=== PATIENT | female | born 1990 | race Caucasian/White ===

== ENCOUNTER 2016-05-12 16:23 | Outpatient (CLI) | payer BC, MEDICAID ==
[~2016-05-12] VITALS: Ht 175.3 cm; Wt 111.6 kg
[~2016-05-12 16:23] MED LIST: ACHD5005 PO; ALDACTONE25 MG; AMLO2.5T; AMLO5TAB4 PO; BCP; CIPR500T4 PO; HYDR1TAB PO; IBP600T1 PO; IBP800T PO; LANS30CA PO; METH4TAB PO; MTF500T; NAPR-243 PO; PNV91TAB3 PO; PRD20T PO; PREN-102 PO; PROG100C3; SULF1TAB35 PO; SULF1TAB38 PO; [UNRECOGNIZED DRUG - OTHER]; [UNRECOGNIZED DRUG - REMARK]
[2016-05-12] MEDS ORDERED: METR500T PO (16:31)
[2016-05-12] MEDS ORDERED: NS IV 1000 ML 1,000 ML IV SCH (16:45)
--- NOTE | 2016-05-13 11:22 | Physician Query-Final Dx ---
LISSETTE DEE 05/13/16 1122: Final Diagnosis Give Final Diagnosis Please give Final Diagnosis IVANA PEREZ DO 05/21/16 0722: Final Diagnosis Give Final Diagnosis 27 week IUP UTI Uterine cramping Vaginal discharge LISSETTE DEE May 13, 2016 11:22 IVANA PEREZ DO May 21, 2016 07:22
== END 2016-05-12 18:18 ==
LOC: WSo 16:23 → LDRP 16:24 → WSo 18:18
PROVIDERS: ATTEND Obstetrics & Gynecology
DX: O23.92 Unspecified genitourinary tract infection in pregnancy, second trimester (principal); O26.892 Other specified pregnancy related conditions, second trimester; N89.8 Other specified noninflammatory disorders of vagina; Z3A.27 27 weeks gestation of pregnancy
CPT/HCPCS: 96360; 99214

== ENCOUNTER 2016-07-01 19:28 | Outpatient (CLI) | payer BC, MEDICAID ==
[~2016-07-01] VITALS: Ht 170.2 cm; Wt 111.1 kg
[~2016-07-01 19:28] MED LIST changes: +METR500T PO
[2016-07-01 19:45] VITALS: BP 123/72
[2016-07-01 20:13] LABS: BILIRUBIN,URINE NEGATIVE (NEGATIVE); KETONES,URINE NEGATIVE (NEGATIVE); LEUKOCYTE ESTERASE ,URINE 2+ (NEGATIVE); NITRITE,URINE NEGATIVE (NEGATIVE); PH,URINE 6.5 (5-9); PROTEIN,URINE 1+ (NEGATIVE); UROBILINOGEN,URINE NORMAL (NORMAL)
[2016-07-01 20:21] LABS: CALCIUM OXALATE CRYSTALS,UR RARE /LPF; SQUAMOUS EPITHELIAL CELL,UR >50 /HPF
[2016-07-01 21:05] VITALS: BP 118/64
[2016-07-01] MEDS ORDERED: D5 LR IV SOLUTION 1,000 ML IV SCH (22:00)
[2016-07-01] MEDS ORDERED: ONDANSETRON 4 MG/2 ML (SDV) Z0FRAN IVP ONE (22:00)
[2016-07-02] MEDS ORDERED: D5 LR IV SOLUTION 1,000 ML IV SCH (02:00)
--- NOTE | 2016-07-02 11:00 | Physician Query-Final Dx ---
NICK METCALF 07/02/16 1100: Clinic Account Progress/Dx Physician Query: Please give diagnosis Date of Service Jul 01, 2016 at 19:28 IVANA PEREZ DO 07/07/16 0828: Clinic Account Progress/Dx DIAGNOSIS: Diagnosis 33 week iup Cough Vaginal discharge Tobacco use in Morbid obesity NICK METCALF Jul 02, 2016 11:00 IVANA PEREZ DO Jul 07, 2016 08:28
== END 2016-07-01 21:15 | disposition home or self-care (01) ==
LOC: LDRP 19:28 → WSo 19:28
PROVIDERS: ATTEND Obstetrics & Gynecology
DX: O99.89 Other specified diseases and conditions complicating pregnancy, childbirth and the puerperium (principal); R05 Cough; N89.8 Other specified noninflammatory disorders of vagina; O99.333 Smoking (tobacco) complicating pregnancy, third trimester; F17.210 Nicotine dependence, cigarettes, uncomplicated; O99.213 Obesity complicating pregnancy, third trimester; E66.01 Morbid (severe) obesity due to excess calories; Z68.38 Body mass index [BMI] 38.0-38.9, adult; Z3A.33 33 weeks gestation of pregnancy
CPT/HCPCS: 81000; 87088; 99212

== ENCOUNTER 2016-08-01 18:24 | Outpatient (CLI) | payer BC, MEDICAID ==
[~2016-08-01] VITALS: Ht 175.3 cm; Wt 110.7 kg
[2016-08-01 18:45] VITALS: BP 120/67
[2016-08-01 18:56] LABS: BILIRUBIN,URINE NEGATIVE (NEGATIVE); KETONES,URINE NEGATIVE (NEGATIVE); LEUKOCYTE ESTERASE ,URINE 1+ (NEGATIVE); NITRITE,URINE NEGATIVE (NEGATIVE); PH,URINE 7 (5-9); PROTEIN,URINE NEGATIVE (NEGATIVE); UROBILINOGEN,URINE NORMAL (NORMAL)
--- NOTE | 2016-08-01 19:22 | Progress Note-Standard ---
Standard Progress Note Progress Notes/Assess & Plan Progress/Assessment & Plan This 26-year-old female presents this evening with lower abdominal cramping that been going on for the past 2-3 days. She denies any regular contractions. She denies any loss of fluid. She reports that she has an ongoing discharge that but she has had this most of the . she reports regular movement. She is scheduled for repeat at 39 weeks Laboratory Tests Test 08/01/16 18:47 Range/Units Urine Color YELLOW Urine Clarity CLEAR Urine pH 7 5-9 Urine Specific [place] 1.010 L 1.016-1.022 Urine Protein NEGATIVE NEGATIVE Urine Glucose (UA) NEGATIVE NEGATIVE Urine Ketones NEGATIVE NEGATIVE Urine Nitrite NEGATIVE NEGATIVE Urine Bilirubin NEGATIVE NEGATIVE Urine Urobilinogen NORMAL NORMAL MG/DL Urine Leukocyte Esterase 1+ H NEGATIVE Urine RBC (Auto) NEGATIVE NEGATIVE Urine RBC NONE /HPF Urine WBC 2-5 /HPF Urine Squamous Epithelial Cells 2-5 /HPF Urine Crystals PRESENT H /LPF Urine Amorphous Sediment FEW BERKLEY URATES H /LPF Urine Bacteria NONE /HPF Urine Casts NONE /LPF Urine Mucus NEGATIVE /LPF Urine Culture Indicated NO NST: Reactive baseline 140 moderate variability accelerations present no decelerations Tocometry: Areas of irritability but no identifiable contractions noted SVE: Cervix is 1/50/-3 Diagnosis: 37 week IUP Previous section Lower abdominal discomfort Plan: Labor precautions reviewed Patient told to return to care if any further concern, or keep follow-up appointment next week IVANA PEREZ DO Aug 01, 2016 7:22 pm
[2016-08-01 19:23] VITALS: BP 117/71
== END 2016-08-01 19:35 | disposition home or self-care (01) ==
LOC: LDRP 18:24 → WSo 18:24
PROVIDERS: ATTEND Obstetrics & Gynecology
DX: O99.89 Other specified diseases and conditions complicating pregnancy, childbirth and the puerperium (principal); R10.30 Lower abdominal pain, unspecified; O34.219 Maternal care for unspecified type scar from previous cesarean delivery
CPT/HCPCS: 81000; 99213

== ENCOUNTER 2016-08-04 12:31 | Outpatient (CLI) | payer BC, MEDICAID ==
[~2016-08-04] VITALS: Ht 175.3 cm; Wt 109.9 kg
[2016-08-04 12:40] VITALS: BP 124/77
== END 2016-08-04 13:05 | disposition home or self-care (01) ==
LOC: PREOP 12:31
PROVIDERS: ATTEND Obstetrics & Gynecology
DX: Z01.812 Encounter for preprocedural laboratory examination (principal); Z11.2 Encounter for screening for other bacterial diseases; O34.211 Maternal care for low transverse scar from previous cesarean delivery
CPT/HCPCS: 86850; 86900; 86901; 87081

== ENCOUNTER 2016-08-09 14:50 | Inpatient (IN) | payer BC, MEDICAID ==
[~2016-08-09] VITALS: Ht 175.3 cm; Wt 109.9 kg
[2016-08-09 15:10] VITALS: BP 126/76
[2016-08-09] MEDS ORDERED: LACTATED RINGERS 1,000 ML IV PRN ×2 (15:39)
[2016-08-09] MEDS ORDERED: FAMOTIDINE 20MG/2ML IV (PEPCID) IV ONE (15:45)
[2016-08-09] MEDS ORDERED: ceFAZolin 2 GM/50 ML NS 50 ML IV ONE ×2 (15:45→18:33)
[2016-08-09] MEDS ORDERED: CITRIC ACID/SOB CIT (BICITRA) 30 ML UDC PO ONE (15:45)
[2016-08-09] MEDS ORDERED: CATHETER FLUSH 10 ML SYR IV PRN (15:45)
[2016-08-09] MEDS ORDERED: METOCLOPRAMIDE INJ 10 MG/2 ML (REGLAN) IV ONE (15:45)
[2016-08-09 16:10] LABS: BASOPHILS % (AUTO) 0 % (0-10); EOSINOPHILS # (AUTO) 0.1 10^3/uL (0.0-0.3); EOSINOPHILS % (AUTO) 1 % (0-10); LYMPHOCYTES # (AUTO) 2.6 X 10^3 (1.0-4.0); LYMPHOCYTES % (AUTO) 23 % (12-44); MEAN CORPUSCULAR HEMOGLOBIN 30 PG (25-34); MEAN CORPUSCULAR HGB CONC 34 G/DL (32-36); MEAN CORPUSCULAR VOLUME 88 FL (80-99); MEAN PLATELET VOLUME 12.9 FL (7.4-10.4); MONOCYTES # (AUTO) 0.7 X 10^3 (0.0-1.0); MONOCYTES % (AUTO) 6 % (0-12); NEUTROPHILS % (AUTO) 70 % (42-75); PLATELET COUNT 176 10^3/uL (130-400); RED BLOOD COUNT 3.92 10^6/uL (4.35-5.85); RED CELL DISTRIBUTION WIDTH 12.8 % (10.0-14.5); WHITE BLOOD COUNT 11.5 10^3/uL (4.3-11.0)
--- NOTE | 2016-08-09 16:54 | History & Physical-OB ---
OB - Chief Complaint & HPI Date Date of Admission: Date of Admission: Aug 09, 2016 at 2:50 pm Chief Complaint/History OB-Reason for Admission/Chief: Section Hx : 2 Hx Para: 1 Expected Date of Delivery: Aug 18, 2016 Gestational Age in Weeks: 38 Gestational Age in Days: 5 Indication for : desires repeat Other reason for admission: Patient sent up from office due to low abdominal incisional pain, and uterine irritability. Noncompliance with blood sugar long's, gestational diabetic Admission Nurse Assessment Rev: Yes History of Labs O pos Antibody anti E pos, titers <1, never higher RI RPR NR HBsAg NR HIV NR GC neg GBS neg Allergies and Home Medications Allergies Coded Allergies: NKANo Known Allergies (Verified Allergy, Mild, 07/01/16) Home Medications Pnv95/Ferrous Fumarate/FA 1 Each Tablet, 1 EACH PO DAILY, (Reported) OB - History Hx of Present Care: Yes Ultrasounds: Normal mid trimester US Obstetrical Complications: Gestational Diabetes (noncompliant with logs, diet controlled) Delivery History Hx Blood Disorders: No Adverse Rxn to Tranfusion: No Patient Past Medical History Obesity BMI 35 Immunizations Tetanus Booster (TDap): Unknown Date of Influenza Vaccine: Jan 24, 2016 OB - Admission Exam Physical Exam HEENT: NCAT Heart: Rhythm Normal Lungs: Clear Abdomen: Gravid Heart Rate: 130's Accelerations: Accelerations Present Decelerations: No Decelerations Short Term Variability: Present Senior Living Variability: Average (6-25) Contractions on Admission: 6-10 Minutes Apart Intensity: Mild Labs Laboratory Tests Test 08/09/16 15:57 Range/Units White Blood Count 11.5 H 4.3-11.0 10^3/uL Red Blood Count 3.92 L 4.35-5.85 10^6/uL Hemoglobin 11.6 11.5-16.0 G/DL Hematocrit 34 L 35-52 % Mean Corpuscular Volume 88 80-99 FL Mean Corpuscular Hemoglobin 30 25-34 PG Mean Corpuscular Hemoglobin Concent 34 32-36 G/DL Red Cell Distribution Width 12.8 10.0-14.5 % Platelet Count 176 130-400 10^3/uL Mean Platelet Volume 12.9 H 7.4-10.4 FL Neutrophils (%) (Auto) 70 42-75 % Lymphocytes (%) (Auto) 23 12-44 % Monocytes (%) (Auto) 6 0-12 % Eosinophils (%) (Auto) 1 0-10 % Basophils (%) (Auto) 0 0-10 % Neutrophils # (Auto) 8.0 H 1.8-7.8 X 10^3 Lymphocytes # (Auto) 2.6 1.0-4.0 X 10^3 Monocytes # (Auto) 0.7 0.0-1.0 X 10^3 Eosinophils # (Auto) 0.1 0.0-0.3 10^3/uL Basophils # (Auto) 0.0 0.0-0.1 10^3/uL OB - Assessment/Plan/Diagnosis Assessment Assessment: section Plan Plan: Section Discharge Diagnosis Diagnosis: 26-year-old at 38.5 weeks gestation Incisional pain with prior section GDM A1 diet controlled, however noncompliance with blood sugar logs GBS negative BMI 35 IVANA PEREZ DO Aug 09, 2016 4:53 pm
[2016-08-09] MEDS ORDERED: METOCLOPRAMIDE INJ 10 MG/2 ML (REGLAN) ONE (18:32)
[2016-08-09] MEDS ORDERED: CITRIC ACID/SOB CIT (BICITRA) 30 ML UDC ONE (18:32)
[2016-08-09] MEDS ORDERED: FAMOTIDINE 20MG/2ML IV (PEPCID) ONE (18:33)
[2016-08-09] MEDS ORDERED: OXYTOCIN/NORMAL SALINE 1,000 ML IV ONE (18:46)
[2016-08-09] MEDS ORDERED: fentaNYL INJECTION 100 MCG/2 ML AMP ONE (18:46)
[2016-08-09] MEDS ORDERED: ONDANSETRON 4 MG/2 ML (SDV) Z0FRAN ONE (18:46)
[2016-08-09] MEDS ORDERED: DEXAMETHASONE PF 10 MG/ML (DECADRON) VIAL ONE (18:46)
[2016-08-09] MEDS ORDERED: KETOROLAC 30 MG/ML VIAL ONE (19:36)
[2016-08-09] MEDS ORDERED: LACTATED RINGERS 1,000 ML IV ONE (19:36)
[2016-08-09] MEDS ORDERED: OXYTOCIN/NORMAL SALINE 500 ML IV SCH (19:54)
[2016-08-09] MEDS ORDERED: HYDROmorphone (DILAUDID) 2 MG/ML VIAL IVP PRN (20:00)
[2016-08-09] MEDS ORDERED: TETANUS,DIPTH,PERTUSS P/F (BOOSTRIX) 0.5 ML VIAL IM SCH (20:00)
[2016-08-09] MEDS ORDERED: MEASLES,MUMPS,RUBELLA 1 EA INJ SC SCH (20:00)
[2016-08-09] MEDS ORDERED: ONDANSETRON 4 MG/2 ML (SDV) Z0FRAN IVP PRN (20:00)
[2016-08-09] MEDS ORDERED: DOCU100C37 PO (20:01)
[2016-08-09] MEDS ORDERED: IBUP-1773 PO (20:01)
[2016-08-09] MEDS ORDERED: HYDR-3812 PO (20:01)
--- NOTE | 2016-08-09 20:02 | Discharge Inst-Women's Service ---
Discharge Inst-Women's Serv Depart Medication/Instructions New, Converted or Re-Newed RX: RX on Chart Consults/Follow Up Additional Follow Up: Yes Activity Activity: Activity as Tolerated Driving Instructions: No Driving for 1 Week NO SMOKING: NO SMOKING Nothing Inside Vagina: No Douching, No Sanderson, No Tampons Diet Discharge Diet: No Restrictions Symptoms to Report to : Bleeding Excessive, Pain Increased, Fever Over 101 Degrees F, Vaginal Bleeding Increase, Questions/Concerns For Any Problems or Questions: Contact Your Physician Skin/Wound Care Infection Signs and Symptoms: Increased Redness, Foul Odor of Wound, Increased Drainage, Skin Itchy or Has a Rash, Increased Swelling, Temperature Above 101 F Operative Area Clean and Dry: Keep Incision Clean/Dry Stitches/[place]/Dermabond: Dermabond, Care of Stitches Bathing Instructions: IVANA Owen DO Aug 09, 2016 20:02
[2016-08-09] MEDS ORDERED: ONDANSETRON 4 MG/2 ML (SDV) Z0FRAN IV PRN (20:15)
[2016-08-09] MEDS ORDERED: NALOXONE 0.4 MG/ML 1 ML (NARCAN) VIAL IV PRN ×2 (20:15)
[2016-08-09] MEDS ORDERED: METOCLOPRAMIDE INJ 10 MG/2 ML (REGLAN) IV PRN (20:15)
[2016-08-09] MEDS ORDERED: diphenhydrAMINE 50 MG/ML INJ (BENADRYL) IV PRN (20:15)
[2016-08-09 20:57] VITALS: BP 122/80
[2016-08-09] MEDS ORDERED: CATHETER FLUSH 10 ML SYR IV SCH (22:00)
[2016-08-09] MEDS: HYDROcodone/APAP 5 MG/325 MG (LORTAB) TAB PO PRN (23:32)
[2016-08-10 00:15] VITALS: BP 103/64
[2016-08-10] MEDS: KETOROLAC 30 MG/ML VIAL IVP SCH ×2 (02:08→09:13)
[2016-08-10 05:15] VITALS: BP 104/61
[2016-08-10 06:54] LABS: BASOPHILS % (AUTO) 0 % (0-10); EOSINOPHILS % (AUTO) 0 % (0-10); LYMPHOCYTES # (AUTO) 1.7 X 10^3 (1.0-4.0); LYMPHOCYTES % (AUTO) 11 % (12-44); MEAN CORPUSCULAR HEMOGLOBIN 30 PG (25-34); MEAN CORPUSCULAR HGB CONC 34 G/DL (32-36); MEAN CORPUSCULAR VOLUME 88 FL (80-99); MEAN PLATELET VOLUME 13.7 FL (7.4-10.4); MONOCYTES # (AUTO) 0.6 X 10^3 (0.0-1.0); MONOCYTES % (AUTO) 4 % (0-12); NEUTROPHILS # (AUTO) 14.1 X 10^3 (1.8-7.8); NEUTROPHILS % (AUTO) 86 % (42-75); PLATELET COUNT 168 10^3/uL (130-400); RED BLOOD COUNT 3.75 10^6/uL (4.35-5.85); RED CELL DISTRIBUTION WIDTH 12.7 % (10.0-14.5); WHITE BLOOD COUNT 16.4 10^3/uL (4.3-11.0)
[2016-08-10] MEDS: DOCUSATE SODIUM 100 MG (COLACE) CAP PO SCH ×2 (09:09→21:32)
[2016-08-10] MEDS: HYDROcodone/APAP 5 MG/325 MG (LORTAB) TAB PO PRN ×2 (09:10→16:43)
[2016-08-10 09:14] VITALS: BP 101/57
--- NOTE | 2016-08-10 11:56 | Postpartum Progress Note ---
Post Op Post-operative Day #1 s/p RLTCS, gestational diabetes Subjective: Patient is without complaints. Ambulating, voiding after ozuna removed. Tolerating a regular diet without nausea or vomiting. Normal lochia. Pain is well controlled with oral pain medications. Passing flatus. Objective: Laboratory Tests Test 08/09/16 15:57 08/10/16 05:57 Range/Units White Blood Count 11.5 H 16.4 H 4.3-11.0 10^3/uL Red Blood Count 3.92 L 3.75 L 4.35-5.85 10^6/uL Hemoglobin 11.6 11.1 L 11.5-16.0 G/DL Hematocrit 34 L 33 L 35-52 % Mean Corpuscular Volume 88 88 80-99 FL Mean Corpuscular Hemoglobin 30 30 25-34 PG Mean Corpuscular Hemoglobin Concent 34 34 32-36 G/DL Red Cell Distribution Width 12.8 12.7 10.0-14.5 % Platelet Count 176 168 130-400 10^3/uL Mean Platelet Volume 12.9 H 13.7 H 7.4-10.4 FL Neutrophils (%) (Auto) 70 86 H 42-75 % Lymphocytes (%) (Auto) 23 11 L 12-44 % Monocytes (%) (Auto) 6 4 0-12 % Eosinophils (%) (Auto) 1 0 0-10 % Basophils (%) (Auto) 0 0 0-10 % Neutrophils # (Auto) 8.0 H 14.1 H 1.8-7.8 X 10^3 Lymphocytes # (Auto) 2.6 1.7 1.0-4.0 X 10^3 Monocytes # (Auto) 0.7 0.6 0.0-1.0 X 10^3 Eosinophils # (Auto) 0.1 0.0 0.0-0.3 10^3/uL Basophils # (Auto) 0.0 0.0 0.0-0.1 10^3/uL Vital Sign - Last 12Hours 08/10/16 08/10/16 08/10/16 00:15 05:15 09:14 Temp 98.2 96.7 97.5 Pulse 54 48 47 Resp 18 18 18 B/P (MAP) 103/64 104/61 101/57 Pulse Ox 97 97 96 O2 Delivery Room Air Room Air Room Air Intake and Output 08/10/16 00:00 Intake Total 1050 ml Output Total 800 ml Balance 250 ml Physical Exam: General - Alert and oriented, no apparent distress Abdomen - Soft, appropriately tender to palpation, non-distended, fundus firm at umbilicus Incision - clean, dry and intact; no erythema or induration, no drainage Extremities - no edema, negative Sheila's bilaterally Assessment: 1. post-operative day # 1, status post RLTCS. Recovering well, hemodynamically stable gestational diabetes Plan: Routine post-operative care. Encourage breast feeding. Encourage ambulation. VTE prophylaxis: SCDs. Ferrous sulfate supplementation. Plan for discharge tomorrow or Vitals - Labs Vital Signs - I&O Vital Signs Date Time Temp Pulse Resp B/P (MAP) Pulse Ox O2 Delivery O2 Flow Rate FiO2 08/10/16 09:14 97.5 47 18 101/57 96 Room Air 08/10/16 05:15 96.7 48 18 104/61 97 Room Air 08/10/16 00:15 98.2 54 18 103/64 97 Room Air 08/09/16 20:57 97.9 54 20 122/80 98 Room Air 08/09/16 15:10 98.3 71 18 126/76 Room Air I & O 08/10/16 07:00 Intake Total 3050 ml Output Total 2500 ml Balance 550 ml Labs Laboratory Tests 08/09/16 15:57: White Blood Count 11.5H, Red Blood Count 3.92L, Hemoglobin 11.6, Hematocrit 34L , Mean Corpuscular Volume 88, Mean Corpuscular Hemoglobin 30, Mean Corpuscular Hemoglobin Concent 34, Red Cell Distribution Width 12.8, Platelet Count 176, Mean Platelet Volume 12.9H, Neutrophils (%) (Auto) 70, Lymphocytes (%) (Auto) 23 , Monocytes (%) (Auto) 6, Eosinophils (%) (Auto) 1, Basophils (%) (Auto) 0, Neutrophils # (Auto) 8.0H, Lymphocytes # (Auto) 2.6, Monocytes # (Auto) 0.7, Eosinophils # (Auto) 0.1, Basophils # (Auto) 0.0 08/10/16 05:57: White Blood Count 16.4H, Red Blood Count 3.75L, Hemoglobin 11.1L, Hematocrit 33L , Mean Corpuscular Volume 88, Mean Corpuscular Hemoglobin 30, Mean Corpuscular Hemoglobin Concent 34, Red Cell Distribution Width 12.7, Platelet Count 168, Mean Platelet Volume 13.7H, Neutrophils (%) (Auto) 86H, Lymphocytes (%) (Auto) 11L, Monocytes (%) (Auto) 4, Eosinophils (%) (Auto) 0, Basophils (%) (Auto) 0, Neutrophils # (Auto) 14.1H, Lymphocytes # (Auto) 1.7, Monocytes # (Auto) 0.6, Eosinophils # (Auto) 0.0, Basophils # (Auto) 0.0 BERKLEY RODRÍGUEZ DO Aug 10, 2016 11:56
[2016-08-10 13:22] VITALS: BP 94/58
[2016-08-10] MEDS ORDERED: IBUPROFEN 600 MG (MOTRIN) TAB PO ONE (15:13)
[2016-08-10] MEDS: IBUPROFEN 600 MG (MOTRIN) TAB PO SCH ×2 (15:17→21:32)
--- NOTE | 2016-08-10 15:19 | Anesthesia-Regional Post-Op ---
Regional Patient Condition Mental Status: Alert, Oriented x3 Circulation: Same as Pre-Op Headache: Absent Sensation: Full Recovery Motor Block: Absent Post Op Complications Complications None Follow Up Care/Instructions Patient Instructions None needed. Anesthesia/Patient Condition Patient is doing well, no complaints, stable vital signs, no apparent adverse anesthesia problems. No complications reported per nursing. D/C home per [facility] Criteria: No MARIA D GUNTER CRNA Aug 10, 2016 15:19
[2016-08-10 22:00] VITALS: BP 103/63
[2016-08-11] MEDS ORDERED: CALCIUM CARBONATE 500 MG (TUMS) TAB.CHEW PO ONE (00:15)
[2016-08-11 04:37] VITALS: BP 113/70
[2016-08-11] MEDS: IBUPROFEN 600 MG (MOTRIN) TAB PO SCH ×2 (04:37→10:05)
[2016-08-11 08:10] VITALS: BP 117/68
--- NOTE | 2016-08-11 08:17 | Postpartum Progress Note ---
Post Op Post-operative Day #2 Subjective: Patient is without complaints. Ambulating, voiding. Tolerating a regular diet without nausea or vomiting. Normal lochia. Pain is well controlled with oral pain medications. Passing flatus. Breast/bottle feeding. Objective: Vital Sign - Last 12Hours 08/10/16 08/10/16 08/11/16 22:00 22:05 04:37 Temp 97.9 96.7 Pulse 64 65 Resp 18 18 B/P (MAP) 103/63 113/70 Pulse Ox 95 95 97 O2 Delivery Room Air Room Air Room Air Intake and Output 08/11/16 00:00 Intake Total 800 ml Output Total 2150 ml Balance -1350 ml Physical Exam: General - Alert and oriented, no apparent distress Abdomen - Soft, appropriately tender to palpation, non-distended, fundus firm at umbilicus Incision - clean, dry and intact; no erythema or induration, no drainage Extremities - trace bilat pitting edema, negative Sheila's bilaterally Assessment: 26 y/o post-operative day # 2, status post RLTCS. GDMA1 Class II obesity Rh+ Hgb 11.1 Plan: Routine post-operative care. Encourage breast feeding. Encourage ambulation. VTE prophylaxis: SCDs. Will need f/u screening for DM outside of Plan for discharge today, f/u with Dr. Gray next week Vitals - Labs Vital Signs - I&O Vital Signs Date Time Temp Pulse Resp B/P (MAP) Pulse Ox O2 Delivery O2 Flow Rate FiO2 08/11/16 04:37 96.7 65 18 113/70 97 Room Air 08/10/16 22:05 95 Room Air 08/10/16 22:00 97.9 64 18 103/63 95 Room Air 08/10/16 13:22 98.0 54 18 94/58 96 Room Air 08/10/16 09:14 97.5 47 18 101/57 96 Room Air I & O 08/11/16 07:00 Intake Total 800 ml Output Total 2150 ml Balance -1350 ml TRACI POLO MD Aug 11, 2016 08:17
[2016-08-11] MEDS: DOCUSATE SODIUM 100 MG (COLACE) CAP PO SCH (08:26)
--- NOTE | 2016-08-11 09:29 | OPERATIVE REPORT ---
PROCEDURE PHYSICIAN: MAURICIO PEREZ DATE OF PROCEDURE: 08/09/2016 PREOPERATIVE DIAGNOSIS: 1. 26-year-old G2, P1 at 38 weeks and 5 days gestation. 2. Previous section. 3. Lower abdominal pain over the incision. POSTOPERATIVE DIAGNOSIS: 1. 26-year-old G2, P1 at 38 weeks and 5 days gestation. 2. Previous section. 3. Lower abdominal pain over the incision. PROCEDURE: Repeat section. SURGEON: Dr. Mauricio Perez. KOSHER SEALER: Toshia Parker MS 4. ANESTHESIA: Spinal. ESTIMATED BLOOD LOSS: 400 mL. URINE OUTPUT: 400 mL, clear at the end of the procedure. FLUIDS: 1000 mL lactated ringer solution. FINDINGS: Live male infant weighing 6 pounds, 5 ounces, Apgars of 2 and 8. Grossly normal appearing uterus, bilateral fallopian tubes, and ovaries. SPECIMEN SENT: Placenta. INDICATIONS FOR THE PROCEDURE: This is a 26-year-old female presented to my office earlier today with chief complaint of lower abdominal and pelvic pressure and pain over the incision. Upon palpation in the office she did demonstrate pain when palpated over uterine incision and was noted to have an occasional contraction on NST monitoring. She was sent up to labor and delivery to be delivered due to her proximity to 39 weeks being on Tuesday. The risk of the procedure were discussed with the patient in detail including risk of bleeding, infection, damaging any of the surrounding structures, including not limited to the bowel, bladder, ureter, kidneys, risk for possible need for blood transfusion, risk from anesthesia. After all questions were answered, consent was obtained and the patient taken to the operating room. OPERATIVE REPORT IN DETAIL: Once in the operative room, spinal analgesia was found to be adequate. She was placed in the supine position with leftward tilt, prepped and draped in a normal sterile fashion. A Pfannenstiel skin incision was made through the previously existing scar using a knife and carried down to the underlying fascia using Bovie cautery. The fascial incision was extended laterally using Bovie cautery. The superior aspect of the fascial incision is then grasped with Daija clamps, tented upward and dissected off the underlying rectus muscles. The inferior aspect of the fascial incision was then grasped with Daija clamps, tented upward and dissected off the underlying rectus muscles. The rectus muscles are dissected down the midline using Schwab scissors exposing peritoneum which is entered bluntly. The peritoneal incision was extended bluntly and then the Dante ring retractor placed in the peritoneal incision which offers excellent lateral sidewall retraction. I then identify the lower uterine segment which was found to be thinned out. I make a low transverse incision through the vesicouterine peritoneum and bluntly dissect this off the lower uterine segment creating a bladder flap. I then proceed with my myotomy until membranes are visualized at which point I extend the uterine incision laterally and superiorly using banded scissors. I then perform amniotomy using my digits. Clear fluid is noted. The is found in vertex presentation. I elevate the infant's head up to the incision, with gentle fundal pressure. The 's head is delivered through the incision where nares and oropharynx are bulb suctioned. A nuchal cord reduced x1. Anterior posterior shoulders are delivered and the infant is then brought onto the operative field where the cord is dually cut and the infant is handed off to the awaiting pediatric nurses in attendance. The cord blood was collected for analysis. Three vessel cord with intact placenta was delivered spontaneously thereafter. IV Pitocin is initiated to facilitate traction and the fundus becomes firm with bimanual massage. The uterus is exteriorized and cleared of all endometrial, clots and debris. I then close the uterine incision using 0 Vicryl suture in a running lock fashion. A second layer of imbricating 0 Monocryl is placed. Excellent hemostasis noted after doing so. I then place the uterus, bilateral fallopian tubes, and ovaries back within the pelvis and copiously irrigate the pelvis using normal saline. There is no active bleeding noted from my dissection planes. I then place intercede antiadhesive in my low transverse incision and proceed with closing the peritoneum using 2-0 Vicryl suture in a running fashion. The rectus muscles were reapproximated using 2-0 Vicryl suture, the fascia was reapproximated using 0 Vicryl suture in a running fashion. Subcutaneous tissues was reapproximated using 3-0 plain interrupted subcutaneous stitch and skin reapproximated using 4-0 Monocryl in a running subcuticular. Dermabond is applied to the incision, a sterile dressing and adhesive white tape. The patient tolerated the procedure well and was taken to the recovery area in stable condition. Lap sponge counts were correct at the end of the procedures, instrument counts correct as well. 2 grams Ancef for infection prophylaxis. Job ID: [id number] Dictated Date: 08/09/2016 19:50:40 Forest Fire Prevention Manager Date: 08/11/2016 09:10:36 / sita
[2016-08-11] MEDS: HYDROcodone/APAP 5 MG/325 MG (LORTAB) TAB PO PRN (10:11)
[2016-08-11 13:10] VITALS: BP 138/74
== END 2016-08-11 13:15 | disposition home or self-care (01) | DRG 766 ==
LOC: LDRP 14:50
PROVIDERS: ADMIT Obstetrics & Gynecology; ATTEND Obstetrics & Gynecology
PROC: 3E0P05Z Introduction of Adhesion Barrier into Female 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, Open Approach (ICD-10-PCS; 2016-08-09)
PROC: 10D00Z1 Extraction of Products of Conception, Low, Open Approach (ICD-10-PCS; principal; 2016-08-09 18:54)
DX: O34.211 Maternal care for low transverse scar from previous cesarean delivery (principal); O24.410 Gestational diabetes mellitus in pregnancy, diet controlled; O69.81X0 Labor and delivery complicated by cord around neck, without compression, not applicable or unspecified; O99.213 Obesity complicating pregnancy, third trimester; E66.9 Obesity, unspecified; Z68.35 Body mass index [BMI] 35.0-35.9, adult; Z3A.38 38 weeks gestation of pregnancy; Z37.0 Single live birth; Z23 Encounter for immunization
CPT/HCPCS: 36415; 85025; 86850; 86900; 86901; 90715; 94664

== ENCOUNTER 2017-05-03 21:54 | Emergency (ER) | payer BC, MEDICAID ==
[~2017-05-03] VITALS: Ht 170.2 cm; Wt 108.9 kg
[~2017-05-03 21:54] MED LIST changes: +DOCU100C37 PO; +IBUP-1773 PO
--- NOTE | 2017-05-03 23:51 | ED General ---
General Chief Complaint: -Female Stated Complaint: MIRENA ISSUES Nursing Triage Note: PT TO ED 5 W/ C/O "FLUTTERING" IN LOWER ABD. PT REPORTS SHE HAS A MIRENA BUT THINKS SHE MAY BE . PT DOES REPORT A FEW MONTHS AGO SHE HAD "SORE NIPPLES" SO SHE TOOK A TEST THAT WAS NEGATIVE BUT SHE STILL FEELS LIKE SHE IS Nursing Sepsis Screen: No Definite Risk Allergies and Home Medications Allergies Coded Allergies: NKANo Known Allergies (Verified Allergy, Mild, 07/01/16) Home Medications Docusate Sodium 100 Mg Capsule, 100 MG PO BID PRN for CONSTIPATION-1ST LINE, #40 Prescribed by: IVANA PEREZ on 08/09/162000 Hydrocodone Bit/Acetaminophen 1 Each Tablet, 1-2 TAB PO Q4H PRN for PAIN- MODERATE, #50 Prescribed by: IVANA PEREZ on 08/09/162000 Ibuprofen 600 Mg Tablet, 600 MG PO Q6H, #60 Prescribed by: IVANA PEREZ on 08/09/162000 Pnv95/Ferrous Fumarate/FA 1 Each Tablet, 1 EACH PO DAILY, (Reported) Past Lxsbtjv-Qmuwce-Otlxoj Hx Patient Social History Alcohol Use: Occasionally Uses Recreational Drug Use: No Smoking Status: Current Everyday Smoker Type Used: Cigarettes Former Smoker, Quit: Jul 01, 2016 Recent Foreign Travel: No Contact w/Someone Who Travel: No Recent Infectious Disease Expo: No Recent Hopitalizations: No Physical Abuse: No Sexual Abuse: No Mistreated: No Fear: No Immunizations Up To Date Tetanus Booster (TDap): Unknown Date of Influenza Vaccine: Jan 24, 2016 Seasonal Allergies Seasonal Allergies: No Surgeries History of Surgeries: Yes (plantar fasciotomy, removal of ovarian cyst and cyst on sternum) Surgeries: Section, Orthopedic Respiratory History of Respiratory Disorde: No Cardiovascular History of Cardiac Disorders: No Neurological History of Neurological Disord: No 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 System Hx 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 Disorders: Yes Female 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 Disorders: Ovarian Cyst Genitourinary History of Genitourinary Disor: No Gastrointestinal History of Gastrointestinal Di: No Musculoskeletal History of Musculoskeletal Dis: No Endocrine History of Endocrine Disorders: Yes (gestational diabetes) HEENT History of HEENT Disorders: No Cancer History of Cancer: No Psychosocial History of Psychiatric Problem: No Suicide Risk Score: 0 Integumentary History of Skin or Integumenta: No Blood Transfusions 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) Adverse Reaction to a Blood Tr: No Family Medical History Significant Family History: No Pertinent Family Hx Family Medial History: Abdominal aortic aneurysm 19 FATHER Arthritis Cataracts 19 MOTHER Completed stroke 19 FATHER (aunt) Diabetes mellitus 19 FATHER (uncle) Hypercholesterolemia 19 FATHER Hypertension 19 FATHER Myocardial infarction Neoplasm 19 FATHER (aunt) Seizure disorder 19 MOTHER Severe allergy 19 FATHER (dad had surgery, reports being allergic to anesthesia, "they told him he shouldn't have woken up") No Family History of: AIDS Oktibbeha's disease Alcoholism Alzheimer's disease Aphasia Asthma Cancer of mouth Cardiovascular disease Colon cancer Congenital disease Congenital heart disease Coronary thrombosis Cystic fibrosis Deafness or hearing loss Dementia Drug abuse Dysphasia Fibrocystic disease of breast Gastroenteritis Glaucoma Headache disorder Infertility Kidney disease Not obtainable due to adoption Osteoporosis Parkinson's disease Prostate cancer Psychosocial problem Respiratory disorder Thyroid disease Tuberculosis Visual disorder Physical Exam Vital Signs Vital Sign - Last 12Hours 05/03/17 22:29 Temp 98.7 Pulse 66 Resp 20 B/P (MAP) 124/91 (102) Pulse Ox 99 O2 Delivery Room Air Capillary Refill : Less Than 3 Seconds Laceration Repair : Suture Size: 4-0 Progress/Results/Core Measures Suspected Sepsis Recent Fever Within 48 Hours: No Infection Criteria Present: None New/Unexplained Altered Menta: No Sepsis Screen: No Definite Risk Sepsis Diagnosis: SIRS Temperature:98.7 Pulse: 66 Respiratory Rate: 20 Blood Pressure 124 /91 Mean: 102 Results/Orders Lab Results Laboratory Tests Test 05/03/17 22:56 Range/Units Urine Test NEGATIVE NEGATIVE My Orders Orders - DEEPTHI GARCIA MD Urine Bedside (05/03/17 23:00) Hcg,Qualitative Urine (05/03/17 23:07) Vital Signs/I&O Vital Sign - Last 12Hours 05/03/17 22:29 Temp 98.7 Pulse 66 Resp 20 B/P (MAP) 124/91 (102) Pulse Ox 99 O2 Delivery Room Air Capillary Refill : Less Than 3 Seconds Blood Pressure Mean: 102 Departure Impression Impression: Primary Impression: Breast tenderness in female Disposition: 01 HOME, SELF-CARE Condition: Stable Departure-Patient Inst. Decision time for Depature: 23:49 Referrals: ALICIA MARTIN MD (PCP) Primary Care Physician Patient Instructions: Mastalgia Add. Discharge Instructions: Your test was negative. Please follow-up with your gynecologic provider for a breast exam and further evaluation of your breast tendernessas as soon as possible . Return to care if symptoms worsen. All discharge instructions reviewed with patient and/or family. Voiced understanding. DEEPTHI GARCIA MD May 03, 2017 23:51
[2017-05-03 23:53] VITALS: BP 0/0
--- OUTSIDE RECORDS SUMMARY | 2017-05-04 13:38 | XMS REPORT ---
Author Author SHIRA IGNACIO Organization [facility] Address [address] [place] [address] Care Team Providers Care Hunter Name Role Phone SHIRA IGNACIO Unavailable PROBLEMS Type Condition ICD9-CM Code [id number] Code Onset Dates Condition Status SNOMED Code Problem Tendonitis M77.9 Active 23947643 Problem Plantar fasciitis, bilateral M72.2 Active 898583222 ALLERGIES No Known Allergies SOCIAL HISTORY Never Assessed PLAN OF CARE Activity Details Follow Up prn Reason: VITAL SIGNS Height 67 in 2016-06-10 Weight 244.8 lbs 2016-06-10 Temperature 98.2 degrees Fahrenheit 2016-06-10 Heart Rate 78 bpm 2016-06-10 Respiratory Rate 22 2016-06-10 BMI 38.34 kg/m2 2016-06-10 Blood pressure systolic 120 mmHg 2016-06-10 Blood pressure diastolic 74 mmHg 2016-06-10 MEDICATIONS Medication Instructions Dosage Frequency Start Date End Date Duration Status 28-0.8 MG Active Azithromycin 250 MG Orally Once a day 2 tablets on the first day, then 1 tablet daily for 4 days 24h May, May, 5 day(s) Active Clotrimazole 1 % Vaginal Once a day 1 application at bedtime 24h May, May, 7 day(s) Active RESULTS No Results PROCEDURES No Known procedures IMMUNIZATIONS No Known Immunizations MEDICAL (GENERAL) HISTORY Type Description Date Medical History plantar fasc Medical History gestational diabetes Surgical History Cyst Removal Surgical History Foot Surgery 2014 Surgical History c-sectionsx 2 Hospitalization History Surgery/childbirth
--- OUTSIDE RECORDS SUMMARY | 2017-05-04 13:40 | XMS REPORT ---
Author Author SARITA BARBOZA [facility] Address [address] [place] [address] Care Team Providers Care Information Systems Specialist Name Role Phone SARITA BARBOZA Unavailable PROBLEMS Type Condition ICD9-CM Code [id number] Code Onset Dates Condition Status SNOMED Code Problem Tendonitis M77.9 Active 04130145 Problem Plantar fasciitis, bilateral M72.2 Active [id number] ALLERGIES No Information SOCIAL HISTORY Never Assessed PLAN OF CARE VITAL SIGNS MEDICATIONS Medication Instructions Dosage Frequency Start Date End Date Duration Status Hydrocodone-Acetaminophen 5-325 MG Orally every 6 hrs 1 tablet as needed 6h August, Active RESULTS No Results PROCEDURES No Known procedures IMMUNIZATIONS No Known Immunizations MEDICAL (GENERAL) HISTORY Type Description Date Medical History plantar fasc Medical History gestational diabetes Surgical History Cyst Removal Surgical History Foot Surgery 2014 Surgical History c-sectionsx 2 Hospitalization History Surgery/childbirth
--- OUTSIDE RECORDS SUMMARY | 2017-05-04 13:40 | XMS REPORT | Continuity of Care Document ---
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 Automated erythrocyte mean corpuscular volume 88 [foz_us] 80-99 Automated erythrocyte mean corpuscular hemoglobin (mass per erythrocyte) 30 pg 25-34 Automated erythrocyte mean corpuscular hemoglobin concentration measurement ( mass/volume) 34 g/dL 32-36 Automated erythrocyte distribution width ratio 12.7 % 10.0-14.5 Automated blood platelet count (count/volume) 168 10*3/uL 130-400 Automated blood platelet mean volume measurement 13.7 [foz_us] 7.4-10.4 Automated blood neutrophils/100 leukocytes 86 % 42-75 Automated blood lymphocytes/100 leukocytes 11 % 12-44 Blood monocytes/100 leukocytes 4 % 0-12 Automated blood eosinophils/100 leukocytes 0 % 0-10 Automated blood basophils/100 leukocytes 0 % 0-10 Blood neutrophils automated count (number/volume) 14.1 10*3 1.8-7.8 Blood lymphocytes automated count (number/volume) 1.7 10*3 1.0-4.0 Blood monocytes automated count (number/volume) 0.6 10*3 0.0-1.0 Automated eosinophil count 0.0 10*3/uL 0.0-0.3 Automated blood basophil count (count/volume) 0.0 10*3/uL 0.0-0.1 Urine beta human chorionic gonadotropin (hCG) measurement - 05/03/17 22:56 Urine beta human chorionic gonadotropin (hCG) measurement NEGATIVE NEGATIVE Encounters ACCT No. Visit Date/Time Discharge Status Pt. Type Provider Facility Loc./Unit Complaint [id number] 05/30/2013 16:15:00 05/30/2013 23:59:59 CLS Outpatient JOSHUA PENA DDS [id number] 05/01/2013 10:45:00 05/01/2013 23:59:59 CLS Outpatient TERA NORWOOD APRN [id number] 04/03/2013 16:24:00 04/03/2013 23:59:59 CLS Outpatient JESSICA VILLAGRAN MD [id number] 09/12/2012 14:36:00 Document Registration [id number] 08/29/2012 17:54:00 Document Registration [id number] 08/24/2012 13:26:00 Document Registration [id number] 08/09/2016 14:50:00 08/11/2016 13:15:00 DIS Inpatient IVANA PEREZ DO [facility] LDRP PREVIOUS SECTION [id number] 08/04/2016 12:31:00 08/04/2016 13:05:00 DIS Outpatient IVANA PEREZ DO [facility] PREOP PREVIOUS SECTION [id number] 08/01/2016 18:24:00 08/01/2016 19:35:00 DIS Outpatient IVANA PEREZ DO [facility] WSo STOMACH/GROIN PAIN [id number] 07/01/2016 19:28:00 07/01/2016 21:15:00 DIS Outpatient IVANA PEREZ DO [facility] WSo ABD PAIN [id number] 05/12/2016 16:23:00 05/12/2016 18:18:00 DIS Outpatient IVANA PEREZ DO [facility] WSo CRAMPING [id number] 04/08/2016 14:35:00 04/08/2016 23:59:59 CLS Outpatient ALICIA MARTIN MD [facility] RAD LT FOOT PAIN [id number] 04/06/2016 21:15:00 04/06/2016 22:20:00 DIS Outpatient BERKLEY RODRÍGUEZ DO [facility] UTI SYMPTOMS, 21 WEEKS PREG [id number] 01/01/2016 13:21:00 01/01/2016 23:59:59 CLS Outpatient GADIEL KELLY MD [facility] RAD DATING [id number] 01/14/2015 16:16:00 01/14/2015 17:20:00 DIS Emergency CALI FABIAN DO [facility] ER SUTURE REMOVAL [id number] 01/04/2015 16:15:00 01/04/2015 19:42:00 DIS Emergency SANDER RUSSELL [facility] ER LFT HAND LACERATION [id number] 12/29/2014 19:34:00 12/29/2014 20:13:00 DIS Emergency SARAH MANJARREZ APRN [facility] ER POSS INCISION INFECTION [id number] 11/24/2014 06:56:00 11/26/2014 14:20:00 DIS Inpatient ASHLEY CALL MD [facility] LDRP LABOR AUGMENTATION [id number] 11/20/2014 19:44:00 11/21/2014 14:49:00 DIS Inpatient ASHLEY CALL MD [facility] LDRP INDUCTION [id number] 11/16/2014 20:25:00 11/17/2014 09:32:00 DIS Inpatient ASHLEY CALL MD [facility] LDRP BACK PAIN [id number] 11/12/2014 10:07:00 11/12/2014 23:59:59 CLS Outpatient ASHLEY CALL MD [facility] RAD POSITION AMNIOTIC FLUID [id number] 10/31/2014 13:58:00 10/31/2014 15:30:00 DIS Outpatient ASHLEY CALL MD [facility] WSo LEAKING FLUID [id number] 09/29/2014 19:57:00 09/29/2014 22:12:00 DIS Outpatient ASHLEY CALL MD [facility] WSo PELVIC PAIN [id number] 09/02/2014 12:35:00 09/02/2014 23:59:59 CLS Outpatient ASHLEY CALL MD [facility] RAD DATING [id number] 06/10/2014 09:57:00 06/10/2014 10:53:00 DIS Emergency DEEPTHI GARCIA MD [facility] ER ABD CRAMPING 16 WKS PREG [id number] 04/04/2014 13:43:00 04/04/2014 23:59:59 CLS Outpatient ASHLEY CALL MD [facility] RAD SIZE,DATE, SURVEY [id number] 08/10/2013 07:57:00 09/26/2013 15:49:[address] DPM [facility] REHAB RT PLANTAR FACCIITIS [id number] 04/06/2013 10:53:00 04/06/2013 23:59:59 CLS Outpatient ASHLEY CALL MD [facility] RAD FOOT PAIN [id number] 11/08/2012 17:54:00 11/08/2012 18:52:00 DIS Emergency CAROL BRISENO MD [facility] ER ABCESS L BREAST [id number] 10/23/2012 20:04:00 10/23/2012 20:46:00 DIS Emergency CAROL BRISENO MD [facility] ER BILAT FOOT PAIN [id number] 05/03/2017 23:28:00 Document Registration [id number] 06/26/2014 09:54:00 Document Registration [id number] 03/23/2011 08:31:00 Document Registration [id number] 03/17/2011 14:34:00 Document Registration [id number] 10/14/2010 19:47:00 Document Registration
== END 2017-05-03 23:53 | disposition home or self-care (01) ==
LOC: EDUNIT# 21:54 → ER 21:57
DX: N64.4 Mastodynia (principal); F17.210 Nicotine dependence, cigarettes, uncomplicated; Z87.59 Personal history of other complications of pregnancy, childbirth and the puerperium; Z87.448 Personal history of other diseases of urinary system; Z82.49 Family history of ischemic heart disease and other diseases of the circulatory system
CPT/HCPCS: 84703; 99282

== ENCOUNTER 2017-12-20 16:17 | Outpatient (RCR) | payer OTHER, MEDICAID ==
[~2017-12-20 16:17] MED LIST changes: -AMLO2.5T; +AMLO2.5T3
== END 2018-01-11 11:40 | disposition home or self-care (01) ==
PROVIDERS: ATTEND Orthopaedic Surgery
DX: S63.641D Sprain of metacarpophalangeal joint of right thumb, subsequent encounter (principal); Y04.0XXD Assault by unarmed brawl or fight, subsequent encounter

== ENCOUNTER 2018-06-19 20:10 | Emergency (ER) | payer OTHER, MEDICAID ==
[~2018-06-19] VITALS: Ht 167.6 cm; Wt 86.2 kg
[~2018-06-19 20:10] MED LIST changes: -AMLO2.5T3; +AMLO2.5T4
--- OUTSIDE RECORDS SUMMARY | 2018-06-19 20:17 | XMS REPORT ---
Author Author ANAID PANIAGUA [facility] WALK IN [facility] Address [address] [place] [address] Care Team Providers Care Wind Farm Support Specialist Name Role Phone ANAID PANIAGUA Unavailable PROBLEMS Type Condition ICD9-CM Code [id number] Code Onset Dates Condition Status SNOMED Code Problem Mood disorder F39 Active 76051227 Problem Tarsal tunnel syndrome of right side G57.51 Active 10619597 Problem Tendonitis M77.9 Active 50493483 Problem Plantar fasciitis, bilateral M72.2 Active 471408713 ALLERGIES No Known Allergies ENCOUNTERS Encounter Location Date Diagnosis [facility] WALK IN [facility] [address] [address] Oct, Dysuria R30.0 and Acute cystitis without hematuria N30.00 [facility] [address] [address] August, Plantar fasciitis, bilateral M72.2 [facility] [address] [address] August, Plantar fasciitis, bilateral M72.2 [facility] IN [facility] [address] [place] [id number] [place] [address] August, Acute cystitis without hematuria N30.00 and Dysuria R30.0 [facility] [id number] [place] [address] August, [facility] [address] [address] Jul, Right hand pain M79.641 and Encounter for immunization Z23 [facility] WALK IN [facility] [address] [address] Jul, Right hand pain M79.641 and Encounter for immunization Z23 [facility] [address] [address] Jul, Mood disorder F39 ; Tarsal tunnel syndrome of right side G57.51 and Plantar fasciitis of left foot M72.2 [facility] [address] [address] Jul, Abscess of right breast N61.1 [facility] [address] [address] Jun, [facility] [address] [address] Jun, Plantar fasciitis, bilateral M72.2 [facility] [address] [address] Apr, Plantar fasciitis, bilateral M72.2 and Tendonitis M77.9 [facility] [address] [address] Apr, Plantar fasciitis, bilateral M72.2 [facility] [address] [address] Apr, [facility] [address] [address] Mar, Plantar fasciitis, bilateral M72.2 [facility] [address] [address] Mar, Plantar fasciitis, bilateral M72.2 [facility] [id number] [place] [address] Mar, Pain of right breast N64.4 [facility] [id number] [place] [address] Feb, Plantar fasciitis, bilateral M72.2 [facility] [address] [address] Feb, Posterior tibial tendonitis of right leg M76.821 [facility] [address] [id number] [place] [address] Jan, Plantar fasciitis, bilateral M72.2 [facility] [address] [facility] [id number] [address] Dec, Plantar fasciitis, bilateral M72.2 [facility] [address] [facility] [id number] [place] [address] Nov, Plantar fasciitis, bilateral M72.2 and Tendonitis M77.9 [facility] [id number] [place] [address] Nov, [facility] [id number] [place] [address] Nov, [facility] [id number] [place] [address] Nov, [facility] [id number] [place] [address]- [address] Nov, [facility] [id number] [place] [address] Nov, [facility] [id number] [place] [address] Oct, [facility] [id number] [place] [address] Oct, [facility] [address] [id number] [address] Sep, Plantar fasciitis, bilateral M72.2 and Tendonitis M77.9 [facility] [address] [facility] [id number] [place] [address] August, Plantar fasciitis, bilateral M72.2 [facility] [address] [id number] [address] August, Plantar fasciitis, bilateral M72.2 and Screening cholesterol level Z13.220 [facility] WALK IN [place] [id number] [place] [address] Jun, Other viral agents as the cause of diseases classified elsewhere B97.89 and Acute upper respiratory infection, unspecified J06.9 [facility] WALK IN [place] [id number] [place] [address] 16 May, 2016 Bronchitis J40 and Vaginal yeast infection B37.3 [facility] WALK IN [address] [address] Feb, Arm pain, right M79.601 [facility] WALK IN [address] [address] Jan, Tinea corporis B35.[address] [address] Nov, Plantar fasciitis, bilateral M72.2 [facility] WALK IN [place] [id number] [place] [address] August, Bacterial conjunctivitis of left eye H10.9 [facility] WALK IN [place] [id number] [place] [address] August, Viral conjunctivitis of left eye B30.9 [place] [id number] [place] [address] 03 May, 2015 Dental examination Z01.20 [place] [id number] [place] [address] 14 Jul, 2014 [place] [address] [address] Jul, [place] [id number] [place] [address] 14 May, 2013 [place] [id number] [place] [address] May, [place] [address] [id number] [place] [address] 07 Apr, 2013 [facility] [address] [id number] [place] [address] Apr, [facility] [place] [facility] [address] [id number] [place] [address] Mar, [facility] [address] [id number] [place] [address] Mar, [facility] [place] [facility] [address] [id number] [place] [address] Oct, [facility] [address] [id number] [place] [address] August, [facility] [address] [id number] [place] [address] August, [facility] [address] [id number] [place] [address] August, [facility] [address] [id number] [place] [address] August, [facility] [address] [id number] [place] [address] August, [facility] [address] [id number] [place] [address] Sep, [facility] [address] [id number] [place] [address] August, [facility] [address] [id number] [place] [address]- [address] Jun, [facility] [place] [facility] [address] [id number] [place] [address] Feb, [facility] [place] [facility] [address] [id number] [place] [address] Jan, [facility] [place] [facility] [address] [id number] [place] [address] May, [facility] [address] [facility] [id number], [place] [address] Mar, [facility] [address] [facility] [id number] [address] Mar, [facility] [address] [facility] [id number], [place] [address] Mar, [facility] [address] [facility] [id number], [place] [address] Mar, [facility] [address] [facility] [id number] [address] Mar, IMMUNIZATIONS No Known Immunizations SOCIAL HISTORY Never Assessed REASON FOR VISIT uti Pt states she has pain with urination for several days [employer] PLAN OF CARE Activity Details Follow Up prn Reason: VITAL SIGNS Height 67 in 2017-08-30 Weight 233.6 lbs 2017-08-30 Temperature 97.6 degrees Fahrenheit 2017-08-30 Heart Rate 80 bpm 2017-08-30 Respiratory Rate 18 2017-08-30 BMI 36.58 kg/m2 2017-08-30 Blood pressure systolic 112 mmHg 2017-08-30 Blood pressure diastolic 62 mmHg 2017-08-30 MEDICATIONS Medication Instructions Dosage Frequency Start Date End Date Duration Status Chlorzoxazone 500 mg Orally 2 times a day 1 tablet 12h 12 Jul, 2017Sep 30 day(s) Active Macrodantin 100 MG Orally BID 1 capsule with food or milk 12h 5 days Active Cymbalta 30 MG Orally Once a day 1 capsule 24h Jul, 07 days Active Cymbalta 60 mg Orally Once a day 1 capsule 24h Jul, 30 day(s) Active RESULTS No Results PROCEDURES Procedure Date Ordered Result Body Site URINE CULTURE/COLONY COUNT August 30, 2017 URINALYSIS, AUTO, W/O SCOPE August 30, 2017 INSTRUCTIONS MEDICATIONS ADMINISTERED No Known Medications MEDICAL (GENERAL) HISTORY Type Description Date Medical History plantar fasc Medical History gestational diabetes Surgical History Cyst Removal Surgical History Foot Surgery 2014 Surgical History c-sectionsx 2 2016 Hospitalization History Surgery/childbirth
--- OUTSIDE RECORDS SUMMARY | 2018-06-19 20:17 | XMS REPORT ---
Author Author CALI STEVENS Organization [facility] Address [address] [place] [address] Care Team Providers Care Voucher Clerk Name Role Phone CALI STEVENS Unavailable PROBLEMS Type Condition ICD9-CM Code [id number] Code Onset Dates Condition Status SNOMED Code Problem Mood disorder F39 Active 35234208 Problem Tarsal tunnel syndrome of right side G57.51 Active 21101874 Problem Tendonitis M77.9 Active 90671949 Problem Plantar fasciitis, bilateral M72.2 Active 874865219 ALLERGIES No Known Allergies ENCOUNTERS Encounter Location Date Diagnosis [facility] [id number] [place] [address]277 -7169 Oct, Dysuria R30.0 and Acute cystitis without hematuria N30.00 [facility] [id number] [place] [address] 24716- 0322 August, Plantar fasciitis, bilateral M72.2 [facility] [id number] [place] [address] 49031- 2622 August, Plantar fasciitis, bilateral M72.2 [facility] [id number] [place] [address] 70544 -2252 August, Acute cystitis without hematuria N30.00 and Dysuria R30.0 [facility] [id number] [place] [address] 84646- 9384 August, [facility] [address] 13048- [address]32 Jul, Right hand pain M79.641 and Encounter for immunization Z23 [facility] [id number] [place] [address] 54333 -8303 Jul, Right hand pain M79.641 and Encounter for immunization Z23 [facility] [id number] [place] [address] 34135- 8160 Jul, Mood disorder F39 ; Tarsal tunnel syndrome of right side G57.51 and Plantar fasciitis of left foot M72.2 [facility] [id number] [place] [address] 66750 -5741 Jul, Abscess of right breast N61.1 [facility] [address] 01107- 1614 Jun, [facility] [address] 24637- 6413 Jun, Plantar fasciitis, bilateral M72.2 [facility] [id number] [place] [address] 19801- 2022 Apr, Plantar fasciitis, bilateral M72.2 and Tendonitis M77.9 [place] [address] 79270- 4903 Apr, Plantar fasciitis, bilateral M72.2 [facility] [address] 56682- 8265 Apr, [facility] [id number] [place] [address] 00900- 1649 Mar, Plantar fasciitis, bilateral M72.2 [facility] [id number] [place] [address] 21231- 4993 Mar, Plantar fasciitis, bilateral M72.2 [facility] [id number] [place] [address] 67788 -4767 Mar, Pain of right breast N64.4 [facility] [address] 66274- 7258 Feb, Plantar fasciitis, bilateral M72.2 [facility] [id number] [place] [address] 93836- 4909 Feb, Posterior tibial tendonitis of right leg M76.821 [facility] [address] [id number] [address] 6[address] Jan, Plantar fasciitis, bilateral M72.2 [facility] [id number] [place] [address] 16637- 1679 Dec, Plantar fasciitis, bilateral M72.2 [facility] [id number] [place] [address] 48355- 7330 Nov, Plantar fasciitis, bilateral M72.2 and Tendonitis M77.9 [facility] [address] [address] 0270 Nov, [facility] [id number] [place] [address] 09364- 2892 Nov, [facility] [id number] [place] [address] 41533- 4409 Nov, [facility] [id number] [place] [address] 07224- 3015 Nov, [facility] [id number] [place] [address] 17575- 6505 Nov, [facility] [id number] [place] [address] 14192- 9086 Oct, [facility] [address] [address] 5701 Oct, [facility] [id number] [place] [address] 66413- 2392 Sep, Plantar fasciitis, bilateral M72.2 and Tendonitis M77.9 [facility] [id number] [place] [address] 05442- 0658 August, Plantar fasciitis, bilateral M72.2 [facility] [address] [address] 7331 August, Plantar fasciitis, bilateral M72.2 and Screening cholesterol level Z13.220 [facility] [id number] [place] [address] 00871 -3490 Jun, Other viral agents as the cause of diseases classified elsewhere B97.89 and Acute upper respiratory infection, unspecified J06.9 [facility] [place] [id number] [place] [address] 11322 -5314 16 May, 2016 Bronchitis J40 and Vaginal yeast infection B37.3 [facility] [address] 95272 -1270 Feb, Arm pain, right M79.601 [facility] [address] 41098 -2952 Jan, Tinea corporis B35.[address] 38321- 5437 Nov, Plantar fasciitis, bilateral M72.2 [facility] [address] 06492 -5966 August, Bacterial conjunctivitis of left eye H10.9 [facility] [address] 79681 -4414 August, Viral conjunctivitis of left eye B30.9 [place] [id number] [place] [address] 92290- 6445 03 May, 2015 Dental examination Z01.20 [place] [address] 14193- 3572 14 Jul, 2014 [place] [address] 31800- 5719 Jul, [place] [address] 53975- 4038 14 May, 2013 [place] [id number] [place] [address] 15978- 5092 May, [place] [address] 71969- 2683 Apr, [facility] [address] [id number] [place] [address]- 2943 Apr, [facility] [address] [id number] [place] [address]- 7069 Mar, [facility] [address] [id number] [place] [address]- 0206 Mar, [facility] [address] [id number] [place] [address]- 5172 Oct, [facility] [address] [id number] [place] [address]- 0561 August, [facility] [address] [id number] [place] [address]- 8811 August, [facility] [address] [id number] [place] [address]- 5799 August, [facility] [address] [id number] [place] [address]- 1623 August, [facility] [address] [id number] [place] [address]- 9632 August, [facility] [address] [id number] [place] [address]- 5855 Sep, [facility] [address] [id number] [place] [address]- 0217 August, [facility] [place] [facility] [address] [id number] [place] [address]- 9961 Jun, [facility] [place] [facility] [address] [id number] [place] [address]- 3451 Feb, [facility] [place] [facility] [address] [id number] [place] [address]- 1399 Jan, [facility] [place] [facility] [address] [id number] [place] [address]- 5880 May, [facility] [place] [facility] [address] [facility] [id number] [place] [address]- 1682 Mar, [facility] [address] [facility] [id number] 1292 Mar, [facility] [address] [facility] [id number] [address]- 7634 Mar, [facility] [address] [facility] [id number] [place] 6207 Mar, [facility] [address] [facility] [id number] [place] [address]139 Mar, IMMUNIZATIONS No Known Immunizations SOCIAL HISTORY Never Assessed REASON FOR VISIT Pain management (chronic), pt states pain has increased due to new employment, on feet all day - Reginald Strong MA PLAN OF CARE VITAL SIGNS Height 67 in 2017-09-01 Weight 228.6 lbs 2017-09-01 Temperature 98.8 degrees Fahrenheit 2017-09-01 Heart Rate 78 bpm 2017-09-01 Respiratory Rate 18 2017-09-01 BMI 35.8 kg/m2 2017-09-01 Blood pressure systolic 136 mmHg 2017-09-01 Blood pressure diastolic 90 mmHg 2017-09-01 MEDICATIONS Medication Instructions Dosage Frequency Start Date End Date Duration Status Feldene 20 mg Orally Once a day 1 capsule with food 24h August,Dec 30 day(s) Active Macrodantin 100 MG Orally BID 1 capsule with food or milk 12h 5 days Active Cymbalta 60 mg Orally Once a day 1 capsule 24h Jul, 30 day(s) Active Chlorzoxazone 500 mg Orally 2 times a day 1 tablet 12h 12 Jul, 2017Sep 30 day(s) Active RESULTS No Results PROCEDURES No Known procedures INSTRUCTIONS MEDICATIONS ADMINISTERED No Known Medications MEDICAL (GENERAL) HISTORY Type Description Date Medical History plantar fasc Medical History gestational diabetes Surgical History Cyst Removal Surgical History Foot Surgery 2014 Surgical History c-sectionsx 2 2016 Hospitalization History Surgery/childbirth
--- OUTSIDE RECORDS SUMMARY | 2018-06-19 20:17 | XMS REPORT ---
Author Author CALI STEVENS Organization [facility] Address [address] [place] [address] Care Team Providers Care Service Station Helper Name Role Phone CALI STEVENS Unavailable PROBLEMS Type Condition ICD9-CM Code FPU85-HS Code Onset Dates Condition Status SNOMED Code Problem Mood disorder F39 Active 21576558 Problem Tarsal tunnel syndrome of right side G57.51 Active 12523001 Problem Tendonitis M77.9 Active 03140836 Problem Plantar fasciitis, bilateral M72.2 Active [id number] ALLERGIES No Information ENCOUNTERS Encounter Location Date Diagnosis [facility] [id number] [place] [address] 39579 -9144 Oct, Dysuria R30.0 and Acute cystitis without hematuria N30.00 [facility] [id number] [place] [address] 00202- 7055 August, Plantar fasciitis, bilateral M72.2 [facility] [id number] [place] [address] 87386- 2967 August, Plantar fasciitis, bilateral M72.2 [facility] [id number] [place] [address] 56703 -7804 August, Acute cystitis without hematuria N30.[address] [facility] [id number] [place] [address] 36187- 3573 August, [facility] [address] [address]- 2430 Jul, Right hand pain M79.641 and Encounter for immunization Z23 [facility] [id number] [place] [address] 03997 -9661 Jul, Right hand pain M79.641 and Encounter for immunization Z23 [facility] [id number] [place] [address] 48631- 5272 Jul, Mood disorder F39 ; Tarsal tunnel syndrome of right side G57.51 and Plantar fasciitis of left foot M72.2 [facility] [id number] [place] [address] 59015 -0201 Jul, Abscess of right breast N61.1 [facility] [address] 84124- 6402 Jun, [facility] [address] 75404- 5616 Jun, Plantar fasciitis, bilateral M72.2 [facility] [id number] [place] [address] 69296- 6698 Apr, Plantar fasciitis, bilateral M72.[address] [facility] [address] 12729- 7930 Apr, Plantar fasciitis, bilateral M72.2 [facility] [id number] [place] [address] 15783- 6769 Apr, [facility] [id number] [place] [address] 72582- 8224 Mar, Plantar fasciitis, bilateral M72.2 [facility] [id number] [place] [address] 59604- 5273 Mar, Plantar fasciitis, bilateral M72.2 [facility] [id number] [place] [address] 35537 -7713 Mar, Pain of right breast N64.4 [facility] [address] 59220- 8357 Feb, Plantar fasciitis, bilateral M72.2 [facility] [id number] [place] [address] 81013- 1687 Feb, Posterior tibial tendonitis of right leg M76.821 [facility] [address] [id number] [address]- 0315 Jan, Plantar fasciitis, bilateral M72.2 [facility] [id number] [place] [address] 25705- 9641 Dec, Plantar fasciitis, bilateral M72.2 [facility] [id number] [place] [address] 43219- 7902 Nov, Plantar fasciitis, bilateral M72.[address] [facility] [address] [id number] [address]- 2649 Nov, [facility] [id number] [place] [address] 05764- 4801 Nov, [facility] [id number] [place] [address] 33307- 3085 Nov, [facility] [id number] [place] [address] 30224- 0303 Nov, [facility] [id number] [place] [address] 31289- 6694 Nov, [facility] [id number] [place] [address] 54507- 2920 Oct, [facility] [address] [place] [address] 03544- 7075 Oct, [facility] [id number] [place] [address] 97971- 5043 Sep, Plantar fasciitis, bilateral M72.[address] [facility] [id number] [place] [address] 34517- 9387 August, Plantar fasciitis, bilateral M72.2 [facility] [id number] [place] [address] 46714- 9423 August, Plantar fasciitis, bilateral M72.2 and Screening cholesterol level Z13.220 [facility] [id number] [place] [address] 51670 -3995 Jun, Other viral agents as the cause of diseases classified elsewhere B97.89 and Acute upper respiratory infection, unspecified J06.9 [facility] [place] [id number] [place] [address] 32908 -5271 16 May, 2016 Bronchitis J40 and Vaginal yeast infection B37.3 [facility] [address] 44404 -4807 Feb, Arm pain, right M79.601 [facility] [address] 53312 -4270 Jan, Tinea corporis B35.[address] 57784- 7195 Nov, Plantar fasciitis, bilateral M72.2 [facility] [address] 97630 -1661 August, Bacterial conjunctivitis of left eye H10.9 [facility] [address] 78864 -3546 August, Viral conjunctivitis of left eye B30.9 [place] [address] 84175- 8932 03 May, 2015 Dental examination Z01.20 [place] [address] 39016- 8403 Jul, [place] [address] 80258- 4779 Jul, [place] [address] 44650- 2515 14 May, 2013 [place] [address] 66518- 5655 May, [place] [address] 28632- 4321 Apr, [facility] [address] [id number] [place] [address]- 7820 Apr, [facility] [address] [id number] [place] [address]- 2319 Mar, [facility] [address] [id number] [place] [address]- 0541 Mar, [facility] [place] [facility] [address] [id number] [place] [address]- 0877 Oct, [facility] [address] [id number] [place] [address]- 0599 August, [facility] [address] [id number] [place] [address]- 8521 August, [facility] [address] [id number] [place] [address]- 4072 August, [facility] [address] [id number] [place] [address]- 2962 August, [facility] [address] [id number] [place] [address]- 4483 August, [facility] [address] [id number] [place] [address]- 6444 Sep, [facility] [address] [id number] [place] [address]- 3191 August, [facility] [place] [facility] [address] [id number] [place] [address]- 3013 Jun, [facility] [place] [facility] [address] [id number] [place] [address]- 2695 Feb, [facility] [place] [facility] [address] [id number] [place] [address]- 5067 Jan, [facility] [place] [facility] [address] [id number] [place] [address]- 0781 May, [facility] [place] [facility] [address] [facility] [id number] [place] [address]- 5446 Mar, [facility] [address] [id number] [address]- 0894 Mar, [facility] [address] [id number] [address]- 9339 Mar, [facility] [address] [id number] [address]- 4697 Mar, [facility] [address] [facility] [id number] [address]- 1990 Mar, IMMUNIZATIONS No Known Immunizations SOCIAL HISTORY Never Assessed REASON FOR VISIT Prior Authorization Request PLAN OF CARE VITAL SIGNS MEDICATIONS Medication Instructions Dosage Frequency Start Date End Date Duration Status Mobic 7.5 MG Orally twice a day 1 tablet 12h August, 30 day(s) Active RESULTS No Results PROCEDURES No Known procedures INSTRUCTIONS MEDICATIONS ADMINISTERED No Known Medications MEDICAL (GENERAL) HISTORY Type Description Date Medical History plantar fasc Medical History gestational diabetes Surgical History Cyst Removal Surgical History Foot Surgery 2014 Surgical History c-sectionsx 2 2014, 2016 Hospitalization History Surgery/childbirth
--- OUTSIDE RECORDS SUMMARY | 2018-06-19 20:17 | XMS REPORT ---
Author Author ANAID PANIAGUA [facility] WALK IN [facility] Address [address] [place] [address] Care Team Providers Care Alodize Machine Helper Name Role Phone ANAID PANIAGUA Unavailable PROBLEMS Type Condition ICD9-CM Code OEE44-IQ Code Onset Dates Condition Status SNOMED Code Problem Mood disorder F39 Active 87380031 Problem Tarsal tunnel syndrome of right side G57.51 Active 12904618 Problem Tendonitis M77.9 Active 30653464 Problem Plantar fasciitis, bilateral M72.2 Active 168820021 ALLERGIES No Known Allergies ENCOUNTERS Encounter Location Date Diagnosis [facility] WALK IN [facility] [address] [address] Oct, Dysuria R30.0 and Acute cystitis without hematuria N30.00 [facility] [address] [address] August, Plantar fasciitis, bilateral M72.2 [facility] [address] [address] August, Plantar fasciitis, bilateral M72.2 [facility] SAULT IN [facility] [id number] [place] [address] August, Acute cystitis without hematuria N30.00 and Dysuria R30.0 [facility] [id number] [place] [address] 16076- 9643 August, [facility] [address] [address] Jul, Right hand pain M79.641 and Encounter for immunization Z23 [facility] WALK IN [facility] [address] [address] Jul, Right hand pain M79.641 and Encounter for immunization Z23 [facility] [address] 6[address] 268[address] Jul, Mood disorder F39 ; Tarsal tunnel syndrome of right side G57.51 and Plantar fasciitis of left foot M72.2 [facility] [address] [address] Jul, Abscess of right breast N61.1 [facility] [address] 365[address]- [address] Jun, [facility] [address] [address]- [address] Jun, Plantar fasciitis, bilateral M72.2 [facility] [address] 85454- 5118 Apr, Plantar fasciitis, bilateral M72.2 and Tendonitis M77.9 [facility] [address] 12157- 3437 Apr, Plantar fasciitis, bilateral M72.2 [facility] [address] 8[address]- 30[address] Apr, [facility] [address] [address]- [address]67 Mar, Plantar fasciitis, bilateral M72.2 [facility] [address] 42396- 6[address] Mar, Plantar fasciitis, bilateral M72.2 [facility] [id number] [place] [address]1384 Mar, Pain of right breast N64.4 [facility] [id number] [place] [address] 30489- 9626 Feb, Plantar fasciitis, bilateral M72.2 [facility] [address] [address]00- 2424 Feb, Posterior tibial tendonitis of right leg M76.821 [facility] [id number] [place] [address] 9[address]30- 4517 Jan, Plantar fasciitis, bilateral M72.2 [facility] [address] [facility] [id number] [address] Dec, Plantar fasciitis, bilateral M72.2 [facility] [address] [facility] [id number] [place] [address] 55468- 7089 Nov, Plantar fasciitis, bilateral M72.2 and Tendonitis M77.9 [facility] [id number] [place] [address] 10706- 9230 Nov, [facility] [id number] [place] [address] 27709- 6678 Nov, [facility] [id number] [place] [address] 82915- 5347 Nov, [facility] [id number] [place] [address] 38356- 2606 Nov, [facility] [id number] [place] [address] 87912- 3077 Nov, [facility] [id number] [place] [address] 41888- 2229 Oct, [facility] [id number] [place] [address] 46849- 3687 Oct, [facility] [address] [id number] [address] 08[address] Sep, Plantar fasciitis, bilateral M72.2 and Tendonitis M77.9 [facility] [address] [facility] [id number] [place] [address] 03365- 9270 August, Plantar fasciitis, bilateral M72.2 [facility] [address] [id number] [address] 1812 August, Plantar fasciitis, bilateral M72.2 and Screening cholesterol level Z13.220 [facility] WALK IN [place] [id number] [place] [address]314 -1274 Jun, Other viral agents as the cause of diseases classified elsewhere B97.89 and Acute upper respiratory infection, unspecified J06.9 [facility] WALK IN [place] [id number] [place] [address] 92054 -2345 16 May, 2016 Bronchitis J40 and Vaginal yeast infection B37.3 [facility] WALK IN [address] [address] Feb, Arm pain, right M79.601 [facility] WALK IN [address] [address] Jan, Tinea corporis B35.[address] [address]- 65[address] Nov, Plantar fasciitis, bilateral M72.2 [facility] WALK IN [place] [id number] [place] [address] 89223 -5142 August, Bacterial conjunctivitis of left eye H10.9 [facility] WALK IN [place] [id number] [place] [address] 24299 -8357 August, Viral conjunctivitis of left eye B30.9 [place] [id number] [place] [address] 56221- 2300 03 May, 2015 Dental examination Z01.20 [place] [id number] [place] [address] 25480- 2482 14 Jul, 2014 [place] [address] 13763- 3452 Jul, [place] [id number] [place] [address] 46190- 3540 14 May, 2013 [place] [id number] [place] [address] 54909- 7500 May, [place] [address] [id number] [place] [address]- 1205 07 Apr, 2013 [facility] [address] [id number] [place] [address]- 6151 Apr, [facility] [place] [facility] [address] [id number] [place] [address]- 8871 Mar, [facility] [address] [id number] [place] [address]- 1391 Mar, [facility] [place] [facility] [address] [id number] [place] [address]- 6923 Oct, [facility] [address] [id number] [place] [address]- 2622 August, [facility] [address] [id number] [place] [address]- 1215 August, [facility] [address] [id number] [place] [address]- 8331 August, [facility] [address] [id number] [place] [address]- 1786 August, [facility] [address] [id number] [place] [address]- 9550 August, [facility] [address] [id number] [place] [address]- 2007 Sep, [facility] [address] [id number] [place] [address]- 9885 August, [facility] [address] [id number] [place] [address]- 7257 Jun, [facility] [place] [facility] [address] [id number] [place] [address]- 3543 Feb, [facility] [place] [facility] [address] [id number] [place] [address]- 3346 Jan, [facility] [place] [facility] [address] [id number] [place] [address]- 0781 May, [facility] [address] [facility] [id number], [place] [address]- 2546 Mar, [facility] [address] [facility] [id number], [place] [address]- 2546 Mar, [facility] [address] [facility] [id number], [place] [address]- 2546 Mar, [facility] [address] [id number], [place] [address]- 2546 Mar, [facility] [address] [facility] [id number], [place] [address]- 2546 Mar, IMMUNIZATIONS No Known Immunizations SOCIAL HISTORY Never Assessed REASON FOR VISIT dysurai after voiding. been like this for 3-4 days. kbullardrn, last menstural period...unknown because [facility] has the [facility] PLAN OF CARE Activity Details Follow Up if not improving or regular follow up with pcp Reason: VITAL SIGNS Height 67 in 2017-11-03 Weight 228.8 lbs 2017-11-03 Temperature 98.0 degrees Fahrenheit 2017-11-03 Heart Rate 76 bpm 2017-11-03 Respiratory Rate 20 2017-11-03 BMI 35.83 kg/m2 2017-11-03 Blood pressure systolic 128 mmHg 2017-11-03 Blood pressure diastolic 78 mmHg 2017-11-03 MEDICATIONS Medication Instructions Dosage Frequency Start Date End Date Duration Status Mirena Active Macrodantin 100 MG Orally BID 1 capsule with food or milk 12h 5 days Active RESULTS No Results PROCEDURES Procedure Date Ordered Result Body Site URINALYSIS, AUTO, W/O SCOPE November 03, 2017 LAB NOT BILLED BY [facility] November 03, 2017 INSTRUCTIONS MEDICATIONS ADMINISTERED No Known Medications MEDICAL (GENERAL) HISTORY Type Description Date Medical History plantar fasc Medical History gestational diabetes Surgical History Cyst Removal Surgical History Foot Surgery 2014 Surgical History c-sectionsx 2 2016 Hospitalization History Surgery/childbirth
--- OUTSIDE RECORDS SUMMARY | 2018-06-19 20:17 | XMS REPORT ---
Author Author ANAID PANIAGUA [facility] WALK IN [facility] Address [address] [place] [address] Care Team Providers Care Aircraft Maintenance Manager Name Role Phone ANAID PANIAGUA Unavailable PROBLEMS Type Condition ICD9-CM Code UIP06-VZ Code Onset Dates Condition Status SNOMED Code Problem Mood disorder F39 Active 38798054 Problem Tarsal tunnel syndrome of right side G57.51 Active 61737695 Problem Tendonitis M77.9 Active 32573230 Problem Plantar fasciitis, bilateral M72.2 Active 838737866 ALLERGIES No Information ENCOUNTERS Encounter Location Date Diagnosis [facility] WALK IN CARE [address] [address] Oct, Dysuria R30.0 and Acute cystitis without hematuria N30.00 [facility] [address] [address]170 August, Plantar fasciitis, bilateral M72.2 [facility] [address] 39908- [address]997 August, Plantar fasciitis, bilateral M72.2 [facility] WALK IN [facility] [address] [address] August, Acute cystitis without hematuria N30.00 and Dysuria R30.0 [facility] [address] 38902- 3642 August, [facility] [address] 24[address]- 0052 Jul, Right hand pain M79.641 and Encounter for immunization Z23 [facility] WALK IN CARE [address] 55[address]94 Jul, Right hand pain M79.641 and Encounter for immunization Z23 [facility] [address] 39804- 3561 Jul, Mood disorder F39 ; Tarsal tunnel syndrome of right side G57.51 and Plantar fasciitis of left foot M72.2 [facility] [address] 65[address] -7635 Jul, Abscess of right breast N61.1 [facility] [address] 83791- 5883 Jun, [place] [address] [address]807- 9238 Jun, Plantar fasciitis, bilateral M72.2 [facility] [address] 26887- 8134 Apr, Plantar fasciitis, bilateral M72.2 and Tendonitis M77.9 [facility] [address] 84295- 5346 Apr, Plantar fasciitis, bilateral M72.2 [facility] [address] 47[address]- 3870 Apr, [facility] [address] 18741- 4317 Mar, Plantar fasciitis, bilateral M72.2 [facility] [id number] [place] [address]45- 1937 Mar, Plantar fasciitis, bilateral M72.2 [facility] [id number] [place] [address] 72857 -8612 Mar, Pain of right breast N64.4 [facility] [id number] [place] [address] 78779- 8884 Feb, Plantar fasciitis, bilateral M72.2 [facility] [address] [address]32- 1623 Feb, Posterior tibial tendonitis of right leg M76.821 [facility] [address] [facility] [id number] [address]- 2064 Jan, Plantar fasciitis, bilateral M72.2 [facility] [address] [id number] [address]- 9716 Dec, Plantar fasciitis, bilateral M72.2 [facility] [address] [id number] [place] [address] 99475- 6230 Nov, Plantar fasciitis, bilateral M72.2 and Tendonitis M77.9 [facility] [address] [id number] [place] [address] 97831- 5950 Nov, [facility] [address] [facility] [id number] [place] [address] 65919- 8070 Nov, [facility] [address] [place] [id number] [place] [address] 14970- 9759 Nov, [facility] [address] [facility] [id number] [place] [address] 76900- 7801 Nov, [facility] [id number] [place] [address] 36548- 9386 Nov, [facility] [address] [facility] [id number], [place] [address]- 5786 Oct, [facility] [address] [id number] [address]- 0193 Oct, [facility] [address] [facility] [id number], [place] [address]- 3644 Sep, Plantar fasciitis, bilateral M72.2 and Tendonitis M77.9 [facility] [address] [facility] [id number] [address]- 1907 August, Plantar fasciitis, bilateral M72.2 [facility] [address] [facility] [id number], [place] [address]- 9196 August, Plantar fasciitis, bilateral M72.2 and Screening cholesterol level Z13.220 [facility] WALK IN [place] [id number] [place] [address] 05307 -7726 Jun, Other viral agents as the cause of diseases classified elsewhere B97.89 and Acute upper respiratory infection, unspecified J06.9 [facility] WALK IN [place] [id number] [place] [address] 31353 -4531 16 May, 2016 Bronchitis J40 and Vaginal yeast infection B37.3 [facility] WALK IN [address] [address] Feb, Arm pain, right M79.601 [facility] WALK IN [address] [address]34 Jan, Tinea corporis B35.[address] [address]- 0531 Nov, Plantar fasciitis, bilateral M72.2 [facility] WALK IN [place] [id number] [place] [address] 06009 -6794 August, Bacterial conjunctivitis of left eye H10.9 [facility] WALK IN [place] [id number] [place] [address] 37491 -9671 August, Viral conjunctivitis of left eye B30.9 [place] [id number] [place] [address] 74608- 1753 03 May, 2015 Dental examination Z01.20 [place] [address] [place] [id number] [place] [address] 54090- 6407 14 Jul, 2014 [place] [address] 62599- 8376 Jul, [place] [address] 29585- 5457 14 May, 2013 [place] [address] [place] [id number] [place] [address] 57081- 2793 May, [place] [address] [facility] [id number] [place] [address]- 2448 Apr, [facility] [address] [id number] [place] [address]- 0697 Apr, [facility] [address] [id number] [place] [address]- 2320 Mar, [facility] [address] [id number] [place] [address]- 4575 Mar, [facility] [address] [id number] [place] [address]- 5030 Oct, [facility] [address] [id number] [place] [address]- 7268 August, [facility] [address] [id number] [place] [address]- 7932 August, [facility] [address] [id number] [place] [address]- 8922 August, [facility] [address] [id number] [place] [address]- 8634 August, [facility] [address] [id number] [place] [address]- 2597 August, [facility] [address] [id number] [place] [address]- 6013 Sep, [facility] [address] [id number] [place] [address]- 0416 August, [facility] [address] [id number] [place] [address]- 7996 Jun, [facility] [address] [id number] [place] [address]- 0296 Feb, [facility] [address] [id number] [place] [address]- 2546 Jan, [facility] [address] [id number] [place] [address]- 6787 May, [facility] [address] [facility] [id number] [address]- 1504 Mar, [facility] [address] [place] [id number] [address]- 8975 Mar, [facility] [address] [facility] [id number], [place] [address]- 6467 Mar, [facility] [address] [place] [id number], [place] [address]- 8509 Mar, [facility] [address] [facility] [id number], [place] [address]- 1079 Mar, IMMUNIZATIONS No Known Immunizations SOCIAL HISTORY Never Assessed REASON FOR VISIT Xray (walk-in) MHill RT(R) PLAN OF CARE VITAL SIGNS MEDICATIONS No Known Medications RESULTS Name Result Date Reference Range Xray : Hand, Right 3 views (IN HOUSE) 2017-08-22 PROCEDURES Procedure Date Ordered Result Body Site X-RAY EXAM OF HAND August 22, 2017 INSTRUCTIONS MEDICATIONS ADMINISTERED No Known Medications MEDICAL (GENERAL) HISTORY Type Description Date Medical History plantar fasc Medical History gestational diabetes Surgical History Cyst Removal Surgical History Foot Surgery 2014 Surgical History c-sectionsx 2 2014, 2016 Hospitalization History Surgery/childbirth
--- OUTSIDE RECORDS SUMMARY | 2018-06-19 20:17 | XMS REPORT ---
Author Author CALI STEVENS Organization [facility] Address [address] [place] [address] Care Team Providers Care Commercial Attorney Name Role Phone CALI STEVENS Unavailable PROBLEMS Type Condition ICD9-CM Code YDI17-[id number] Code Onset Dates Condition Status SNOMED Code Problem Mood disorder F39 Active 10964296 Problem Tarsal tunnel syndrome of right side G57.51 Active 29753537 Problem Tendonitis M77.9 Active 60655361 Problem Plantar fasciitis, bilateral M72.2 Active 829706428 ALLERGIES No Information ENCOUNTERS Encounter Location Date Diagnosis [facility]ALK IN [facility] [id number] [place] [address]28 -3800 Oct, Dysuria R30.0 and Acute cystitis without hematuria N30.00 [facility] [id number] [place] [address] 40361- 2837 August, Plantar fasciitis, bilateral M72.2 [facility] [id number] [place] [address] 28067- 8296 August, Plantar fasciitis, bilateral M72.2 [facility] IN [facility] [id number] [place] [address] 87759 -5252 August, Acute cystitis without hematuria N30.00 and Dysuria R30.0 [facility] [id number] [place] [address] 61842- 1236 August, [facility] [address] 02913- 2266 Jul, Right hand pain M79.641 and Encounter for immunization Z23 [facility] WALK IN [facility] [id number] [place] [address] 57407 -6327 Jul, Right hand pain M79.641 and Encounter for immunization Z23 [facility] [id number] [place] [address] 80150- 1074 Jul, Mood disorder F39 ; Tarsal tunnel syndrome of right side G57.51 and Plantar fasciitis of left foot M72.2 [facility] [id number] [place] [address] 45277 -1616 Jul, Abscess of right breast N61.1 [facility] [address] 85188- 9194 Jun, [facility] [address] 98968- 9282 Jun, Plantar fasciitis, bilateral M72.2 [facility] [id number] [place] [address] 27356- 1066 Apr, Plantar fasciitis, bilateral M72.2 and Tendonitis M77.9 [facility] [address] 95865- 3745 Apr, Plantar fasciitis, bilateral M72.2 [facility] [id number] [place] [address] 35252- 3588 Apr, [facility] [id number] [place] [address] 39486- 0448 Mar, Plantar fasciitis, bilateral M72.2 [facility] [id number] [place] [address] 88841- 2207 Mar, Plantar fasciitis, bilateral M72.[address] [facility] [id number] [place] [address] 26420 -5052 Mar, Pain of right breast N64.4 [facility] [address] 57789- 6580 Feb, Plantar fasciitis, bilateral M72.2 [facility] [id number] [place] [address] 51506- 8949 Feb, Posterior tibial tendonitis of right leg M76.821 [facility] [address] [id number] [address] 7686 Jan, Plantar fasciitis, bilateral M72.2 [facility] [id number] [place] [address] 49063- 5107 Dec, Plantar fasciitis, bilateral M72.2 [facility] [id number] [place] [address] 69599- 6467 Nov, Plantar fasciitis, bilateral M72.2 and Tendonitis M77.9 [facility] [id number] [address] 9530 Nov, [facility] [id number] [place] [address] 32999- 7751 Nov, [facility] [id number] [place] [address] 79388- 6225 Nov, [facility] [id number] [place] [address] 21792- 8783 Nov, [facility] [id number] [place] [address] 67503- 3681 Nov, [facility] [id number] [place] [address] 33671- 8882 Oct, [facility] [id number] [place] [address] 91765- 8660 Oct, [facility] [id number] [place] [address] 78423- 8090 Sep, Plantar fasciitis, bilateral M72.2 and Tendonitis M77.9 [facility] [id number] [place] [address] 75311- 8362 August, Plantar fasciitis, bilateral M72.2 [facility] [id number] [place] [address] 25577- 0531 August, Plantar fasciitis, bilateral M72.2 and Screening cholesterol level Z13.220 [facility] [id number] [place] [address] 02508 -8194 Jun, Other viral agents as the cause of diseases classified elsewhere B97.89 and Acute upper respiratory infection, unspecified J06.9 [facility] WALK [facility] [place] [address] [id number] [place] [address] 23483 -5626 16 May, 2016 Bronchitis J40 and Vaginal yeast infection B37.3 [facility] WALK IN [address] 74786 -4497 Feb, Arm pain, right M79.601 [facility] IN [address] 42083 -5441 Jan, Tinea corporis B35.[address] 06898- 0145 Nov, Plantar fasciitis, bilateral M72.2 [facility] W[facility] IN [address] 96952 -0988 August, Bacterial conjunctivitis of left eye H10.9 [facility] W[facility] IN [address] 69390 -0197 August, Viral conjunctivitis of left eye B30.9 [place] [address] 91418- 0098 03 May, 2015 Dental examination Z01.20 [place] [address] 16290- 1399 Jul, [place] [address] 71932- 8404 Jul, [place] [address] 19465- 2112 14 May, 2013 [place] [address] 54451- 0238 May, [place] [address] 98905- 2491 Apr, [facility] [address] [id number] [place] [address]- 1209 Apr, [facility] [address] [id number] [place] [address]- 4635 Mar, [facility] [address] [id number] [place] [address]- 9005 Mar, [facility] [place] [facility] [address] [id number] [place] [address]- 7511 Oct, [facility] [address] [id number] [place] [address]- 4329 August, [facility] [address] [id number] [place] [address]- 9924 August, [facility] [address] [id number] [place] [address]- 1666 August, [facility] [address] [id number] [place] [address]- 2285 August, [facility] [address] [id number] [place] [address]- 6620 August, [facility] [address] [id number] [place] [address]- 7754 Sep, [facility] [address] [id number] [place] [address]- 7226 August, [facility] [place] [facility] [address] [id number] [place] [address]- 6795 Jun, [facility] [place] [facility] [address] [id number] [place] [address]- 6410 Feb, [facility] [place] [facility] [address] [id number] [place] [address]- 5994 Jan, [facility] [place] [facility] [address] [id number] [place] [address]- 0564 May, [facility] [place] [facility] [address] [facility] [id number] [place] [address]10 Mar, [facility] [address] [id number] [address]- 1042 Mar, [facility] [address] [id number] [address]- 3520 Mar, [facility] [address] [id number] [address]- 3789 Mar, [facility] [address] [id number] [address]- 3425 Mar, IMMUNIZATIONS No Known Immunizations SOCIAL HISTORY Never Assessed REASON FOR VISIT referral PLAN OF CARE VITAL SIGNS MEDICATIONS No Known Medications RESULTS No Results PROCEDURES No Known procedures INSTRUCTIONS MEDICATIONS ADMINISTERED No Known Medications MEDICAL (GENERAL) HISTORY Type Description Date Medical History plantar fasc Medical History gestational diabetes Surgical History Cyst Removal Surgical History Foot Surgery 2014 Surgical History c-sectionsx 2 2016 Hospitalization History Surgery/childbirth
--- OUTSIDE RECORDS SUMMARY | 2018-06-19 20:18 | XMS REPORT ---
Author Author CALI STEVENS Organization [facility] Address [address] [place] [address] Care Team Providers Care Production Ski Repairer Name Role Phone CALI STEVENS Unavailable PROBLEMS Type Condition ICD9-CM Code OUB52-GG Code Onset Dates Condition Status SNOMED Code Problem Mood disorder F39 Active 19020340 Problem Tarsal tunnel syndrome of right side G57.51 Active 89718785 Problem Tendonitis M77.9 Active 16479209 Problem Plantar fasciitis, bilateral M72.2 Active 816752568 ALLERGIES No Information ENCOUNTERS Encounter Location Date Diagnosis [facility] WALK IN [facility] [id number] [place] [address] 49596 -2769 Oct, Dysuria R30.0 and Acute cystitis without hematuria N30.00 [facility] [id number] [place] [address] 37885- 2170 August, Plantar fasciitis, bilateral M72.2 [facility] [id number] [place] [address] 63586- 1913 August, Plantar fasciitis, bilateral M72.2 [facility] IN [facility] [id number] [place] [address] 29796 -5732 August, Acute cystitis without hematuria N30.00 and Dysuria R30.0 [facility] [id number] [place] [address] 13976- 8980 August, [facility] [address] 96614- 9989 Jul, Right hand pain M79.641 and Encounter for immunization Z23 [facility] WALK IN [facility] [id number] [place] [address] 64982 -7881 Jul, Right hand pain M79.641 and Encounter for immunization Z23 [facility] [id number] [place] [address] 60269- 3532 Jul, Mood disorder F39 ; Tarsal tunnel syndrome of right side G57.51 and Plantar fasciitis of left foot M72.2 [facility] [id number] [place] [address] 54401 -3094 Jul, Abscess of right breast N61.1 [facility] [address] 39819- 2088 Jun, [facility] [address] 94836- 8748 Jun, Plantar fasciitis, bilateral M72.2 [facility] [id number] [place] [address] 56427- 0041 Apr, Plantar fasciitis, bilateral M72.2 and Tendonitis M77.9 [facility] [address] 11678- 2259 Apr, Plantar fasciitis, bilateral M72.2 [facility] [id number] [place] [address] 39500- 6332 Apr, [facility] [id number] [place] [address] 44679- 7527 Mar, Plantar fasciitis, bilateral M72.2 [facility] [id number] [place] [address] 83090- 8890 Mar, Plantar fasciitis, bilateral M72.2 [facility] [id number] [place] [address] 43001 -5656 Mar, Pain of right breast N64.4 [facility] [address] 85084- 0405 Feb, Plantar fasciitis, bilateral M72.2 [facility] [id number] [place] [address] 56358- 4845 Feb, Posterior tibial tendonitis of right leg M76.821 [facility] [address] [id number] [address]- 1136 Jan, Plantar fasciitis, bilateral M72.2 [facility] [id number] [place] [address] 37688- 7029 Dec, Plantar fasciitis, bilateral M72.2 [facility] [id number] [place] [address] 36626- 1816 Nov, Plantar fasciitis, bilateral M72.2 and Tendonitis M77.9 [facility] [address] [id number] [address]- 0835 Nov, [facility] [id number] [place] [address] 62547- 9116 Nov, [facility] [id number] [place] [address] 16541- 1439 Nov, [facility] [id number] [place] [address] 75309- 1322 Nov, [facility] [id number] [place] [address] 35777- 0849 Nov, [facility] [id number] [place] [address] 21272- 4693 Oct, [facility] [id number] [place] [address] 31287- 1094 Oct, [facility] [id number] [place] [address] 51923- 1069 Sep, Plantar fasciitis, bilateral M72.2 and Tendonitis M77.9 [facility] [id number] [place] [address] 73817- 6521 August, Plantar fasciitis, bilateral M72.2 [facility] [id number] [place] [address] 41425- 0204 August, Plantar fasciitis, bilateral M72.2 and Screening cholesterol level Z13.220 [facility] [id number] [place] [address] 67851 -1859 Jun, Other viral agents as the cause of diseases classified elsewhere B97.89 and Acute upper respiratory infection, unspecified J06.9 [facility] WALK IN [place] [id number] [place] [address] 07440 -8345 16 May, 2016 Bronchitis J40 and Vaginal yeast infection B37.3 [facility] WALK IN [address] 71931 -4501 Feb, Arm pain, right M79.601 [facility] WALK IN [address] 73740 -8138 Jan, Tinea corporis B35.[address] 02177- 0798 Nov, Plantar fasciitis, bilateral M72.2 [facility] WALK IN [address] 21689 -1994 August, Bacterial conjunctivitis of left eye H10.9 [facility] WALK IN [address] 99417 -4363 August, Viral conjunctivitis of left eye B30.9 [place] [address] 53846- 2172 03 May, 2015 Dental examination Z01.20 [place] [address] 82519- 9783 Jul, [place] [address] 00977- 1434 Jul, [place] [address] 58238- 7983 14 May, 2013 [place] [address] 56614- 5917 May, [place] [address] 10228- 1687 Apr, [facility] [address] [id number] [place] [address]- 2136 Apr, [facility] [address] [id number] [place] [address]- 5027 Mar, [facility] [address] [id number] [place] [address]- 8960 Mar, [facility] [place] [facility] [address] [id number] [place] [address]- 4974 Oct, [facility] [address] [id number] [place] [address]- 2187 August, [facility] [address] [id number] [place] [address]- 3192 August, [facility] [address] [id number] [place] [address]- 6650 August, [facility] [address] [id number] [place] [address]- 5087 August, [facility] [address] [id number] [place] [address]- 0662 August, [facility] [address] [id number] [place] [address]- 8874 Sep, [facility] [address] [id number] [place] [address]- 9403 August, [facility] [place] [facility] [address] [id number] [place] [address]- 4410 Jun, [facility] [place] [facility] [address] [id number] [place] [address]- 5668 Feb, [facility] [place] [facility] [address] [id number] [place] [address]- 4313 Jan, [facility] [place] [facility] [address] [id number] [place] [address]- 2887 May, [facility] [place] [facility] [address] [facility] [id number] [place] [address]- 6236 Mar, [facility] [address] [id number] [address]- 2416 Mar, [facility] [address] [id number] [address]- 9083 Mar, [facility] [address] [id number] [address]- 6226 Mar, [facility] [address] [facility] [id number] [address]- 8989 Mar, IMMUNIZATIONS No Known Immunizations SOCIAL HISTORY Never Assessed REASON FOR VISIT Medication question PLAN OF CARE VITAL SIGNS MEDICATIONS Medication Instructions Dosage Frequency Start Date End Date Duration Status Tizanidine HCl 4 MG Orally Three times a day 1 tablet as needed 8h Jun, Active RESULTS No Results PROCEDURES No Known procedures INSTRUCTIONS MEDICATIONS ADMINISTERED No Known Medications MEDICAL (GENERAL) HISTORY Type Description Date Medical History plantar fasc Medical History gestational diabetes Surgical History Cyst Removal Surgical History Foot Surgery 2013 Surgical History c-sectionsx 2 2014, 2016 Hospitalization History Surgery/childbirth
--- OUTSIDE RECORDS SUMMARY | 2018-06-19 20:18 | XMS REPORT ---
Author Author ANAID PANIAGUA [facility] Address [address] [place] [address] Care Team Providers Care Research Chemist Name Role Phone ANAID PANIAGUA Unavailable PROBLEMS Type Condition ICD9-CM Code DMA69-SM Code Onset Dates Condition Status SNOMED Code Problem Mood disorder F39 Active 20910860 Problem Tarsal tunnel syndrome of right side G57.51 Active 29774211 Problem Tendonitis M77.9 Active 12291407 Problem Plantar fasciitis, bilateral M72.2 Active 055451020 ALLERGIES No Known Allergies ENCOUNTERS Encounter Location Date Diagnosis [facility] IN [facility] [address] [address] Oct, Dysuria R30.0 and Acute cystitis without hematuria N30.00 [facility] [address] [address] August, Plantar fasciitis, bilateral M72.2 [facility] [address] [address] August, Plantar fasciitis, bilateral M72.2 [facility] [id number] [place] [address] August, Acute cystitis without hematuria N30.00 and Dysuria R30.0 [facility] [id number] [place] [address]283- [address]453 August, [facility] [address] [address] Jul, Right hand pain M79.641 and Encounter for immunization Z23 [facility] IN [facility] [address] [address] Jul, Right hand pain M79.641 and Encounter for immunization Z23 [facility] [address] [address] Jul, Mood disorder F39 ; Tarsal tunnel syndrome of right side G57.51 and Plantar fasciitis of left foot M72.2 [facility] [address] [address] Jul, Abscess of right breast N61.1 [facility] [address] [address] Jun, [facility] [address] [address] Jun, Plantar fasciitis, bilateral M72.2 [facility] [address] [address]7 Apr, Plantar fasciitis, bilateral M72.2 and Tendonitis M77.9 [facility] [address] [address]67 Apr, Plantar fasciitis, bilateral M72.2 [facility] [address] [address] Apr, [facility] [address] [address] Mar, Plantar fasciitis, bilateral M72.2 [facility] [address] 8[address] Mar, Plantar fasciitis, bilateral M72.2 [facility] [id number] [place] [address] Mar, Pain of right breast N64.4 [facility] [id number] [place] [address] 26591- 9744 Feb, Plantar fasciitis, bilateral M72.2 [facility] [address] [address] Feb, Posterior tibial tendonitis of right leg M76.821 [facility] [id number] [place] [address] 03884- 4914 Jan, Plantar fasciitis, bilateral M72.2 [facility] [address] [facility] [id number] [address] Dec, Plantar fasciitis, bilateral M72.2 [facility] [address] [facility] [id number] [place] [address] 79590- 1165 Nov, Plantar fasciitis, bilateral M72.2 and Tendonitis M77.9 [facility] [id number] [place] [address] 10477- 3745 Nov, [facility] [id number] [place] [address] 31759- 6252 Nov, [facility] [id number] [place] [address] 52623- 0117 Nov, [facility] [id number] [place] [address] 19286- 3117 Nov, [facility] [id number] [place] [address] 31962- 4959 Nov, [facility] [id number] [place] [address] 21809- 9264 Oct, [facility] [id number] [place] [address] 20003- 0590 Oct, [facility] [address] [id number] [address] 2915 Sep, Plantar fasciitis, bilateral M72.2 and Tendonitis M77.9 [facility] [address] [facility] [id number] [place] [address] 57672- 2062 August, Plantar fasciitis, bilateral M72.2 [facility] [address] [id number] [address] August, Plantar fasciitis, bilateral M72.2 and Screening cholesterol level Z13.220 [facility] [place] [id number] [place] [address]15 [address]4973 Jun, Other viral agents as the cause of diseases classified elsewhere B97.89 and Acute upper respiratory infection, unspecified J06.9 [facility] IN [place] [id number] [place] [address]39 [address]602 16 May, 2016 Bronchitis J40 and Vaginal yeast infection B37.3 [facility] IN [address] [address] Feb, Arm pain, right M79.601 [facility] IN [address] [address] Jan, Tinea corporis B35.[address] [address]- [address] Nov, Plantar fasciitis, bilateral M72.2 [facility] IN [place] [id number] [place] [address]69 [address]77 August, Bacterial conjunctivitis of left eye H10.9 [facility] IN [place] [id number] [place] [address]13 [address] August, Viral conjunctivitis of left eye B30.9 [place] [id number] [place] [address] 18994- 2682 03 May, 2015 Dental examination Z01.20 [place] [id number] [place] [address] 08433- 2397 14 Jul, 2014 [place] [address] [address] 4731 Jul, [place] [id number] [place] [address] 06182- 4696 14 May, 2013 [place] [id number] [place] [address] 06946- 8418 May, [place] [address] [id number] [place] [address]- 4147 07 Apr, 2013 [facility] [address] [id number] [place] [address]- 2773 Apr, [facility] [place] [facility] [address] [id number] [place] [address]- 9383 Mar, [facility] [address] [id number] [place] [address]- 8425 Mar, [facility] [place] [facility] [address] [id number] [place] [address]- 4768 Oct, [facility] [address] [id number] [place] [address]- 7156 August, [facility] [address] [id number] [place] [address]- 6619 August, [facility] [address] [id number] [place] [address]- 1859 August, [facility] [address] [id number] [place] [address]- 3971 August, [facility] [address] [id number] [place] [address]- 7326 August, [facility] [address] [id number] [place] [address]- 6363 Sep, [facility] [address] [id number] [place] [address]- 3542 August, [facility] [address] [id number] [place] [address]- 9083 Jun, [facility] [place] [facility] [address] [id number] [place] [address]- 9913 Feb, [facility] [place] [facility] [address] [id number] [place] [address]- 7726 Jan, [facility] [place] [facility] [address] [id number] [place] [address]- 0154 May, [facility] [address] [facility] [id number], [place] [address]- 2546 Mar, [facility] [address] [facility] [id number], [place] [address]- 2546 Mar, [facility] [address] [facility] [id number], [place] [address]- 2546 Mar, [facility] [address] [facility] [id number], [place] [address]- 2546 Mar, [facility] [address] [facility] [id number][place] [address]- 2546 Mar, IMMUNIZATIONS Vaccine Route Administration Date Status TDAP (BOOSTRIX) IM Intramuscular August 20, 2017 Administered SOCIAL HISTORY Never Assessed REASON FOR VISIT right knuckle pain. punched a wall this am. small abrasion on right knuckle. [email or web address] PLAN OF CARE Activity Details Follow Up Return Tuesday for x-ray Reason: VITAL SIGNS Height 67 in 2017-08-20 Weight 231.0 lbs 2017-08-20 Temperature 98.0 degrees Fahrenheit 2017-08-20 Heart Rate 84 bpm 2017-08-20 Respiratory Rate 20 2017-08-20 BMI 36.18 kg/m2 2017-08-20 Blood pressure systolic 114 mmHg 2017-08-20 Blood pressure diastolic 80 mmHg 2017-08-20 MEDICATIONS Medication Instructions Dosage Frequency Start Date End Date Duration Status Chlorzoxazone 500 mg Orally 2 times a day 1 tablet 12h Jul,Sep 30 day(s) Active Cymbalta 30 MG Orally Once a day 1 capsule 24h Jul, 07 days Active Cymbalta 60 mg Orally Once a day 1 capsule 24h Jul, 30 day(s) Active RESULTS No Results PROCEDURES Procedure Date Ordered Result Body Site TDAP (BOOSTRIX) August 20, 2017 SINGLE IMMUNIZATION ADMIN August 20, 2017 INSTRUCTIONS MEDICATIONS ADMINISTERED No Known Medications MEDICAL (GENERAL) HISTORY Type Description Date Medical History plantar fasc Medical History gestational diabetes Surgical History Cyst Removal Surgical History Foot Surgery 2014 Surgical History c-sectionsx 2 2016 Hospitalization History Surgery/childbirth
--- OUTSIDE RECORDS SUMMARY | 2018-06-19 20:18 | XMS REPORT ---
Author Author SHIRA IGNACIO Organization [facility] Address [address] [place] [address] Care Team Providers Care Coating Machine Operator Name Role Phone SHIRA IGNACIO Unavailable PROBLEMS Type Condition ICD9-CM Code LAY90-WC Code Onset Dates Condition Status SNOMED Code Problem Mood disorder F39 Active 72167430 Problem Tarsal tunnel syndrome of right side G57.51 Active 96246542 Problem Tendonitis M77.9 Active 15248644 Problem Plantar fasciitis, bilateral M72.2 Active 605502822 ALLERGIES No Known Allergies ENCOUNTERS Encounter Location Date Diagnosis [facility] [id number] [place] [address]16 Oct, Dysuria R30.0 and Acute cystitis without hematuria N30.00 [facility] [id number] [place] [address] 25998- 4901 August, Plantar fasciitis, bilateral M72.2 [facility] [id number] [place] [address] 91595- 6906 August, Plantar fasciitis, bilateral M72.2 [facility] [id number] [place] [address]167 -2101 August, Acute cystitis without hematuria N30.[address] [facility] [id number] [place] [address] 76082- [address]104 August, [facility] [id number] [place] [address] 58742- 1300 Jul, Right hand pain M79.641 and Encounter for immunization Z23 [facility] [id number] [place] [address] 92637 -9025 28 Apr, 2018 Right hand pain M79.641 and Encounter for immunization Z23 [facility] [id number] [place] [address] 59350- 5436 Jul, Mood disorder F39 ; Tarsal tunnel syndrome of right side G57.51 and Plantar fasciitis of left foot M72.2 [facility] [address] [address]47 Jul, Abscess of right breast N61.1 [facility] [address] [address]12- [address] Jun, [facility] [address] 31589- 7404 Jun, Plantar fasciitis, bilateral M72.2 [facility] [address] 60191- 9174 Apr, Plantar fasciitis, bilateral M72.[address] [facility] [address] [address]158- 0099 Apr, Plantar fasciitis, bilateral M72.2 [facility] [address] [address]- [address]45 Apr, [facility] [id number] [place] [address] 82124- 5821 Mar, Plantar fasciitis, bilateral M72.2 [facility] [id number] [place] [address] 95673- 1361 Mar, Plantar fasciitis, bilateral M72.2 [facility] [id number] [place] [address] 17819 -5414 Mar, Pain of right breast N64.4 [facility] [id number] [place] [address] 85196- 5508 Feb, Plantar fasciitis, bilateral M72.2 [facility] [address] 07042- 8442 Feb, Posterior tibial tendonitis of right leg M76.821 [facility] [address] [address] Jan, Plantar fasciitis, bilateral M72.2 [facility] [address] [address] [id number] [address]- 1883 Dec, Plantar fasciitis, bilateral M72.2 [facility] [id number] [place] [address] 43149- 5083 Nov, Plantar fasciitis, bilateral M72.[address] [facility] [id number] [place] [address] 11886- 0561 Nov, [facility] [id number] [place] [address] 14418- 6910 Nov, [facility] [id number] [place] [address] 05117- 5117 Nov, [facility] [id number] [place] [address] 55118- 6094 Nov, [facility] [id number] [place] [address] 43019- 1634 Nov, [facility] [address] [address] 8483 Oct, [facility] [id number] [place] [address] 01335- 8869 Oct, [facility] [address], [place] [address]- 7942 Sep, Plantar fasciitis, bilateral M72.[address] [facility] [id number], [place] [address]- 9935 August, Plantar fasciitis, bilateral M72.2 [facility] [address] [id number] [address]- 5058 August, Plantar fasciitis, bilateral M72.2 and Screening cholesterol level Z13.220 [facility] [place] [id number] [place] [address] 29237 -3108 Jun, Other viral agents as the cause of diseases classified elsewhere B97.89 and Acute upper respiratory infection, unspecified J06.9 [facility] [place] [id number] [place] [address] 88462 -1329 16 May, 2016 Bronchitis J40 and Vaginal yeast infection B37.3 [facility] IN [address] [address]321 Feb, Arm pain, right M79.601 [facility] IN [address] 8[address]52 Jan, Tinea corporis B35.[address] 19[address]- 6596 Nov, Plantar fasciitis, bilateral M72.2 [facility] IN [address] 305[address] -[address]998 August, Bacterial conjunctivitis of left eye H10.9 [facility] IN [address] 84621 -[address]99 August, Viral conjunctivitis of left eye B30.9 [place] [id number] [place] [address] 83299- 9897 03 May, 2015 Dental examination Z01.20 [place] [id number] [place] [address] 75056- 0028 14 Jul, 2014 [place] [address] [address]68- 7417 Jul, [place] [address] 26156- 4035 14 May, 2013 [place] [address] [address]235- 2707 May, [place] [address] [place] [facility] [place] [place] [address] 07 Apr, 2013 [facility] [address] [id number] [place] [address]- 4349 Apr, [facility] [address] [id number] [place] [address]- 3017 Mar, [facility] [address] [id number] [place] [address]- 6513 Mar, [facility] [address] [id number] [place] [address]- 0368 Oct, [facility] [address] [id number] [place] [address]- 8159 August, [facility] [address] [id number] [place] [address]- 7972 August, [facility] [address] [id number] [place] [address]- 5965 August, [facility] [address] [id number] [place] [address]- 0650 August, [facility] [address] [id number] [place] [address]- 3300 August, [facility] [address] [id number] [place] [address]- 3851 Sep, [facility] [address] [id number] [place] [address]- 2297 August, [facility] [address] [id number] [place] [address]- 9607 Jun, [facility] [address] [id number] [place] [address]- 7346 Feb, [facility] [address] [id number] [place] [address]- 3326 Jan, [facility] [address] [id number] [place] [address]- 4250 May, [facility] [address] [facility] [id number] [address] Mar, [facility] [address] [facility] [id number] [address] 2146 Mar, [facility] [address] [facility] [id number] [address] 3090 Mar, [facility] [address] [facility] [address] [id number], [place] [address]106 Mar, [facility] [address] [facility] [address] [id number], [place] [address]- 4254 Mar, IMMUNIZATIONS No Known Immunizations SOCIAL HISTORY Never Assessed REASON FOR VISIT red sore on her right breast. been there for 4 days. reports it has been draining. [email or web address] PLAN OF CARE Activity Details Follow Up prn Reason: VITAL SIGNS Height 67 in 2017-07-25 Weight 238.6 lbs 2017-07-25 Temperature 97.8 degrees Fahrenheit 2017-07-25 Heart Rate 60 bpm 2017-07-25 Respiratory Rate 20 2017-07-25 BMI 37.37 kg/m2 2017-07-25 MEDICATIONS Medication Instructions Dosage Frequency Start Date End Date Duration Status Tizanidine HCl 4 MG Orally Three times a day 1 tablet as needed 8h Jun, Not-Taking Bactrim DS 800-160 MG Orally Twice a day 1 tablet 12h Jul,Jul 10 day(s) Active Nabumetone 500 mg Orally Twice a day 1 tablet 12h Jun, August, 30 day(s) Not-Taking Gabapentin 300 MG TAKE ONE CAPSULE BY MOUTH THREE TIMES DAILY (MUST TRANSITION CARE FOR REFILLS) 30 Not-Taking Bactroban 2 % Externally Three times a day 1 application to affected area 8h Jul, Jul, 7 days Active RESULTS No Results PROCEDURES Procedure Date Ordered Result Body Site CULTURE BACTERIA ANAEROBIC July 25, 2017 CULTURE, BACTERIA, OTHER July 25, 2017 INSTRUCTIONS MEDICATIONS ADMINISTERED No Known Medications MEDICAL (GENERAL) HISTORY Type Description Date Medical History plantar fasc Medical History gestational diabetes Surgical History Cyst Removal Surgical History Foot Surgery 2014 Surgical History c-sectionsx 2 2016 Hospitalization History Surgery/childbirth
--- OUTSIDE RECORDS SUMMARY | 2018-06-19 20:18 | XMS REPORT ---
Author Author CALI STEVENS Organization [facility] Address [address] [place] [address] Care Team Providers Care Sales Facilitator Name Role Phone CALI STEVENS Unavailable PROBLEMS Type Condition ICD9-CM Code [id number] Code Onset Dates Condition Status SNOMED Code Problem Mood disorder F39 Active 24299008 Problem Tarsal tunnel syndrome of right side G57.51 Active 24134079 Problem Tendonitis M77.9 Active 12070071 Problem Plantar fasciitis, bilateral M72.2 Active 696429290 ALLERGIES No Information ENCOUNTERS Encounter Location Date Diagnosis [facility] [id number] [place] [address]13 -0810 Oct, Dysuria R30.0 and Acute cystitis without hematuria N30.00 [facility] [id number] [place] [address] 03686- 2209 August, Plantar fasciitis, bilateral M72.2 [facility] [id number] [place] [address] 91430- 4279 August, Plantar fasciitis, bilateral M72.2 [facility] IN [facility] [id number] [place] [address] 34413 -8417 August, Acute cystitis without hematuria N30.00 and Dysuria R30.0 [facility] [id number] [place] [address] 48349- 7794 August, [facility] [address] [address]38- 5346 Jul, Right hand pain M79.641 and Encounter for immunization Z23 [facility] IN [facility] [id number] [place] [address] 69406 -4800 Jul, Right hand pain M79.641 and Encounter for immunization Z23 [facility] [id number] [place] [address] 68157- 2238 Jul, Mood disorder F39 ; Tarsal tunnel syndrome of right side G57.51 and Plantar fasciitis of left foot M72.2 [facility] [id number] [place] [address] 10358 -2542 Jul, Abscess of right breast N61.1 [facility] [address] 91979- 4310 Jun, [facility] [address] 74803- 7668 Jun, Plantar fasciitis, bilateral M72.2 [facility] [id number] [place] [address] 97442- 0810 Apr, Plantar fasciitis, bilateral M72.2 and Tendonitis M77.9 [facility] [address] 27062- 1912 Apr, Plantar fasciitis, bilateral M72.2 [facility] [id number] [place] [address] 18083- 8061 Apr, [facility] [id number] [place] [address] 32799- 1021 Mar, Plantar fasciitis, bilateral M72.2 [facility] [id number] [place] [address] 03713- 6754 Mar, Plantar fasciitis, bilateral M72.2 [facility] [id number] [place] [address] 31884 -2416 Mar, Pain of right breast N64.4 [facility] [address] 25338- 1552 Feb, Plantar fasciitis, bilateral M72.2 [facility] [id number] [place] [address] 92965- 4816 Feb, Posterior tibial tendonitis of right leg M76.821 [facility] [address] [id number] [address]331 Jan, Plantar fasciitis, bilateral M72.2 [facility] [id number] [place] [address] 12570- 1582 Dec, Plantar fasciitis, bilateral M72.2 [facility] [id number] [place] [address] 97884- 0491 Nov, Plantar fasciitis, bilateral M72.2 and Tendonitis M77.9 [facility] [id number] [address] 7721 Nov, [facility] [id number] [place] [address] 06201- 5429 Nov, [facility] [id number] [place] [address] 62588- 2655 Nov, [facility] [id number] [place] [address] 63282- 8046 Nov, [facility] [id number] [place] [address] 89930- 8114 Nov, [facility] [id number] [place] [address] 54203- 0044 Oct, [facility] [address] [place] [address] 06770- 3992 Oct, [facility] [id number] [place] [address] 18293- 8417 Sep, Plantar fasciitis, bilateral M72.2 and Tendonitis M77.9 [facility] [id number] [place] [address] 47394- 4672 August, Plantar fasciitis, bilateral M72.2 [facility] [id number] [place] [address] 11585- 9470 August, Plantar fasciitis, bilateral M72.2 and Screening cholesterol level Z13.220 [facility] [id number] [place] [address] 09983 -0473 Jun, Other viral agents as the cause of diseases classified elsewhere B97.89 and Acute upper respiratory infection, unspecified J06.9 [facility] [id number] [place] [address] 52187 -2134 16 May, 2016 Bronchitis J40 and Vaginal yeast infection B37.3 [facility] IN [address] 35164 -8760 Feb, Arm pain, right M79.601 [facility] IN [address] 66409 -3607 Jan, Tinea corporis B35.[address] 14153- 4882 Nov, Plantar fasciitis, bilateral M72.2 [facility] IN [address] 25344 -8451 August, Bacterial conjunctivitis of left eye H10.9 [facility] IN [address] 60688 -3142 August, Viral conjunctivitis of left eye B30.9 [place] [address] 25384- 5487 03 May, 2015 Dental examination Z01.20 [place] [address] 19675- 8588 Jul, [place] [address] 55642- 4841 Jul, [place] [address] 65787- 1786 14 May, 2013 [place] [address] 82668- 5852 May, [place] [address] 19974- 6943 Apr, [facility] [address] [id number] [place] [address]- 9569 Apr, [facility] [address] [id number] [place] [address]- 5626 Mar, [facility] [address] [id number] [place] [address]- 0772 Mar, [facility] [place] [facility] [address] [id number] [place] [address]- 8197 Oct, [facility] [address] [id number] [place] [address]- 9712 August, [facility] [address] [id number] [place] [address]- 4967 August, [facility] [address] [id number] [place] [address]- 7854 August, [facility] [address] [id number] [place] [address]- 8444 August, [facility] [address] [id number] [place] [address]- 8351 August, [facility] [address] [id number] [place] [address]- 8692 Sep, [facility] [address] [id number] [place] [address]- 8467 August, [facility] [place] [facility] [address] [id number] [place] [address]- 8330 Jun, [facility] [place] [facility] [address] [id number] [place] [address]- 3195 Feb, [facility] [place] [facility] [address] [id number] [place] [address]- 7175 Jan, [facility] [place] [facility] [address] [id number] [place] [address]- 2060 May, [facility] [place] [facility] [address] [facility] [id number] [place] [address]- 2546 Mar, [facility] [address] [id number] [address]- 9806 Mar, [facility] [address] [id number] [address]- 2546 Mar, [facility] [address] [id number] [address]- 7196 Mar, [facility] [address] [facility] [id number] [address]- 2381 Mar, IMMUNIZATIONS No Known Immunizations SOCIAL HISTORY Never Assessed REASON FOR VISIT Medication change PLAN OF CARE VITAL SIGNS MEDICATIONS Medication Instructions Dosage Frequency Start Date End Date Duration Status Nabumetone 500 mg Orally Twice a day 1 tablet 12h Jun, August, 30 day(s) Active RESULTS No Results PROCEDURES No Known procedures INSTRUCTIONS MEDICATIONS ADMINISTERED No Known Medications MEDICAL (GENERAL) HISTORY Type Description Date Medical History plantar fasc Medical History gestational diabetes Surgical History Cyst Removal Surgical History Foot Surgery 2014 Surgical History c-sectionsx 2 2014, 2016 Hospitalization History Surgery/childbirth
--- OUTSIDE RECORDS SUMMARY | 2018-06-19 20:18 | XMS REPORT ---
Author Author CALI STEVENS Organization [facility] Address [address] [place] [address] Care Team Providers Care Employment Supervisor Name Role Phone CALI STEVENS Unavailable PROBLEMS Type Condition ICD9-CM Code MSJ10-EN Code Onset Dates Condition Status SNOMED Code Problem Mood disorder F39 Active 31237472 Problem Tarsal tunnel syndrome of right side G57.51 Active 72798701 Problem Tendonitis M77.9 Active 20415228 Problem Plantar fasciitis, bilateral M72.2 Active 205605120 ALLERGIES No Known Allergies ENCOUNTERS Encounter Location Date Diagnosis [facility] IN [facility] [id number] [place] [address] 66036 -2310 Oct, Dysuria R30.0 and Acute cystitis without hematuria N30.00 [facility] [id number] [place] [address] 64411- 4950 August, Plantar fasciitis, bilateral M72.2 [facility] [id number] [place] [address] 83694- 0913 August, Plantar fasciitis, bilateral M72.2 [facility] [id number] [place] [address] 27960 -1012 August, Acute cystitis without hematuria N30.00 and Dysuria R30.0 [facility] [id number] [place] [address] 37897- 9400 August, [facility] [address] [address]49- 4565 Jul, Right hand pain M79.641 and Encounter for immunization Z23 [facility] IN [facility] [id number] [place] [address] 03597 -5246 Jul, Right hand pain M79.641 and Encounter for immunization Z23 [facility] [id number] [place] [address] 12738- 7678 Jul, Mood disorder F39 ; Tarsal tunnel syndrome of right side G57.51 and Plantar fasciitis of left foot M72.2 [facility] [id number] [place] [address] 83822 -2033 Jul, Abscess of right breast N61.1 [facility] [address] 40718- 3247 Jun, [facility] [address] 57141- 1323 Jun, Plantar fasciitis, bilateral M72.2 [facility] [id number] [place] [address] 76049- 8049 Apr, Plantar fasciitis, bilateral M72.2 and Tendonitis M77.9 [place] [address] 83868- 3960 Apr, Plantar fasciitis, bilateral M72.2 [facility] [address] 19603- 7573 Apr, [facility] [id number] [place] [address] 35500- 3537 Mar, Plantar fasciitis, bilateral M72.2 [facility] [id number] [place] [address] 03661- 5947 Mar, Plantar fasciitis, bilateral M72.2 [facility] [id number] [place] [address] 31839 -5472 Mar, Pain of right breast N64.4 [facility] [address] 34597- 8111 Feb, Plantar fasciitis, bilateral M72.2 [facility] [id number] [place] [address] 28784- 9463 Feb, Posterior tibial tendonitis of right leg M76.821 [facility] [address] [id number] [address]- 1665 Jan, Plantar fasciitis, bilateral M72.2 [facility] [address] [place] [address] 25462- 3975 Dec, Plantar fasciitis, bilateral M72.2 [facility] [id number] [place] [address] 09198- 2133 Nov, Plantar fasciitis, bilateral M72.2 and Tendonitis M77.9 [facility] [address] [address]- 0771 Nov, [facility] [id number] [place] [address] 70698- 2829 Nov, [facility] [id number] [place] [address] 51647- 5880 Nov, [facility] [id number] [place] [address] 21777- 7135 Nov, [facility] [address] [place] [address] 96422- 1197 Nov, [facility] [id number] [place] [address] 13603- 8218 Oct, [facility] [address], [place] [address]- 3390 Oct, [facility] [id number] [place] [address] 61023- 0374 Sep, Plantar fasciitis, bilateral M72.2 and Tendonitis M77.9 [facility] [id number] [place] [address] 33228- 1173 August, Plantar fasciitis, bilateral M72.2 [facility] [address], [place] [address]- 9750 August, Plantar fasciitis, bilateral M72.2 and Screening cholesterol level Z13.220 [facility] [id number] [place] [address] 32072 -1514 Jun, Other viral agents as the cause of diseases classified elsewhere B97.89 and Acute upper respiratory infection, unspecified J06.9 [facility] [place] [id number] [place] [address] 24491 -4160 16 May, 2016 Bronchitis J40 and Vaginal yeast infection B37.3 [facility] [address] 57516 -5800 Feb, Arm pain, right M79.601 [facility] [address] 38285 -4834 Jan, Tinea corporis B35.[address] 75884- 9202 Nov, Plantar fasciitis, bilateral M72.2 [facility] [address] 42056 -8519 August, Bacterial conjunctivitis of left eye H10.9 [facility] [address] 41670 -3778 August, Viral conjunctivitis of left eye B30.9 [place] [id number] [place] [address] 41019- 4786 03 May, 2015 Dental examination Z01.20 [place] [address] 76116- 8447 14 Jul, 2014 [place] [address] 55624- 8875 Jul, [place] [address] 58223- 6331 14 May, 2013 [place] [id number] [place] [address] 03148- 1091 May, [place] [address] 54769- 3722 Apr, [facility] [address] [id number] [place] [address]- 1891 Apr, [facility] [address] [id number] [place] [address]- 8660 Mar, [facility] [address] [id number] [place] [address]- 4180 Mar, [facility] [address] [id number] [place] [address]- 2027 Oct, [facility] [address] [id number] [place] [address]- 9597 August, [facility] [address] [id number] [place] [address]- 8125 August, [facility] [address] [id number] [place] [address]- 7427 August, [facility] [address] [id number] [place] [address]- 5987 August, [facility] [address] [id number] [place] [address]- 6879 August, [facility] [address] [id number] [place] [address]- 9054 Sep, [facility] [address] [id number] [place] [address]- 0488 August, [facility] [place] [facility] [address] [id number] [place] [address]- 7022 Jun, [facility] [place] [facility] [address] [id number] [place] [address]- 3131 Feb, [facility] [place] [facility] [address] [id number] [place] [address]- 8198 Jan, [facility] [place] [facility] [address] [id number] [place] [address]- 8450 May, [facility] [place] [facility] [address] [facility] [id number] [place] [address]- 9336 Mar, [facility] [address] [facility] [id number] [address]- 4451 Mar, [facility] [address] [facility] [id number], [place] [address]- 1990 Mar, [facility] [address] [facility] [id number], [place] [address]- 7407 Mar, [facility] [address] [facility] [id number] [address]- 1353 Mar, IMMUNIZATIONS No Known Immunizations SOCIAL HISTORY Never Assessed REASON FOR VISIT Pain management (chronic), reports okay sometimes. Muscle relaxers making her sleepy. , Wants to talk about depression or anxiety feelings CBrumbackRN PLAN OF CARE VITAL SIGNS Height 67 in 2017-08-04 Weight 240.7 lbs 2017-08-04 Temperature 98.5 degrees Fahrenheit 2017-08-04 Heart Rate 88 bpm 2017-08-04 Respiratory Rate 18 2017-08-04 BMI 37.69 kg/m2 2017-08-04 Blood pressure systolic 112 mmHg 2017-08-04 Blood pressure diastolic 82 mmHg 2017-08-04 MEDICATIONS Medication Instructions Dosage Frequency Start Date End Date Duration Status Cymbalta 30 MG Orally Once a day 1 capsule 24h Jul, 07 days Active Chlorzoxazone 500 mg Orally 2 times a day 1 tablet 12h Jul,Sep 30 day(s) Active Cymbalta 60 mg Orally Once a [...]
--- OUTSIDE RECORDS SUMMARY | 2018-06-19 20:19 | XMS REPORT ---
Author Author CALI STEVENS Organization [facility] Address [address] [place] [address] Care Team Providers Care Brass Finisher Name Role Phone CALI STEVENS Unavailable PROBLEMS Type Condition ICD9-CM Code JPI72-SL Code Onset Dates Condition Status SNOMED Code Problem Mood disorder F39 Active 42013127 Problem Tarsal tunnel syndrome of right side G57.51 Active 53750917 Problem Tendonitis M77.9 Active 65330812 Problem Plantar fasciitis, bilateral M72.2 Active 210695435 ALLERGIES No Information ENCOUNTERS Encounter Location Date Diagnosis [facility] [address] [address] Feb, [facility] [address] [address] Feb, [facility] [address] [address] Oct, Dysuria R30.0 and Acute cystitis without hematuria N30.00 [facility] [address] [address] August, Plantar fasciitis, bilateral M72.2 [facility] [address] [address] August, Plantar fasciitis, bilateral M72.2 [facility] [address] [address] August, Acute cystitis without hematuria N30.00 and Dysuria R30.0 [facility] [address] [address] August, [facility] [address] [address] Jul, Right hand pain M79.641 and Encounter for immunization Z23 [facility] [id number] [place] [address] Jul, Right hand pain M79.641 and Encounter for immunization Z23 [facility] [id number] [place] [address]167- 5454 Jul, Mood disorder F39 ; Tarsal tunnel syndrome of right side G57.51 and Plantar fasciitis of left foot M72.2 [facility] [id number] [place] [address] Jul, Abscess of right breast N61.1 [facility] [address] [address] Jun, [facility] [address] [address] Jun, Plantar fasciitis, bilateral M72.2 [facility] [id number] [place] [address]- 9531 Apr, Plantar fasciitis, bilateral M72.2 and Tendonitis M77.9 [facility] [id number] [place] [address]659- 6323 Apr, Plantar fasciitis, bilateral M72.2 [facility] [id number] [place] [address]74- 0915 Apr, [facility] [address] [address] Mar, Plantar fasciitis, bilateral M72.2 [facility] [address] [address]- [address] Mar, Plantar fasciitis, bilateral M72.2 [facility] [id number] [place] [address] Mar, Pain of right breast N64.4 [facility] [address] [place] [address]- [address] Feb, Plantar fasciitis, bilateral M72.2 [facility] [id number] [place] [address] 16176- 3103 Feb, Posterior tibial tendonitis of right leg M76.821 [facility] [id number] [place] [address] 70086- 9360 Jan, Plantar fasciitis, bilateral M72.2 [facility] [id number] [place] [address] 19556- 4098 Dec, Plantar fasciitis, bilateral M72.2 [facility] [id number] [place] [address] 08033- 6964 Nov, Plantar fasciitis, bilateral M72.2 and Tendonitis M77.9 [facility] [id number] [place] [address] 12498- 0077 Nov, [facility] [id number] [place] [address] 05144- 0766 Nov, [facility] [id number] [place] [address] 43093- 9245 Nov, [facility] [id number] [place] [address] 17743- 3161 Nov, [facility] [id number] [place] [address] 68102- 3556 Nov, [facility] [id number] [place] [address] 49850- 5593 Oct, [facility] [address] [id number] [address] 26[address] Oct, [facility] [id number] [place] [address] 04161- 6147 Sep, Plantar fasciitis, bilateral M72.2 and Tendonitis M77.9 [facility] [id number] [place] [address] 95619- 0278 August, Plantar fasciitis, bilateral M72.2 [place] [address] [address] August, Plantar fasciitis, bilateral M72.2 and Screening cholesterol level Z13.220 [facility] [address] [address] Jun, Other viral agents as the cause of diseases classified elsewhere B97.89 and Acute upper respiratory infection, unspecified J06.9 [facility] [address] [address] May, Bronchitis J40 and Vaginal yeast infection B37.3 [facility] [address] [address]84 Feb, Arm pain, right M79.601 [facility] [address] [address]863 Jan, Tinea corporis B35.[address] [address]- [address] Nov, Plantar fasciitis, bilateral M72.2 [facility] [address] [address]59 August, Bacterial conjunctivitis of left eye H10.9 [facility] [address] [address]25 August, Viral conjunctivitis of left eye B30.9 [place] [address] [address]- [address] May, Dental examination Z01.[address] [address]- [address] 14 Jul, 2014 [place] [address] 269[address]- 4853 13 Jul, 2014 [place] [address] 100[address]- 2546 May, [facility] [address] [id number] [place] [address] May, [facility] [address] [id number] [place] [address]- 0539 Apr, [facility] [address] [id number] [place] [address]- 8041 Apr, [facility] [address] [id number] [place] [address]- 0561 Mar, [facility] [address] [id number] [place] [address]- 1600 Mar, [facility] [address] [id number] [place] [address]- 1242 Oct, [facility] [address] [id number] [place] [address]- 4403 August, [facility] [address] [id number] [place] [address]- 5973 August, [facility] [address] [id number] [place] [address]- 4270 August, [facility] [address] [id number] [place] [address]- 7670 August, [facility] [address] [id number] [place] [address]- 9193 August, [facility] [place] [facility] [address] [id number] [place] [address]- 1551 Sep, [facility] [place] [facility] [address] [id number] [place] [address]- 3574 August, [facility] [place] [facility] [address] [id number] [place] [address]- 7934 Jun, [facility] [place] [facility] [address] [id number] [place] [address]- 9154 Feb, [facility] [place] [facility] [address] [id number] [address] Jan, [facility] [address] [address] May, [facility] [address] [address] Mar, [facility] [address] [address] Mar, [facility] [address] [address] 59[address] Mar, [facility] [address] [address]- [address] Mar, [facility] [address] [id number] [address]- 1197 Mar, IMMUNIZATIONS No Known Immunizations SOCIAL HISTORY Never Assessed REASON FOR VISIT Requests return call PLAN OF CARE VITAL SIGNS MEDICATIONS Unknown Medications RESULTS No Results PROCEDURES No Known procedures INSTRUCTIONS MEDICATIONS ADMINISTERED No Known Medications MEDICAL (GENERAL) HISTORY Type Description Date Medical History plantar fasc Medical History gestational diabetes Surgical History Cyst Removal Surgical History Foot Surgery 2014 Surgical History c-sectionsx 2 2016 Hospitalization History Surgery/childbirth
--- OUTSIDE RECORDS SUMMARY | 2018-06-19 20:20 | XMS REPORT ---
Author Author SARITA Booth Organization [facility] Address [address] [place] [address] Care Team Providers Care Electrical Linesworker Name Role Phone Emmy SARITA Unavailable PROBLEMS Type Condition ICD9-CM Code MLU12-ER Code Onset Dates Condition Status SNOMED Code Problem Tendonitis M77.9 Active 40248347 Problem Plantar fasciitis, bilateral M72.2 Active 240354732 ALLERGIES No Information ENCOUNTERS Encounter Location Date Diagnosis [facility] [address] [address] Jul, [facility] [address] [address] Jun, [facility] [address] [address]- 3655 Jun, Plantar fasciitis, bilateral M72.2 [facility] [id number] [place] [address]- 8849 Apr, Plantar fasciitis, bilateral M72.2 and Tendonitis M77.9 [facility] [address] [address]- [address] Apr, Plantar fasciitis, bilateral M72.2 [facility] [id number] [place] [address]96- 0516 Apr, [facility] [address] [address]- [address]25 Mar, Plantar fasciitis, bilateral M72.2 [facility] [address] [address]- 6035 Mar, Plantar fasciitis, bilateral M72.2 [facility] [id number] [address] Mar, Pain of right breast N64.4 [facility] [id number] [place] [address], [place] [address]- 3[address] Feb, Plantar fasciitis, bilateral M72.2 [facility] [id number] [place] [address]- 4087 Feb, Posterior tibial tendonitis of right leg M76.821 [facility] [id number] [place] [address]- 8175 Jan, Plantar fasciitis, bilateral M72.2 [facility] [id number] [place] [address], [place] [address]- 7526 Dec, Plantar fasciitis, bilateral M72.2 [facility] [id number] [place] [address] 10890- 0639 Nov, Plantar fasciitis, bilateral M72.2 and Tendonitis M77.9 [facility] [address] [address]- 6121 Nov, [facility] [id number] [address]- 9263 Nov, [facility] [address] [address]- 7492 Nov, [facility] [id number] [address]- 6084 Nov, [facility] [id number] [address]- 1964 Nov, [facility] [id number] [address]- 5178 Oct, [facility] [id number] [address]- 0253 Oct, [facility] [id number] [place] [address] 39603- 9975 Sep, Plantar fasciitis, bilateral M72.2 and Tendonitis M77.9 [place] [address] [address]- 7173 August, Plantar fasciitis, bilateral M72.2 [place] [address] 09656- 8436 August, Plantar fasciitis, bilateral M72.2 and Screening cholesterol level Z13.[address] [facility] [place] [address] [address] Jun, Other viral agents as the cause of diseases classified elsewhere B97.89 and Acute upper respiratory infection, unspecified J06.9 [facility] [address] [address] 16 May, 2016 Bronchitis J40 and Vaginal yeast infection B37.3 [facility] [address] [address] -[address]67 Feb, Arm pain, right M79.601 [facility] [address] [address]32 Jan, Tinea corporis B35.4 [place] [address] [address]43- 8050 Nov, Plantar fasciitis, bilateral M72.2 [facility] [address] [address] August, Bacterial conjunctivitis of left eye H10.9 [facility] [address] [address] -[address]4 August, Viral conjunctivitis of left eye B30.9 [place] [address] 77[address]- 7692 May, Dental examination Z01.20 [place] [address] 32456- 0017 14 Jul, 2014 [facility] [address] [id number] [place] [address]- 8572 Jul, [facility] [address] [id number] [place] [address]- 0061 May, [facility] [address] [id number] [place] [address]- 2176 May, [facility] [address] [id number] [place] [address]- 9756 Apr, [facility] [address] [id number] [place] [address]- 3066 Apr, [facility] [address] [id number] [place] [address]- 8808 Mar, [facility] [address] [id number] [place] [address]- 4545 Mar, [facility] [address] [id number] [place] [address]- 5408 Oct, [facility] [address] [id number] [place] [address]- 4990 August, [facility] [address] [id number] [place] [address]- 3854 August, [facility] [address] [id number] [place] [address]- 7146 August, [facility] [address] [id number] [place] [address]- 6996 August, [facility] [address] [id number] [place] [address]- 5909 August, [facility] [address] [id number] [place] [address]- 3956 Sep, [facility] [address] [id number] [place] [address]- 1006 August, [facility] [address] [id number] [address]- 2546 Jun, [facility] [id number] [address] 2546 Feb, [facility] [id number] [address] 2546 Jan, [facility] [address] [address] 2546 May, [facility] [id number] [place] [address]- 7926 Mar, [facility] [id number] [place] [address] 12091- 8466 Mar, [facility] [id number] [place] [address]- 1466 Mar, [facility] [address] [address]- 0428 Mar, [facility] [address] [address]- 2236 Mar, IMMUNIZATIONS No Known Immunizations SOCIAL HISTORY Never Assessed REASON FOR VISIT Appt and Medication PLAN OF CARE VITAL SIGNS MEDICATIONS Unknown Medications RESULTS No Results PROCEDURES No Known procedures INSTRUCTIONS MEDICATIONS ADMINISTERED No Known Medications MEDICAL (GENERAL) HISTORY Type Description Date Medical History plantar fasc Medical History gestational diabetes Surgical History Cyst Removal Surgical History Foot Surgery 2014 Surgical History c-sectionsx 2 2014, 2016 Hospitalization History Surgery/childbirth
--- OUTSIDE RECORDS SUMMARY | 2018-06-19 20:21 | XMS REPORT ---
Author Author JESSICA VILLAGRAN Organization [facility] Address [address] [place] [address] Care Team Providers Care Cutting Machine Tender Decorative Name Role Phone JESSICA VILLAGRAN Unavailable PROBLEMS Type Condition ICD9-CM Code [id number] Code Onset Dates Condition Status SNOMED Code Problem Mood disorder F39 Active 52748113 Problem Tarsal tunnel syndrome of right side G57.51 Active 88395615 Problem Tendonitis M77.9 Active 49436657 Problem Plantar fasciitis, bilateral M72.2 Active 021724097 ALLERGIES No Information ENCOUNTERS Encounter Location Date Diagnosis [place] [address] [address] August, Plantar fasciitis, bilateral M72.2 [facility] [address] [address] August, Plantar fasciitis, bilateral M72.2 [facility] [address] [address] August, Acute cystitis without hematuria N30.00 and Dysuria R30.0 [facility] [address] [address] August, [facility] [address] [address] Jul, Right hand pain M79.641 and Encounter for immunization Z23 [facility] [address] [address] Jul, Right hand pain M79.641 and Encounter for immunization Z23 [facility] [address] [address] Jul, Mood disorder F39 ; Tarsal tunnel syndrome of right side G57.51 and Plantar fasciitis of left foot M72.2 [facility] [address] [place] [id number] [place] [address]858 -9548 Jul, Abscess of right breast N61.1 [facility] [address] [place] [id number] [place] [address] 50780- 6219 Jun, [facility] [address] [address] Jun, Plantar fasciitis, bilateral M72.2 [facility] [address] [place] [id number] [place] [address] 31476- 6998 Apr, Plantar fasciitis, bilateral M72.2 and Tendonitis M77.9 [facility] [address] [place] [id number] [place] [address] 19478- 0295 Apr, Plantar fasciitis, bilateral M72.2 [facility] [address] [address]- [address] Apr, [facility] [id number] [place] [address] 12742- 9930 Mar, Plantar fasciitis, bilateral M72.2 [facility] [id number] [place] [address] 39478- 6676 Mar, Plantar fasciitis, bilateral M72.2 [facility] [id number] [place] [address] 77916 -0642 Mar, Pain of right breast N64.4 [facility] [address] [id number] [place] [address] 29376- 7493 Feb, Plantar fasciitis, bilateral M72.2 [facility] [address] [place] [id number] [place] [address] 62764- 1749 Feb, Posterior tibial tendonitis of right leg M76.821 [facility] [address] [place] [id number] [place] [address] 09991- 6213 Jan, Plantar fasciitis, bilateral M72.2 [facility] [address] [address] Dec, Plantar fasciitis, bilateral M72.2 [facility] [address], [place] [address] Nov, Plantar fasciitis, bilateral M72.2 and Tendonitis M77.9 [facility] [address] [place] [id number] [place] [address] 29643- 2563 Nov, [facility] [address], [place] [address] Nov, [facility] [address] [place] [id number] [place] [address] 94335- 8639 Nov, [facility] [address] [id number] [place] [address] 53365- 0731 Nov, [facility] [address] [place] [address] [id number] [place] [address] 62388- 1025 Nov, [facility] [address], [place] [address] Oct, [facility] [address], [place] [address]- 7587 Oct, [facility] [address], [place] [address] 9[address] Sep, Plantar fasciitis, bilateral M72.2 and Tendonitis M77.9 [facility] [address], [place] [address] August, Plantar fasciitis, bilateral M72.2 [facility] [id number] [place] [address] 46915- 3138 August, Plantar fasciitis, bilateral M72.2 and Screening cholesterol level Z13.220 [facility] [address], [place] [address] Jun, Other viral agents as the cause of diseases classified elsewhere B97.89 and Acute upper respiratory infection, unspecified J06.9 [facility] [address] [place] [id number] [place] [address] 18987 -5432 16 May, 2016 Bronchitis J40 and Vaginal yeast infection B37.3 [facility] [address] [place] [address] [id number] [place] [address] 91229 -3108 Feb, Arm pain, right M79.601 [facility] [place] [address] [place] [id number] [place] [address] 27218 -4840 Jan, Tinea corporis B35.4 [place] [address] [place] [id number] [place] [address] 95580- 2072 Nov, Plantar fasciitis, bilateral M72.2 [facility] [place] [address] [place] [id number] [place] [address] 39472 -8185 18 Aug, 2015 Bacterial conjunctivitis of left eye H10.9 [facility] [place] [address] [place] [id number] [place] [address] 43975 -5305 August, Viral conjunctivitis of left eye B30.9 [place] [address] [place] [id number] [place] [address] 36404- 1194 03 May, 2015 Dental examination Z01.20 [place] [address] [place] [id number] [place] [address] 73472- 7838 14 Jul, 2014 [place] [address] [place] [id number] [place] [address] 85052- 1918 Jul, [place] [address] [place] [id number] [place] [address] 43600- 3837 14 May, 2013 [place] [address] [place] [id number] [place] [address] 60081- 0258 May, [place] [address] [place] [id number] [place] [address] 98325- 5123 Apr, [place] [address] [place] [id number] [place] [address] 10390- 2220 Apr, [facility] [address] [id number] [place] [address]- 0155 Mar, [facility] [address] [id number] [place] [address] Mar, [facility] [address] [id number] [place] [address]- 1319 Oct, [facility] [address] [id number] [place] [address]- 1791 August, [facility] [address] [id number] [place] [address]- 3519 August, [facility] [address] [id number] [place] [address]- 8719 August, [facility] [address] [id number] [place] [address]- 3519 August, [facility] [address] [id number] [place] [address]- 1375 August, [facility] [address] [id number] [place] [address]- 0844 Sep, [facility] [address] [id number] [place] [address]- 7501 August, [facility] [address] [id number] [place] [address]- 5596 Jun, [facility] [address] [id number] [place] [address]- 6618 Feb, [facility] [address] [id number] [place] [address]- 0316 Jan, [facility] [address] [id number] [place] [address]- 9236 May, [facility] [address] [id number] [place] [address]- 8030 Mar, [facility] [address] [id number] [place] [address]- 2546 Mar, [facility] [address] [facility] [id number] [address]- 2546 Mar, [facility] [address] [facility] [id number], [place] [address]- 2546 Mar, [facility] [address] [facility] [id number], [place] [address]- 2546 Mar, IMMUNIZATIONS No Known Immunizations SOCIAL HISTORY Never Assessed REASON FOR VISIT Hydrocodone 03/31 PLAN OF CARE VITAL SIGNS MEDICATIONS Medication Instructions Dosage Frequency Start Date End Date Duration Status Hydrocodone-Acetaminophen 7.5-325 MG Orally 3 times a day 1 tablet 8h Mar, 28 days Active RESULTS No Results PROCEDURES No Known procedures INSTRUCTIONS MEDICATIONS ADMINISTERED No Known Medications MEDICAL (GENERAL) HISTORY Type Description Date Medical History plantar fasc Medical History gestational diabetes Surgical History Cyst Removal Surgical History Foot Surgery 2014 Surgical History c-sectionsx 2 2016 Hospitalization History Surgery/childbirth
--- OUTSIDE RECORDS SUMMARY | 2018-06-19 20:21 | XMS REPORT ---
Author Author JESSICA VILLAGRAN Organization [facility] Address [address] [place] [address] Care Team Providers Care Speech Pathologist Name Role Phone JESSICA VILLAGRAN Unavailable PROBLEMS Type Condition ICD9-CM Code [id number] Code Onset Dates Condition Status SNOMED Code Problem Mood disorder F39 Active 65976368 Problem Tarsal tunnel syndrome of right side G57.51 Active 11056124 Problem Tendonitis M77.9 Active 56674457 Problem Plantar fasciitis, bilateral M72.2 Active 751055521 ALLERGIES No Information ENCOUNTERS Encounter Location Date Diagnosis [place] [id number] [address] August, Plantar fasciitis, bilateral M72.2 [facility] [address] [address]- [address] August, Plantar fasciitis, bilateral M72.2 [facility] [address] [address] August, Acute cystitis without hematuria N30.00 and Dysuria R30.0 [facility] [address] [address]- 6739 August, [facility] [address] [address]- 3602 Jul, Right hand pain M79.641 and Encounter for immunization Z23 [facility] [address] 24[address]135 Jul, Right hand pain M79.641 and Encounter for immunization Z23 [facility] [address] [address]- 5443 Jul, Mood disorder F39 ; Tarsal tunnel syndrome of right side G57.51 and Plantar fasciitis of left foot M72.2 [facility] [address] [place] [id number] [place] [address] 78107 -7183 Jul, Abscess of right breast N61.1 [facility] [address] [place] [id number] [place] [address] 05391- 6099 Jun, [facility] [address] 65792- 3945 Jun, Plantar fasciitis, bilateral M72.2 [facility] [address] [place] [id number] [place] [address] 47590- 7617 Apr, Plantar fasciitis, bilateral M72.2 and Tendonitis M77.9 [facility] [address] [place] [id number] [place] [address] 56607- 8215 Apr, Plantar fasciitis, bilateral M72.2 [facility] [address] 01701- 7152 Apr, [facility] [address] [place] [id number] [place] [address] 41521- 4926 Mar, Plantar fasciitis, bilateral M72.2 [facility] [address] [place] [id number] [place] [address] 33239- 7530 Mar, Plantar fasciitis, bilateral M72.2 [facility] [address] [place] [id number] [place] [address] 93468 -6096 Mar, Pain of right breast N64.4 [facility] [address] [place] [id number] [place] [address]74- 1981 Feb, Plantar fasciitis, bilateral M72.2 [facility] [address] [place] [id number] [place] [address] 73525- 2311 Feb, Posterior tibial tendonitis of right leg M76.821 [facility] [address] [place] [id number] [place] [address] 02424- 5194 Jan, Plantar fasciitis, bilateral M72.2 [facility] [address], [place] [address]- 6755 Dec, Plantar fasciitis, bilateral M72.2 [facility] [address], [place] [address]- 3783 Nov, Plantar fasciitis, bilateral M72.2 and Tendonitis M77.9 [facility] [address] [id number] [place] [address] 65361- 0569 Nov, [facility] [address], [place] [address]- 9911 Nov, [facility] [address] [id number] [place] [address] 55100- 3395 Nov, [facility] [address] [id number] [place] [address] 73462- 0542 Nov, [facility] [address] [place] [id number] [place] [address] 09236- 9880 Nov, [facility] [address], [place] [address]- 9693 Oct, [facility] [address], [place] [address]- 2443 Oct, [facility] [address], [place] [address]- 4299 Sep, Plantar fasciitis, bilateral M72.2 and Tendonitis M77.9 [facility] [address], [place] [address]- 5825 August, Plantar fasciitis, bilateral M72.2 [facility] [address] [place] [address] 74944- 4107 August, Plantar fasciitis, bilateral M72.2 and Screening cholesterol level Z13.220 [facility] [address], [place] [address] Jun, Other viral agents as the cause of diseases classified elsewhere B97.89 and Acute upper respiratory infection, unspecified J06.9 [facility] [address] [place] [id number] [place] [address] 37537 -9105 16 May, 2016 Bronchitis J40 and Vaginal yeast infection B37.3 [facility] [address] [place] [id number] [place] [address] 77117 -8000 Feb, Arm pain, right M79.601 [facility] [place] [address] [place] [id number] [place] [address] 87666 -2908 Jan, Tinea corporis B35.4 [place] [address] [place] [id number] [place] [address] 72174- 7475 Nov, Plantar fasciitis, bilateral M72.2 [facility] [place] [address] [place] [id number] [place] [address] 26529 -7026 18 Aug, 2015 Bacterial conjunctivitis of left eye H10.9 [facility] [place] [address] [place] [id number] [place] [address] 30341 -7436 August, Viral conjunctivitis of left eye B30.9 [place] [address] [place] [id number] [place] [address] 55367- 5897 03 May, 2015 Dental examination Z01.20 [place] [address] [place] [id number] [place] [address] 66039- 3131 14 Jul, 2014 [place] [address] [id number] [place] [address] 99093- 7649 Jul, [place] [address] [id number] [place] [address] 66781- 8889 14 May, 2013 [place] [address] [id number] [place] [address] 06762- 6192 May, [place] [address] [id number] [place] [address] 73216- 7590 Apr, [place] [address] [id number] [place] [address] 81702- 2906 Apr, [facility] [address] [id number] [place] [address]- 6467 Mar, [facility] [address] [id number] [place]14 Mar, [facility] [address] [id number] [place] [address]- 3562 Oct, [facility] [address] [id number] [place] [address]- 7649 August, [facility] [address] [id number] [place] [address]- 4667 August, [facility] [address] [id number] [place] [address]- 2183 August, [facility] [address] [id number] [place] [address]- 4775 August, [facility] [address] [id number] [place] [address]- 1638 August, [facility] [address] [id number] [place] [address]- 1336 Sep, [facility] [address] [id number] [place] [address]- 0270 August, [facility] [address] [id number] [place] [address]- 9126 Jun, [facility] [address] [id number] [place] [address]- 0982 Feb, [facility] [address] [id number] [place] [address]- 0014 Jan, [facility] [address] [id number] [place] [address]- 9376 May, [facility] [address] [id number] [place] [address]- 2797 Mar, [facility] [address] [id number] [place] [address]- 5016 Mar, [facility] [address] [facility] [id number], [place] [address]- 2156 Mar, [facility] [address] [facility] [id number], [place] [address]- 0286 Mar, [facility] [address] [facility] [id number], [place] [address]- 4886 Mar, IMMUNIZATIONS No Known Immunizations SOCIAL HISTORY Never Assessed REASON FOR VISIT Controlled Refill Request PLAN OF CARE VITAL SIGNS MEDICATIONS Unknown Medications RESULTS No Results PROCEDURES No Known procedures INSTRUCTIONS MEDICATIONS ADMINISTERED No Known Medications MEDICAL (GENERAL) HISTORY Type Description Date Medical History plantar fasc Medical History gestational diabetes Surgical History Cyst Removal Surgical History Foot Surgery 2014 Surgical History c-sectionsx 2 2016 Hospitalization History Surgery/childbirth
--- OUTSIDE RECORDS SUMMARY | 2018-06-19 20:21 | XMS REPORT ---
Author Author MEDARDO VERDIN Organization [facility] Address [address] [place] [address] Care Team Providers Care Assembly Instructions Writer Name Role Phone MEDARDO VERDIN Unavailable PROBLEMS Type Condition ICD9-CM Code WLA35-RQ Code Onset Dates Condition Status SNOMED Code Problem Mood disorder F39 Active 59745910 Problem Tarsal tunnel syndrome of right side G57.51 Active 89883619 Problem Tendonitis M77.9 Active 44126591 Problem Plantar fasciitis, bilateral M72.2 Active 004920208 ALLERGIES No Information ENCOUNTERS Encounter Location Date Diagnosis [place] [id number] [address] August, [facility] [address] 83[address] Jul, Mood disorder F39 ; Tarsal tunnel syndrome of right side G57.51 and Plantar fasciitis of left foot M72.2 [facility] [address] [place] [id number] [place] [address]250 [address]6131 Jul, Abscess of right breast N61.1 [facility] [address] [place] [place] [id number] [place] [address] 82103- 2836 Jun, [facility] [address] 8[address]- 3109 Jun, Plantar fasciitis, bilateral M72.2 [facility] [address] 7[address]- 7917 Apr, Plantar fasciitis, bilateral M72.2 and Tendonitis M77.9 [facility] [address] [place] [id number] [place] [address] 32526- 0077 Apr, Plantar fasciitis, bilateral M72.2 [facility] [address] [id number] [place] [address] 70402- 0603 Apr, [facility] [address] [id number] [place] [address] 81074- 2343 Mar, Plantar fasciitis, bilateral M72.2 [facility] [address] [place] [id number] [place] [address] 33631- 9862 Mar, Plantar fasciitis, bilateral M72.2 [facility] [address] [id number] [place] [address] 70889 -5774 Mar, Pain of right breast N64.4 [facility] [address] [place] [id number] [place] [address] 05831- 3760 Feb, Plantar fasciitis, bilateral M72.2 [facility] [address] [id number] [place] [address] 81796- 7005 Feb, Posterior tibial tendonitis of right leg M76.821 [facility] [address] [id number] [place] [address] 71109- 9962 Jan, Plantar fasciitis, bilateral M72.2 [facility] [address] [id number] [place] [address] 09407- 1482 Dec, Plantar fasciitis, bilateral M72.2 [facility] [address] [place] [id number] [place] [address] 73693- 9758 Nov, Plantar fasciitis, bilateral M72.2 and Tendonitis M77.9 [facility] [address] [id number] [place] [address] 78893- 8369 Nov, [facility] [address] [id number] [place] [address] 40630- 5252 Nov, [facility] [address] [id number] [place] [address] 65668- 4536 Nov, [facility] [address] [id number] [place] [address] 95383- 3405 Nov, [facility] [address] [place] [address] 58407- 5773 Nov, [facility] [address] [place] [id number] [place] [address] 11186- 3346 Oct, [facility] [address] [place] [id number] [place] [address] 29092- 0380 Oct, [facility] [address] 44038- 9380 Sep, Plantar fasciitis, bilateral M72.2 and Tendonitis M77.9 [place] [address] [id number] [place] [address] 12058- 7738 August, Plantar fasciitis, bilateral M72.2 [place] [address] [id number] [place] [address] 88619- 7991 August, Plantar fasciitis, bilateral M72.2 and Screening cholesterol level Z13.220 [facility] [place] [id number] [place] [address] 12023 -8602 Jun, Other viral agents as the cause of diseases classified elsewhere B97.89 and Acute upper respiratory infection, unspecified J06.9 [facility] [place] [id number] [place] [address] 18429 -5173 May, Bronchitis J40 and Vaginal yeast infection B37.3 [facility] [place] [id number] [place] [address] 45128 -2076 Feb, Arm pain, right M79.601 [facility] [place] [id number] [place] [address] 01620 -4758 Jan, Tinea corporis B35.4 [place] [address] [place] [id number] [place] [address] 54742- 6682 Nov, Plantar fasciitis, bilateral M72.[address] [facility] [place] [id number] [place] [address] 46167 -5153 August, Bacterial conjunctivitis of left eye H10.9 [facility] [address] [place] [id number] [address] August, Viral conjunctivitis of left eye B30.9 [facility] [address] [address] 3542 03 May, 2015 Dental examination Z01.20 [facility] [address] [address]- 5746 14 Jul, 2014 [facility] [address] [address]- 7368 Jul, [facility] [address] [place] [id number] [place] [address], [place] [address]- 5829 14 May, 2013 [facility] [address] [place] [id number] [address]- 1581 May, [facility] [address] [place] [address] 83364- 5923 Apr, [facility] [address] [address]- 4434 Apr, [facility] [address] [address]- 1803 Mar, [facility] [address] [address]- 3481 Mar, [facility] [address] [address]- 6038 Oct, [facility] [address] [address] 1948 August, [facility] [address] [address] 8[address] August, [facility] [address] [address]- 3806 August, [facility] [address] 6132 August, [facility] [address] [address]- 3276 August, [facility] [address] [address]- 5076 Sep, [facility] [address] [address]- 0816 August, [facility] [address] [place] [address] 79623- 2546 Jun, [facility] [address] [address]- 5211 Feb, [facility] [address] [place] [id number] [place] [address] 41271- 6576 Jan, [facility] [address] [place] [address] 46331- 9166 May, [facility] [address] [place] [id number] [place] [address] 86547- 8317 Mar, [facility] [address] [address]- 2066 Mar, [facility] [address] [address]- 5847 Mar, [facility] [address] [address]- 4536 Mar, [facility] [address] [address]- 7356 Mar, IMMUNIZATIONS No Known Immunizations SOCIAL HISTORY Never Assessed REASON FOR VISIT Controlled Med Refill PLAN OF CARE VITAL SIGNS MEDICATIONS Medication Instructions Dosage Frequency Start Date End Date Duration Status Hydrocodone-Acetaminophen 7.5-325 MG Orally 3 times a day one 8h 12 Dec, 2016 28 days Active RESULTS No Results PROCEDURES No Known procedures INSTRUCTIONS MEDICATIONS ADMINISTERED No Known Medications MEDICAL (GENERAL) HISTORY Type Description Date Medical History plantar fasc Medical History gestational diabetes Surgical History Cyst Removal Surgical History Foot Surgery 2014 Surgical History c-sectionsx 2 2016 Hospitalization History Surgery/childbirth
--- OUTSIDE RECORDS SUMMARY | 2018-06-19 20:21 | XMS REPORT ---
Author Author JESSICA VILLAGRAN Organization [facility] Address [address] [place] [address] Care Team Providers Care Data Sme Name Role Phone JESSICA VILLAGRAN Unavailable PROBLEMS Type Condition ICD9-CM Code [id number] Code Onset Dates Condition Status SNOMED Code Problem Mood disorder F39 Active 26327209 Problem Tarsal tunnel syndrome of right side G57.51 Active 24842006 Problem Tendonitis M77.9 Active 24432257 Problem Plantar fasciitis, bilateral M72.2 Active 048640273 ALLERGIES No Information ENCOUNTERS Encounter Location Date Diagnosis [place] [id number] [address] August, Plantar fasciitis, bilateral M72.2 [facility] [address] 98312- 3088 August, Plantar fasciitis, bilateral M72.2 [facility] [address] 93736 -6889 August, Acute cystitis without hematuria N30.00 and Dysuria R30.0 [facility] [address] 48747- 8569 August, [facility] [address] 78153- 3121 Jul, Right hand pain M79.641 and Encounter for immunization Z23 [facility] [address] 84599 -1229 Jul, Right hand pain M79.641 and Encounter for immunization Z23 [facility] [address] 97126- 6487 Jul, Mood disorder F39 ; Tarsal tunnel syndrome of right side G57.51 and Plantar fasciitis of left foot M72.2 [facility] [address] [place] [id number] [place] [address] 17278 -1800 Jul, Abscess of right breast N61.1 [facility] [address] [place] [id number] [place] [address] 63599- 0713 Jun, [facility] [address] 62056- 8379 Jun, Plantar fasciitis, bilateral M72.2 [facility] [address] [place] [id number] [place] [address] 09294- 2650 Apr, Plantar fasciitis, bilateral M72.2 and Tendonitis M77.9 [facility] [address] [place] [id number] [place] [address] 32694- 9487 Apr, Plantar fasciitis, bilateral M72.2 [facility] [address] 05856- 9062 Apr, [facility] [address] [place] [id number] [place] [address] 58657- 5985 Mar, Plantar fasciitis, bilateral M72.2 [facility] [address] [place] [id number] [place] [address] 82683- 7828 Mar, Plantar fasciitis, bilateral M72.2 [facility] [address] [place] [id number] [place] [address] 06202 -8848 Mar, Pain of right breast N64.4 [facility] [address] [place] [id number] [place] [address] 85007- 3492 Feb, Plantar fasciitis, bilateral M72.2 [facility] [address] [place] [id number] [place] [address] 00002- 4156 Feb, Posterior tibial tendonitis of right leg M76.821 [facility] [address] [place] [id number] [place] [address] 69240- 4683 Jan, Plantar fasciitis, bilateral M72.2 [facility] [address] [address]- 9281 Dec, Plantar fasciitis, bilateral M72.2 [facility] [address] [address] Nov, Plantar fasciitis, bilateral M72.2 and Tendonitis M77.9 [facility] [address] [place] [id number] [place] [address] 02547- 5590 Nov, [facility] [address] [address]- 8016 Nov, [facility] [address] [place] [id number] [place] [address] 16009- 6306 Nov, [facility] [address] [place] [id number] [place] [address] 25976- 6093 Nov, [facility] [address] [place] [id number] [place] [address] 04573- 3619 Nov, [facility] [address], [place] [address]- 6790 Oct, [facility] [address], [place] [address]- 6315 Oct, [facility] [address] [address]- 7633 Sep, Plantar fasciitis, bilateral M72.2 and Tendonitis M77.9 [facility] [address] [address]- 2010 August, Plantar fasciitis, bilateral M72.2 [facility] [address] [place] [address] 55348- 6901 August, Plantar fasciitis, bilateral M72.2 and Screening cholesterol level Z13.220 [facility] [address], [place] [address] Jun, Other viral agents as the cause of diseases classified elsewhere B97.89 and Acute upper respiratory infection, unspecified J06.9 [facility] [address] [place] [id number] [place] [address] 03656 -0386 16 May, 2016 Bronchitis J40 and Vaginal yeast infection B37.3 [facility] [address] [place] [id number] [place] [address] 96437 -1465 Feb, Arm pain, right M79.601 [facility] [place] [address] [place] [id number] [place] [address] 61128 -9588 Jan, Tinea corporis B35.4 [place] [address] [place] [id number] [place] [address] 58626- 0358 Nov, Plantar fasciitis, bilateral M72.2 [facility] [place] [address] [place] [id number] [place] [address] 57767 -9416 18 Aug, 2015 Bacterial conjunctivitis of left eye H10.9 [facility] [place] [address] [place] [id number] [place] [address] 34418 -9320 August, Viral conjunctivitis of left eye B30.9 [place] [address] [place] [id number] [place] [address] 94762- 6898 03 May, 2015 Dental examination Z01.20 [place] [address] [place] [id number] [place] [address] 46083- 0734 14 Jul, 2014 [place] [address] [place] [id number] [place] [address] 65047- 8622 Jul, [place] [address] [place] [id number] [place] [address] 23953- 1481 14 May, 2013 [place] [address] [place] [id number] [place] [address] 98880- 1352 May, [place] [address] [place] [id number] [place] [address] 01055- 1520 Apr, [place] [address] [place] [id number] [place] [address] 03531- 7087 Apr, [facility] [address] [id number] [place] [address]- 1742 Mar, [facility] [address] [id number] [place] [address] Mar, [facility] [address] [id number] [place] [address]- 1993 Oct, [facility] [address] [id number] [place] [address]- 5344 August, [facility] [address] [id number] [place] [address]- 9904 August, [facility] [address] [id number] [place] [address]- 6736 August, [facility] [address] [id number] [place] [address]- 5251 August, [facility] [address] [id number] [place] [address]- 1067 August, [facility] [address] [id number] [place] [address]- 1534 Sep, [facility] [address] [id number] [place] [address]- 5026 August, [facility] [address] [id number] [place] [address]- 8548 Jun, [facility] [address] [id number] [place] [address]- 4854 Feb, [facility] [address] [id number] [place] [address]- 7906 Jan, [facility] [address] [id number] [place] [address]- 6936 May, [facility] [address] [id number] [place] [address]- 5036 Mar, [facility] [address] [id number] [place] [address]- 2546 Mar, [facility] [address] [facility] [id number] [address]- 2546 Mar, [facility] [address] [facility] [id number] [address]- 2546 Mar, [facility] [address] [facility] [id number] [address]- 2546 Mar, IMMUNIZATIONS No Known Immunizations SOCIAL [...]
--- OUTSIDE RECORDS SUMMARY | 2018-06-19 20:22 | XMS REPORT ---
Author Author SARITA Booth Organization [facility] Address [address] [place] [address] Care Team Providers Care Business Quality Assurance Analyst Name Role Phone [email or web address] SARITA Unavailable PROBLEMS Type Condition ICD9-CM Code LHI43-DY Code Onset Dates Condition Status SNOMED Code Problem Tendonitis M77.9 Active 37497531 Problem Plantar fasciitis, bilateral M72.2 Active [id number] ALLERGIES No Information ENCOUNTERS Encounter Location Date Diagnosis [facility] [address] [address] Jul, [facility] [address] [address] Jul, Abscess of right breast N61.1 [facility] [address] [address] Jun, [facility] [address] [address] Jun, Plantar fasciitis, bilateral M72.2 [facility] [address] [address] Apr, Plantar fasciitis, bilateral M72.2 and Tendonitis M77.9 [facility] [address] [address] Apr, Plantar fasciitis, bilateral M72.2 [facility] [address] [address] Apr, [facility] [address] [address] Mar, Plantar fasciitis, bilateral M72.2 [facility] [id number] [address] Mar, Plantar fasciitis, bilateral M72.2 [facility] [id number] [place] [address], [place] [address] Mar, Pain of right breast N64.4 [facility] [id number] [place] [address], [place] [address] Feb, Plantar fasciitis, bilateral M72.2 [facility] [id number] [place] [address]- 4931 Feb, Posterior tibial tendonitis of right leg M76.821 [facility] [id number] [place] [address] 16233- 0305 Jan, Plantar fasciitis, bilateral M72.2 [facility] [id number] [place] [address] 61141- 6396 Dec, Plantar fasciitis, bilateral M72.2 [facility] [id number] [place] [address]93- 1912 Nov, Plantar fasciitis, bilateral M72.2 and Tendonitis M77.9 [facility] [id number] [place] [address] 71241- 8319 Nov, [facility] [address] [address] Nov, [facility] [id number] [place] [address] 21829- 8413 Nov, [facility] [id number] [place] [address] 58587- 9560 Nov, [facility] [id number] [place] [address] 91625- 4975 Nov, [facility] [id number] [place] [address] 88841- 4461 Oct, [facility] [id number] [place] [address] 18369- 2913 Oct, [place] [address] [address] Sep, Plantar fasciitis, bilateral M72.2 and Tendonitis M77.9 [place] [address] [address] August, Plantar fasciitis, bilateral M72.2 [place] [address] [address] August, Plantar fasciitis, bilateral M72.2 and Screening cholesterol level Z13.220 [facility] [address] [address] Jun, Other viral agents as the cause of diseases classified elsewhere B97.89 and Acute upper respiratory infection, unspecified J06.9 [facility] [address] [address] May, Bronchitis J40 and Vaginal yeast infection B37.3 [facility] [place] [id number] [place] [address] Feb, Arm pain, right M79.601 [facility] [place] [id number] [place] [address]239 Jan, Tinea corporis B35.4 [place] [id number] [place] [address] 78436- 4059 Nov, Plantar fasciitis, bilateral M72.2 [facility] [place] [id number] [place] [address] 7[address]254 August, Bacterial conjunctivitis of left eye H10.9 [facility] [place] [id number] [place] [address]67 -8304 August, Viral conjunctivitis of left eye B30.9 [place] [id number] [place] [address] 27955- 8817 May, Dental examination Z01.20 [facility] [address] [id number] [place] [address] Jul, [facility] [address] [id number] [place] [address] 3956 Jul, [facility] [place] [facility] [address] [id number] [place] [address]- 4009 May, [facility] [place] [facility] [address] [id number] [place] [address]- 8056 May, [facility] [place] [facility] [address] [id number] [place] [address]- 3494 Apr, [facility] [place] [facility] [address] [id number] [place] [address]- 2688 Apr, [facility] [address] [id number] [place] [address]- 6967 Mar, [facility] [place] [facility] [address] [id number] [place] [address]- 7314 Mar, [facility] [address] [id number] [place] [address]- 6777 Oct, [facility] [place] [facility] [address] [id number] [place] [address]- 1282 August, [facility] [address] [id number] [place] [address]- 2181 August, [facility] [place] [facility] [address] [id number] [address] August, [facility] [place] [facility] [address] [id number] [place] [address]- 7488 August, [facility] [place] [facility] [address] [id number] [place] [address]- 0473 August, [facility] [place] [facility] [address] [id number] [place] [address]- 7410 Sep, [facility] [place] [facility] [address], [place] [address] August, [facility] [address], [place] [address] Jun, [facility] [address], [place] [address] Feb, [facility] [address], [place] [address]- [address] Jan, [facility] [id number] [place] [address] 56756- 3990 May, [facility] [id number] [place] [address] 57191- 5687 Mar, [facility] [id number] [place] [address] 98761- 4311 Mar, [facility] [id number] [place] [address] 85029- 2672 Mar, [facility] [address] [address] Mar, [facility] [address] Mar, IMMUNIZATIONS No Known Immunizations SOCIAL HISTORY Never Assessed REASON FOR VISIT Hydrocdone request PLAN OF CARE VITAL SIGNS MEDICATIONS Medication Instructions Dosage Frequency Start Date End Date Duration Status Hydrocodone-Acetaminophen 5-325 MG TAKE ONE TABLET BY MOUTH EVERY 6 HOURS NEEDED Nov, 10 Active RESULTS No Results PROCEDURES No Known procedures INSTRUCTIONS MEDICATIONS ADMINISTERED No Known Medications MEDICAL (GENERAL) HISTORY Type Description Date Medical History plantar fasc Medical History gestational diabetes Surgical History Cyst Removal Surgical History Foot Surgery 2014 Surgical History c-sectionsx 2 2016 Hospitalization History Surgery/childbirth
--- OUTSIDE RECORDS SUMMARY | 2018-06-19 20:22 | XMS REPORT ---
Author Author JESSICA VILLAGRAN Organization [facility] Address [address] [place] [address] Care Team Providers Care Annual Giving Manager Name Role Phone JESSICA VILLAGRAN Unavailable PROBLEMS Type Condition ICD9-CM Code YKR79-AX Code Onset Dates Condition Status SNOMED Code Problem Mood disorder F39 Active 10376007 Problem Tarsal tunnel syndrome of right side G57.51 Active 83268101 Problem Tendonitis M77.9 Active 89053924 Problem Plantar fasciitis, bilateral M72.2 Active 968625332 ALLERGIES No Information ENCOUNTERS Encounter Location Date Diagnosis [place] [id number] [address] August, Plantar fasciitis, bilateral M72.2 [facility] [address] [address] August, Plantar fasciitis, bilateral M72.2 [facility] [address] [address] August, Acute cystitis without hematuria N30.00 and Dysuria R30.0 [facility] [address] [address] August, [facility] [address] [address]- [address]32 Jul, Right hand pain M79.641 and Encounter for immunization Z23 [facility] [address] [address] Jul, Right hand pain M79.641 and Encounter for immunization Z23 [facility] [address] [address]- [address] Jul, Mood disorder F39 ; Tarsal tunnel syndrome of right side G57.51 and Plantar fasciitis of left foot M72.2 [facility] [id number] [place] [address]709 Jul, Abscess of right breast N61.1 [facility] [id number] [place] [address] 93492- 7776 Jun, [facility] [address] [address]- 6[address] Jun, Plantar fasciitis, bilateral M72.2 [facility] [id number] [place] [address] 41295- 9956 Apr, Plantar fasciitis, bilateral M72.2 and Tendonitis M77.9 [facility] [id number] [place] [address] 06080- 5438 Apr, Plantar fasciitis, bilateral M72.2 [facility] [address] [address]- 8206 Apr, [facility] [id number] [place] [address] 27073- 8943 Mar, Plantar fasciitis, bilateral M72.2 [facility] [id number] [place] [address] 36790- 6015 Mar, Plantar fasciitis, bilateral M72.2 [facility] [id number] [place] [address] 69140 -6402 Mar, Pain of right breast N64.4 [facility] [id number] [place] [address] 77257- 8805 Feb, Plantar fasciitis, bilateral M72.2 [facility] [id number] [place] [address] 41584- 0803 Feb, Posterior tibial tendonitis of right leg M76.821 [facility] [id number] [place] [address] 13858- 6524 Jan, Plantar fasciitis, bilateral M72.2 [facility] [address], [place] [address]- [address] Dec, Plantar fasciitis, bilateral M72.2 [facility] [address], [place] [address]- 7[address] Nov, Plantar fasciitis, bilateral M72.2 and Tendonitis M77.9 [facility] [id number] [place] [address] 97751- 4181 Nov, [facility] [address], [place] [address]- 5712 Nov, [facility] [id number] [place] [address] 14046- 2398 Nov, [facility] [id number] [place] [address] 48786- 1929 Nov, [facility] [id number] [place] [address] 43946- 7511 Nov, [facility] [address], [place] [address]- 1105 Oct, [facility] [address], [place] [address]- 3907 Oct, [facility] [address], [place] [address]- 9636 Sep, Plantar fasciitis, bilateral M72.2 and Tendonitis M77.9 [facility] [address], [place] [address]- 0316 August, Plantar fasciitis, bilateral M72.2 [facility] [address] [place] [address] 47801- 7005 August, Plantar fasciitis, bilateral M72.2 and Screening cholesterol level Z13.220 [facility] [address], [place] [address] Jun, Other viral agents as the cause of diseases classified elsewhere B97.89 and Acute upper respiratory infection, unspecified J06.9 [facility] [id number] [place] [address] 64402 -1345 16 May, 2016 Bronchitis J40 and Vaginal yeast infection B37.3 [facility] [id number] [place] [address] 00491 -7793 Feb, Arm pain, right M79.601 [facility] [place] [id number] [place] [address] 19198 -7767 Jan, Tinea corporis B35.4 [place] [id number] [place] [address] 26040- 5273 Nov, Plantar fasciitis, bilateral M72.2 [facility] [place] [id number] [place] [address] 50416 -6054 18 Aug, 2015 Bacterial conjunctivitis of left eye H10.9 [facility] IN [place] [id number] [place] [address] 96990 -1584 August, Viral conjunctivitis of left eye B30.9 [place] [id number] [place] [address] 91078- 8558 03 May, 2015 Dental examination Z01.20 [place] [id number] [place] [address] 11655- 1065 14 Jul, 2014 [place] [id number] [place] [address] 44029- 5599 Jul, [place] [id number] [place] [address] 13506- 1558 14 May, 2013 [place] [id number] [place] [address] 21464- 8512 May, [place] [id number] [place] [address] 08314- 7670 Apr, [place] [id number] [place] [address] 68481- 8995 Apr, [facility] [address] [id number] [place] [address]- 5660 Mar, [facility] [address] [id number] [place] [address] Mar, [facility] [address] [id number] [place] [address]- 0317 Oct, [facility] [address] [id number] [place] [address]- 2808 August, [facility] [address] [id number] [place] [address]- 7523 August, [facility] [address] [id number] [place] [address]- 3869 August, [facility] [address] [id number] [place] [address]- 5086 August, [facility] [address] [id number] [place] [address]- 8158 August, [facility] [address] [id number] [place] [address]- 8583 Sep, [facility] [address] [id number] [place] [address]- 0959 August, [facility] [address] [id number] [place] [address]- 5112 Jun, [facility] [address] [id number] [place] [address]- 8421 Feb, [facility] [address] [id number] [place] [address]- 8073 Jan, [facility] [address] [id number] [place] [address]- 1626 May, [facility] [address] [id number] [place] [address]- 9752 Mar, [facility] [address] [id number] [place] [address]- 2546 Mar, [facility] [address] [facility] [id number] [place] [address]- 2546 Mar, [facility] [address] [facility] [id number] [address]- 2546 Mar, [facility] [address] [facility] [id number], [place] [address]- 2546 Mar, IMMUNIZATIONS No Known Immunizations SOCIAL HISTORY Never Assessed REASON FOR VISIT hydrocodone 04/28 PLAN OF CARE VITAL SIGNS MEDICATIONS Medication Instructions Dosage Frequency Start Date End Date Duration Status Hydrocodone-Acetaminophen 7.5-325 MG Orally 3 times a day 1 tablet 8h Apr, 28 days Active RESULTS No Results PROCEDURES No Known procedures INSTRUCTIONS MEDICATIONS ADMINISTERED No Known Medications MEDICAL (GENERAL) HISTORY Type Description Date Medical History plantar fasc Medical History gestational diabetes Surgical History Cyst Removal Surgical History Foot Surgery 2014 Surgical History c-sectionsx 2 2016 Hospitalization History Surgery/childbirth
--- OUTSIDE RECORDS SUMMARY | 2018-06-19 20:22 | XMS REPORT ---
Author Author CALI STEVENS Organization [facility] Address [address] [place] [address] Care Team Providers Care Group Director Name Role Phone CALI STEVENS Unavailable PROBLEMS Type Condition ICD9-CM Code [id number] Code Onset Dates Condition Status SNOMED Code Problem Mood disorder F39 Active 34677257 Problem Tarsal tunnel syndrome of right side G57.51 Active 53857046 Problem Tendonitis M77.9 Active 71548828 Problem Plantar fasciitis, bilateral M72.2 Active 847962151 ALLERGIES No Known Allergies ENCOUNTERS Encounter Location Date Diagnosis [place] [id number] [address] August, Plantar fasciitis, bilateral M72.2 [facility] [address] [address] August, Plantar fasciitis, bilateral M72.2 [facility] [address] [address] August, Acute cystitis without hematuria N30.00 and Dysuria R30.0 [facility] [address] [address] August, [facility] [address] [address] Jul, Right hand pain M79.641 and Encounter for immunization Z23 [facility] [address] [address] Jul, Right hand pain M79.641 and Encounter for immunization Z23 [facility] [address] [address] Jul, Mood disorder F39 ; Tarsal tunnel syndrome of right side G57.51 and Plantar fasciitis of left foot M72.2 [facility] [address] [place] [id number] [place] [address] Jul, Abscess of right breast N61.1 [facility] [address] [place] [id number] [place] [address] Jun, [facility] [address] [address] Jun, Plantar fasciitis, bilateral M72.2 [facility] [address] [place] [id number] [place] [address] Apr, Plantar fasciitis, bilateral M72.2 and Tendonitis M77.9 [facility] [address] [place] [id number] [place] [address] Apr, Plantar fasciitis, bilateral M72.2 [facility] [address] [address] Apr, [facility] [address] [place] [id number] [place] [address] Mar, Plantar fasciitis, bilateral M72.2 [facility] [address] [place] [id number] [place] [address] Mar, Plantar fasciitis, bilateral M72.2 [facility] [address] [place] [id number] [place] [address] Mar, Pain of right breast N64.4 [facility] [address] [place] [id number] [place] [address] Feb, Plantar fasciitis, bilateral M72.2 [facility] [address] [address] Feb, Posterior tibial tendonitis of right leg M76.821 [facility] [address] [place] [id number] [place] [address] Jan, Plantar fasciitis, bilateral M72.2 [facility] [address] [place] [id number] [address] Dec, Plantar fasciitis, bilateral M72.2 [facility] [address] [address] Nov, Plantar fasciitis, bilateral M72.2 and Tendonitis M77.9 [facility] [id number] [place] [address] Nov, [facility] [address] [address] Nov, [facility] [address] [place] [id number] [place] [address] Nov, [facility] [address] [address] Nov, [facility] [address] [place] [id number] [place] [address] Nov, [facility] [address] [address] Oct, [facility] [address] [address] Oct, [facility] [address] [address] Sep, Plantar fasciitis, bilateral M72.2 and Tendonitis M77.9 [facility] [address] [address] August, Plantar fasciitis, bilateral M72.2 [facility] [address] [address] August, Plantar fasciitis, bilateral M72.2 and Screening cholesterol level Z13.220 [facility] [address] [address] Jun, Other viral agents as the cause of diseases classified elsewhere B97.89 and Acute upper respiratory infection, unspecified J06.9 [facility] [address] [place] [id number] [place] [address] 16 May, 2016 Bronchitis J40 and Vaginal yeast infection B37.3 [facility] [address] [place] [id number] [place] [address] Feb, Arm pain, right M79.601 [facility] [place] [address] [place] [id number] [place] [address] Jan, Tinea corporis B35.4 [place] [address] [place] [id number] [place] [address] Nov, Plantar fasciitis, bilateral M72.2 [facility] [place] [address] [place] [id number] [place] [address] 18 Aug, 2015 Bacterial conjunctivitis of left eye H10.9 [facility] [place] [address] [place] [id number] [place] [address] August, Viral conjunctivitis of left eye B30.9 [place] [address] [place] [id number] [place] [address] 03 May, 2015 Dental examination Z01.20 [place] [address] [place] [id number] [place] [address] 14 Jul, 2014 [place] [address] [place] [id number] [place] [address] Jul, [place] [address] [place] [id number] [place] [address] 14 May, 2013 [place] [address] [place] [id number] [place] [address] May, [place] [address] [place] [id number] [place] [address] Apr, [place] [address] [place] [id number] [place] [address] Apr, [place] [address] [id number] [place] [address] Mar, [facility] [address] [id number] [place] [address] Mar, [facility] [address] [id number] [place] [address] Oct, [facility] [address] [id number] [place] [address] August, [facility] [address] [id number] [place] [address] August, [facility] [address] [id number] [place] [address] August, [facility] [address] [id number] [place] [address] August, [facility] [address] [id number] [place] [address] August, [facility] [address] [id number] [place] [address] Sep, [facility] [address] [id number] [place] [address] August, [facility] [address] [id number] [place] [address] Jun, [facility] [address] [id number] [place] [address] Feb, [facility] [address] [id number] [place] [address]- [address] Jan, [facility] [place] [facility] [address] [id number] [place] [address] May, [facility] [address] [id number] [place] [address] Mar, [facility] [address] [id number] [address] Mar, [facility] [address] [facility] [id number] [place] [address] Mar, [facility] [address] [facility] [id number] [place] [address] Mar, [facility] [address] [facility] [id number] [place] [address] Mar, IMMUNIZATIONS No Known Immunizations SOCIAL HISTORY Never Assessed REASON FOR VISIT Transition of Care-Reginald BAUMANN PLAN OF CARE VITAL SIGNS Height 67 in 2017-05-12 Weight 236.0 lbs 2017-05-12 Temperature 98.3 degrees Fahrenheit 2017-05-12 Heart Rate 62 bpm 2017-05-12 Respiratory Rate 18 2017-05-12 BMI 36.96 kg/m2 2017-05-12 Blood pressure systolic 130 mmHg 2017-05-12 Blood pressure diastolic 78 mmHg 2017-05-12 MEDICATIONS Medication Instructions Dosage Frequency Start Date End Date Duration Status Hydrocodone-Acetaminophen 7.5-325 MG Orally 3 times a day 1 tablet 8h Apr, 28 days Active Gabapentin 300 MG Orally Three times a day 1 capsule 8h 30 Active RESULTS No Results PROCEDURES No Known procedures INSTRUCTIONS MEDICATIONS ADMINISTERED No Known Medications MEDICAL (GENERAL) HISTORY Type Description Date Medical History plantar fasc Medical History gestational diabetes Surgical History Cyst Removal Surgical History Foot Surgery 2013 Surgical History c-sectionsx 2 2016 Hospitalization History Surgery/childbirth
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
--- NOTE | 2018-06-19 20:29 | ED Lower Extremity ---
General Stated Complaint: LEFT FOOT INJ Source: patient Exam Limitations: no limitations History of Present Illness Date Seen by Provider: Jun 19, 2018 Time Seen by Provider: 20:26 Initial Comments To ER with reports of left foot injury. This occurred one week ago when she fell at work inverting the ankle. The pain is over the medial aspect of the ankle. Onset: last week Severity: moderate Pain/Injury Location: left ankle Method of Injury: twisted Modifying Factors: Worse With Movement Allergies and Home Medications Allergies Coded Allergies: Ric Known Allergies (Verified Allergy, Mild, 07/01/16) Home Medications Docusate Sodium 100 Mg Capsule, 100 MG PO BID PRN for CONSTIPATION-1ST LINE Prescribed by: IVANA PEREZ on 08/09/162000 Hydrocodone Bit/Acetaminophen 1 Each Tablet, 1-2 TAB PO Q4H PRN for PAIN- MODERATE Prescribed by: IVANA PEREZ on 08/09/162000 Ibuprofen 600 Mg Tablet, 600 MG PO Q6H Prescribed by: IVANA PEREZ on 08/09/162000 Pnv95/Ferrous Fumarate/FA 1 Each Tablet, 1 EACH PO DAILY, (Reported) Patient Home Medication List Home Medication List Reviewed: Yes Review of Systems Constitutional: see HPI EENTM: see HPI Respiratory: no symptoms reported Cardiovascular: no symptoms reported Genitourinary: no symptoms reported Musculoskeletal: no symptoms reported Skin: no symptoms reported Psychiatric/Neurological: No Symptoms Reported Past Rbmhvdv-Oixgms-Cpydgh Hx Patient Social History Type Used: Cigarettes Former Smoker, Quit: Jul 01, 2016 Recent Foreign Travel: No Contact w/Someone Who Travel: No Recent Hopitalizations: No Immunizations Up To Date Tetanus Booster (TDap): Unknown Date of Influenza Vaccine: Jan 24, 2016 Seasonal Allergies Seasonal Allergies: No Past Medical History Surgeries: Yes (plantar fasciotomy, removal of ovarian cyst and cyst on sternum ) Section, Orthopedic Respiratory: No Cardiac: No Neurological: No 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 Disorders: Yes 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 Genitourinary: No Gastrointestinal: No Musculoskeletal: No Endocrine: Yes (gestational diabetes) HEENT: No Cancer: No Psychosocial: No Integumentary: No 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) Adverse Reaction/Blood Tranf: No Family Medical History Abdominal aortic aneurysm 19 FATHER Arthritis Cataracts 19 MOTHER Completed stroke 19 FATHER (aunt) Diabetes mellitus 19 FATHER (uncle) Hypercholesterolemia 19 FATHER Hypertension 19 FATHER Myocardial infarction Neoplasm 19 FATHER (aunt) Seizure disorder 19 MOTHER Severe allergy 19 FATHER (dad had surgery, reports being allergic to anesthesia, "they told him he shouldn't have woken up") No Family History of: AIDS Nik's disease Alcoholism Alzheimer's disease Aphasia Asthma Cancer of mouth Cardiovascular disease Colon cancer Congenital disease Congenital heart disease Coronary thrombosis Cystic fibrosis Deafness or hearing loss Dementia Drug abuse Dysphasia Fibrocystic disease of breast Gastroenteritis Glaucoma Headache disorder Infertility Kidney disease Not obtainable due to adoption Osteoporosis Parkinson's disease Prostate cancer Psychosocial problem Respiratory disorder Thyroid disease Tuberculosis Visual disorder No Pertinent Family Hx Physical Exam Vital Signs Capillary Refill : Height, Weight, BMI Height: 5'7.00" Weight: 240lbs. 5.0oz. [id number]; 35.8 BMI Method:Stated General Appearance: WD/WN, no apparent distress HEENT: PERRL/EOMI, normal ENT inspection Neck: non-tender, full range of motion Respiratory: no respiratory distress, no accessory muscle use Hips: bilateral hip non-tender, bilateral hip normal inspection, bilateral hip normal range of motion Legs: bilateral leg non-tender, bilateral leg normal inspection, bilateral leg normal range of motion Knees: bilateral knee non-tender, bilateral knee normal inspection, bilateral knee normal range of motion Ankles: left ankle pain, left ankle soft tissue tenderness, left ankle other ( no swelling or ecchymosis) Feet: bilateral foot non-tender, bilateral foot normal inspection, bilateral foot normal range of motion Neurologic/Psychiatric: alert, normal mood/affect, oriented x 3 Skin: normal color, warm/dry Procedures/Interventions Suture Size: 4-0 Progress/Results/Core Measures Results/Orders My Orders Orders - SARAH MANJARREZ APRN Ankle, Left, 3 Views (06/19/18 20:26) Foot, Left, 3 Views (06/19/18 20:26) Departure Impression Primary Impression: Ankle sprain Disposition: 01 HOME, SELF-CARE Condition: Stable Departure-Patient Inst. Decision time for Depature: 20:42 Referrals: ALICIA MARTIN MD (PCP) Primary Care Physician Patient Instructions: Ankle Sprain (DC) Add. Discharge Instructions: 1. Return to ER for any concerns 2. Follow-up with your doctor next week. Wear the ankle brace as directed. Tylenol Motrin as directed. Work/School Note: Work Release Form Date Seen in the Emergency Department: Jun 21, 2018 Return to Work: Jun 19, 2018 Images Extremities-Lower 1 - Other-See Progress Note SARAH MANJARREZ APRN Jun 19, 2018 20:29
--- NOTE | 2018-06-19 21:04 | Diagnostic Imaging Report ---
INDICATION: Pain status post injury COMPARISON: 04/08/2016. FINDINGS: 3 views of the left ankle were obtained. There is no acute fracture or dislocation. No focal osseous lesions are seen. The surrounding soft tissue structures are unremarkable. There are no radiopaque foreign bodies. IMPRESSION: 1. No acute fracture or dislocation in the left ankle. Dictated by: Dictated on workstation # [id number]
--- NOTE | 2018-06-19 21:04 | Diagnostic Imaging Report ---
INDICATION: Pain status post injury COMPARISON: 04/08/2016. FINDINGS: 3 views of the left foot demonstrate no acute fracture or dislocation. There are no focal osseous lesions. There is no soft tissue swelling. Joint spaces are well maintained. No radiopaque foreign bodies are seen. IMPRESSION: No acute fractures or dislocations of the left foot. Dictated by: Dictated on workstation # [id number]
[2018-06-19 21:10] VITALS: BP 134/82
== END 2018-06-19 21:10 | disposition home or self-care (01) ==
LOC: EDUNIT# 20:10 → ER 20:13
DX: S93.402A Sprain of unspecified ligament of left ankle, initial encounter (principal); Z87.891 Personal history of nicotine dependence; Z98.890 Other specified postprocedural states; Z97.5 Presence of (intrauterine) contraceptive device; Z82.49 Family history of ischemic heart disease and other diseases of the circulatory system; X50.1XXA Overexertion from prolonged static or awkward postures, initial encounter; Y92.59 Other trade areas as the place of occurrence of the external cause; Y99.0 Civilian activity done for income or pay
CPT/HCPCS: 73610; 73630

== ENCOUNTER → 2018-07-03 | Outpatient (CLI) | payer OTHER, MEDICAID ==
--- NOTE | 2018-07-03 20:21 | Diagnostic Imaging Report ---
EXAMINATION: Magnetic resonance imaging of the left ankle without contrast. DATE: July 03, 2018. COMPARISON: Left ankle radiographs June 19, 2018. HISTORY: 28-year-old female, left ankle pain and swelling. TECHNIQUE: Magnetic Resonance Imaging sequences were performed of the ankle without contrast. [< >] FINDINGS: TENDONS AND LIGAMENTS: The Achilles tendon is unremarkable. The posterior flexor tendons - tibialis posterior, flexor digitorum longus, flexor hallucis longus - are intact. There is a short segment longitudinal split tear of the peroneus brevis tendon at the level of the distal fibular tip. The peroneus longus tendon is intact. The anterior extensor tendons - tibialis anterior, extensor hallucis longus and extensor digitorum longus tendons - are intact. The anterior and posterior syndesmotic ligaments are intact. The anterior talofibular, posterior talofibular, calcaneofibular and deltoid ligaments are intact. There is no tear of the plantar fascia. There is a focal area of masslike prominence along the lateral cord of the plantar fascia which measures 6 x 6 x 10 mm in size which most likely relates to a plantar fibroma. This is centered approximately 1.8 cm distal to the plantar fascial calcaneal insertion. JOINTS: The ankle mortise is intact. The subtalar and visualized joints of the mid-foot are intact. BONE: The bones all have normal configuration. The bone marrow signal is within normal limits. Specifically, negative for fracture, osteomyelitis, osteonecrosis, or marrow replacing process. The talar dome is intact. BURSAE AND SOFT TISSUES: There is mild nonspecific edema in the pre-Achilles fat. IMPRESSION: 1. Short segment longitudinal split tear of the peroneus brevis tendon in the region of the distal fibular tip. 2. 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 3. Intact ankle ligaments. 4. No acute fracture, bone contusion, or other bone marrow signal abnormality. Intact talar dome. 5. No joint effusion. Dictated on workstation # [id number]
== END ==
LOC: RAD 14:45
PROVIDERS: ATTEND Orthopaedic Surgery
DX: S96.812A Strain of other specified muscles and tendons at ankle and foot level, left foot, initial encounter (principal); M76.822 Posterior tibial tendinitis, left leg
CPT/HCPCS: 73721

== ENCOUNTER → 2018-07-12 | Outpatient (CLI) | payer OTHER, MEDICAID ==
--- NOTE | 2018-07-12 14:36 | Diagnostic Imaging Report ---
PROCEDURE: US Non-ob pelvis comp/trans. TECHNIQUE: Multiple realtime grayscale images were obtained of the pelvis in various projections endovaginally. Transabdominal imaging was also performed. FINDINGS: Uterus measures 7.8 x 5.0 x 3.4 cm. Endometrium is 5 mm in thickness. There appears to be an IUD in the lower uterine segment near the internal cervical os. No myometrial mass is seen. Right ovary measures 4.4 x 3.1 x 2.4 cm and the left ovary measures 3.4 x 2.6 x 2.7 cm. Both ovaries contain small follicles. There is blood flow to both ovaries. No adnexal mass or free fluid is seen. IMPRESSION: The IUD appears to be low in position in the region of the lower uterine segment and internal cervical os. No other significant abnormality is detected. Dictated by: Dictated on workstation # [id number]
== END ==
LOC: RAD 13:32
PROVIDERS: ATTEND Obstetrics & Gynecology
DX: T83.39XA Other mechanical complication of intrauterine contraceptive device, initial encounter (principal)
CPT/HCPCS: 76830; 76856

== ENCOUNTER 2018-10-02 17:18 | Emergency (ER) | payer OTHER, MEDICAID ==
[~2018-10-02] VITALS: Ht 170.2 cm; Wt 90.7 kg
[2018-10-02] MEDS ORDERED: NAPR-915 PO (17:41)
[2018-10-02] MEDS ORDERED: METH-313 PO (17:41)
--- NOTE | 2018-10-02 17:41 | ED Upper Extremity ---
General Chief Complaint: Upper Extremity Stated Complaint: R SHOULDER PAIN Nursing Triage Note: PT AMB TO TRIAGE WITH COMPLAINT OF RIGHT SHOULDER PAIN. STATES WAS MOVING AN ITEM TODAY AND HURT ARM. Nursing Sepsis Screen: No Definite Risk Source: patient Exam Limitations: no limitations History of Present Illness Date Seen by Provider: Oct 02, 2018 Time Seen by Provider: 17:37 Initial Comments To ER with reports of right outer upper arm pain. This began when she was putting a pool together in her backyard she thinks she "popped something". Onset: just prior to arrival Severity: moderate Pain/Injury Location: right shoulder Method of Injury: unknown Modifying Factors: Worse With Movement Allergies and Home Medications Allergies Coded Allergies: NKANo Known Allergies (Verified Allergy, Mild, 07/01/16) Home Medications Docusate Sodium 100 Mg Capsule, 100 MG PO BID PRN for CONSTIPATION-1ST LINE Prescribed by: IVANA PEREZ on 08/09/162000 Hydrocodone Bit/Acetaminophen 1 Each Tablet, 1-2 TAB PO Q4H PRN for PAIN- MODERATE Prescribed by: IVANA PEREZ on 08/09/162000 Ibuprofen 600 Mg Tablet, 600 MG PO Q6H Prescribed by: IVANA PEREZ on 08/09/162000 Pnv95/Ferrous Fumarate/FA 1 Each Tablet, 1 EACH PO DAILY, (Reported) Patient Home Medication List Home Medication List Reviewed: Yes Review of Systems Constitutional: see HPI EENTM: see HPI Respiratory: no symptoms reported Cardiovascular: no symptoms reported Genitourinary: no symptoms reported Musculoskeletal: see HPI Skin: no symptoms reported Psychiatric/Neurological: No Symptoms Reported Past Dhcyvbi-Xyxwpj-Agnkqt Hx Patient Social History Alcohol Use: Denies Use Recreational Drug Use: No Smoking Status: Current Everyday Smoker Type Used: Cigarettes Former Smoker, Quit: Jul 01, 2016 2nd Hand Smoke Exposure: Yes Recent Foreign Travel: No Contact w/Someone Who Travel: No Recent Infectious Disease Expo: No Recent Hopitalizations: No Immunizations Up To Date Tetanus Booster (TDap): Unknown Date of Influenza Vaccine: Jan 24, 2016 Seasonal Allergies Seasonal Allergies: No Past Medical History Surgeries: Yes (plantar fasciotomy, removal of ovarian cyst and cyst on sternum) Section, Orthopedic Respiratory: No Cardiac: No Neurological: No 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 Disorders: Yes 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 Genitourinary: No Gastrointestinal: No Musculoskeletal: No Endocrine: Yes (gestational diabetes) HEENT: No Cancer: No Psychosocial: No Integumentary: No 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) Adverse Reaction/Blood Tranf: No Family Medical History Abdominal aortic aneurysm 19 FATHER Arthritis Cataracts 19 MOTHER Completed stroke 19 FATHER (aunt) Diabetes mellitus 19 FATHER (uncle) Hypercholesterolemia 19 FATHER Hypertension 19 FATHER Myocardial infarction Neoplasm 19 FATHER (aunt) Seizure disorder 19 MOTHER Severe allergy 19 FATHER (dad had surgery, reports being allergic to anesthesia, "they told him he shouldn't have woken up") No Family History of: AIDS Lisman's disease Alcoholism Alzheimer's disease Aphasia Asthma Cancer of mouth Cardiovascular disease Colon cancer Congenital disease Congenital heart disease Coronary thrombosis Cystic fibrosis Deafness or hearing loss Dementia Drug abuse Dysphasia Fibrocystic disease of breast Gastroenteritis Glaucoma Headache disorder Infertility Kidney disease Not obtainable due to adoption Osteoporosis Parkinson's disease Prostate cancer Psychosocial problem Respiratory disorder Thyroid disease Tuberculosis Visual disorder No Pertinent Family Hx Physical Exam Vital Signs Vital Signs - First Documented 10/02/18 17:20 Temp 98.0 Pulse 67 Resp 16 B/P (MAP) 118/78 (91) Pulse Ox 98 O2 Delivery Room Air Capillary Refill : Less Than 3 Seconds Height, Weight, BMI Height: 5'7.00" Weight: 200lbs. 5.0oz. 90.269668uw; 35.8 BMI Method:Stated General Appearance: WD/WN, no apparent distress HEENT: PERRL/EOMI, normal ENT inspection Respiratory: no respiratory distress, no accessory muscle use Shoulder: normal inspection, non-tender, limited ROM Elbow/Forearm: normal inspection, non-tender Wrist: Yes normal inspection, Yes non-tender Hand: normal inspection, non-tender, no evidence of injury Neurologic/Psychiatric: alert, normal mood/affect, oriented x 3 Skin: normal color, warm/dry Procedures/Interventions Suture Size: 4-0 Progress/Results/Core Measures Results/Orders My Orders Orders - SARAH MANJARREZ APRN Ketorolac Injection (Toradol Injection) (10/02/18 17:45) Vital Signs/I&O 10/02/18 17:20 Temp 98.0 Pulse 67 Resp 16 B/P (MAP) 118/78 (91) Pulse Ox 98 O2 Delivery Room Air Blood Pressure Mean: 91 Departure Impression Primary Impression: Rotator cuff (capsule) sprain Qualified Codes: S43.421A - Sprain of right rotator cuff capsule, initial encounter Disposition: HOME, SELF-CARE Condition: Stable Departure-Patient Inst. Decision time for Depature: 17:39 Referrals: ALICIA MARTIN MD (PCP/Family) Primary Care Physician Patient Instructions: Shoulder Sprain Add. Discharge Instructions: 1. Return to ER for any concerns 2. Follow up with your doctor next week for recheck. All discharge instructions reviewed with patient and/or family. Voiced understanding. Scripts Naproxen (Naproxen) 500 Mg Tablet 500 MG PO Q12H for Renal Colic for 3 Days, #20 TAB Prov: SARAH MANJARREZ PROJECT ADMINISTRATIVE ASSISTANT 10/02/18 Methocarbamol (Robaxin-750) 750 Mg Tablet 750 MG PO Q4H, #10 TAB Prov: SARAH MANJARREZ PROJECT ADMINISTRATIVE ASSISTANT 10/02/18 SARAH MANJARREZ PROJECT ADMINISTRATIVE ASSISTANT Oct 02, 2018 17:41
[2018-10-02] MEDS ORDERED: KETOROLAC 30 MG/ML VIAL IM ONE (17:45)
[2018-10-02 17:49] VITALS: BP 118/78
== END 2018-10-02 17:49 | disposition home or self-care (01) ==
LOC: EDUNIT# 17:18 → ER 17:19
DX: S43.421A Sprain of right rotator cuff capsule, initial encounter (principal); Z87.891 Personal history of nicotine dependence; Z98.890 Other specified postprocedural states; Z90.89 Acquired absence of other organs; Z97.5 Presence of (intrauterine) contraceptive device; Z87.448 Personal history of other diseases of urinary system; Z82.49 Family history of ischemic heart disease and other diseases of the circulatory system; X50.9XXA Other and unspecified overexertion or strenuous movements or postures, initial encounter; Y92.007 Garden or yard of unspecified non-institutional (private) residence as the place of occurrence of the external cause
CPT/HCPCS: 96372; 99284

== ENCOUNTER → 2020-06-13 | Outpatient (CLI) | payer BC, MEDICAID ==
[~2020-06-13] VITALS: Ht 167.6 cm; Wt 96.4 kg
[~2020-06-13] MED LIST changes: +CATHETER FLUSH 10 ML SYR IV PRN; -CIPR500T4 PO; +CIPR500T5 PO; +GADOBUTROL 7.5 MMOL/7.5 ML (GADAVIST) VIAL IV ONE; +IOHEXOL 300 MG/ML 50 ML (OMNIPAQUE 300) VIAL IV ONE; +METH-313 PO; +NAPR-915 PO
--- NOTE | 2020-06-13 15:27 | Diagnostic Imaging Report ---
INDICATION: Left shoulder pain. The patient was brought to the procedure room and placed on the table in the supine position. Skin over the left shoulder was prepped and draped in the usual sterile fashion. A small amount of 1% lidocaine was utilized for local anesthesia. A 22-gauge needle was advanced and placed with its tip at the rotator interval of the left shoulder. A 15 mL solution of iodinated contrast, normal saline and gadolinium was injected under fluoroscopic observation. 18 seconds of fluoroscopic time was utilized. The needle was removed and hemostasis was obtained. The patient tolerated the procedure well was sent to MRI in satisfactory condition. IMPRESSION: Successful left shoulder injection of gadolinium contrast solution, using fluoroscopy. Dictated by: Dictated on workstation # [id number]
--- NOTE | 2020-06-13 19:22 | Diagnostic Imaging Report ---
EXAMINATION: Magnetic resonance imaging of the left shoulder with intra-articular contrast. DATE: June 13, 2020. COMPARISON: Left shoulder arthrogram June 13, 2020. HISTORY: 30-year-old female, left shoulder pain. Evaluation for superior labral tear. TECHNIQUE: Magnetic Resonance Imaging sequences were performed of the shoulder following the intra-articular administration of contrast. FINDINGS: ROTATOR CUFF, LIGAMENTS, TENDONS, AND MUSCLES: The supraspinatus, infraspinatus, teres minor, and subscapularis tendons and muscles are intact. There is normal rotator cuff muscle bulk and signal. LONG HEAD OF BICEPS: The biceps labral attachment and long head of the biceps tendon is intact. The long head of the biceps tendon is normally positioned within the bicipital groove. GLENOHUMERAL JOINT: The humeral head is approximately 50% posteriorly subluxed relative to the glenoid. The humeral head is directly contacting the posterior glenoid on axial sequence image 14. There is asymmetric widening of the anterior aspect of the glenohumeral joint. There is no identified labral tear. There is no identified paralabral cyst. The articular cartilage is grossly intact. There is no intrajugular body or prominent synovitis. The anterior and posterior bands of the inferior glenohumeral ligament complex appear intact. ACROMIOCLAVICULAR JOINT: The acromioclavicular joint is normally aligned. The coracoclavicular and coracoacromial ligaments are intact. There are no degenerative changes of the acromioclavicular joint. BONE: There is no Hill-Sachs deformity. There is no os acromiale. There is no acute fracture, bone contusion or evidence of osteonecrosis. There is a lobulated T2 hyperintense lesion in the proximal humeral metaphysis measuring approximately 8 x 4 mm in size most likely reflecting a benign enchondroma. BURSAE AND SOFT TISSUES: The bursae and soft tissue surrounding the shoulder are unremarkable. IMPRESSION: 1. Humeral head is approximately 50% posteriorly subluxed relative to the glenoid and contacts the posterior glenoid. 2. No identified labral tear. The inferior glenohumeral ligament complex appears intact. 3. No identified glenohumeral cartilage defect. 4. No Hill-Sachs deformity. No acute fracture or bone contusion. 5. Intact rotator cuff tendons and proximal long head of the biceps tendon. 6. Intact acromioclavicular joint. Dictated by: Dictated on workstation # [id number]
== END ==
LOC: RAD 12:19
PROVIDERS: ATTEND Nurse Practitioner
DX: S43.432A Superior glenoid labrum lesion of left shoulder, initial encounter (principal); M75.42 Impingement syndrome of left shoulder
CPT/HCPCS: 23350; 73040; 73222

== ENCOUNTER 2021-05-01 19:50 | Emergency (ER) | payer BC, MEDICAID ==
[~2021-05-01] VITALS: Ht 175.2 cm; Wt 95.2 kg
[~2021-05-01 19:50] MED LIST changes: -CATHETER FLUSH 10 ML SYR IV PRN; -GADOBUTROL 7.5 MMOL/7.5 ML (GADAVIST) VIAL IV ONE; -IOHEXOL 300 MG/ML 50 ML (OMNIPAQUE 300) VIAL IV ONE; -SULF1TAB35 PO
--- NOTE | 2021-05-01 20:24 | ED General ---
General Chief Complaint: Allergic Reaction Stated Complaint: RASH,HIVES Nursing Triage Note: HIVES BILAT ARMS AND LEGS. 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 NO MEDICATIONS TAKEN. VSS. Source of Information: Patient Exam Limitations: No Limitations History of Present Illness Date Seen by Provider: May 01, 2021 Time Seen by Provider: 20:22 Initial Comments Patient is a 31-year-old female presents ED with allergic reaction. This started within the past hour. She states she started feeling itchy before she took a warm shower. Broke out with diffuse hives when she got out. She reports diffuse itching. No clear etiology. She denies of any change of medication, soaps, laundry detergents, food. She denies any difficulty breathing, sore throat, sloughing of the skin, headache, dizziness, visual changes. Patient with a diffuse erythematous edematous rash. No acute distress. Denies any fever, recent URI. No urinary symptoms. Allergies and Home Medications Allergies Coded Allergies: TRICEANo Known Allergies (Verified Allergy, Mild, 07/01/16) Patient Home Medication List Home Medication List Reviewed: Yes Docusate Sodium (Docusate Sodium) 100 Mg Capsule, 100 MG PO BID PRN for CONSTIPATION-1ST LINE Prescribed by: IVANA PEREZ on 08/09/162000 Hydrocodone Bit/Acetaminophen (Lortab 5 Mg Tablet) 1 Each Tablet, 1-2 TAB PO Q4H PRN for PAIN-MODERATE Prescribed by: IVANA PEREZ on 08/09/162000 Ibuprofen (Ibuprofen) 600 Mg Tablet, 600 MG PO Q6H Prescribed by: IVANA PEREZ on 08/09/162000 Methocarbamol (Robaxin-750) 750 Mg Tablet, 750 MG PO Q4H Prescribed by: SARAH MANJARREZ on 10/02/181740 Naproxen (Naproxen) 500 Mg Tablet, 500 MG PO Q12H Prescribed by: SARAH MANJARREZ on 10/02/181740 Pnv95/Ferrous Fumarate/FA ( Caplet) 1 Each Tablet, 1 EACH PO DAILY, (Reported) Entered as Reported by: SEAN BERNARD on 04/06/162144 Prednisone (Prednisone) 50 Mg Tab, 50 MG PO DAILY Prescribed by: ARMAND MCARTHUR on 05/01/212115 Review of Systems Review of Systems Constitutional: No chills, No diaphoresis, No dizziness, No fever EENTM: No hearing loss Respiratory: No cough, No orthopnea, No short of breath Gastrointestinal: No abdominal pain, No diarrhea, No nausea, No vomiting Genitourinary: No dysuria, No frequency Musculoskeletal: No back pain, No gout, No joint pain Skin: pruritus, rash All Other Systems Reviewed Negative Unless Noted: Yes Past Ulrzzbk-Qkunck-Tbovzp Hx Immunizations Up To Date Tetanus Booster (TDap): Unknown Seasonal Allergies Seasonal Allergies: No Past Medical History Surgeries: Yes (plantar fasciotomy, removal of ovarian cyst and cyst on sternum) Section, Orthopedic Respiratory: No Cardiac: No Neurological: No 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 Disorders: Yes Female 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 Genitourinary: No Gastrointestinal: No Musculoskeletal: No Endocrine: Yes (gestational diabetes) HEENT: No Cancer: No Psychosocial: No Integumentary: No 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) Adverse Reaction/Blood Tranf: No Family Medical History Abdominal aortic aneurysm 19 FATHER Arthritis Cataracts 19 MOTHER Completed stroke 19 FATHER (aunt) Diabetes mellitus 19 FATHER (uncle) Hypercholesterolemia 19 FATHER Hypertension 19 FATHER Myocardial infarction Neoplasm 19 FATHER (aunt) Seizure disorder 19 MOTHER Severe allergy 19 FATHER (dad had surgery, reports being allergic to anesthesia, "they told him he shouldn't have woken up") No Family History of: AIDS [place]'s disease Alcoholism Alzheimer's disease Aphasia Asthma Cancer of mouth Cardiovascular disease Colon cancer Congenital disease Congenital heart disease Coronary thrombosis Cystic fibrosis Deafness or hearing loss Dementia Drug abuse Dysphasia Fibrocystic disease of breast Gastroenteritis Glaucoma Headache disorder Infertility Kidney disease Not obtainable due to adoption Osteoporosis Parkinson's disease Prostate cancer Psychosocial problem Respiratory disorder Thyroid disease Tuberculosis Visual disorder No Pertinent Family Hx Physical Exam Vital Signs Vital Signs - First Documented 05/01/21 20:02 Temp 36.4 Pulse 76 Resp 18 B/P (MAP) 143/83 (103) Pulse Ox 98 O2 Delivery Room Air Capillary Refill : Less Than 3 Seconds Height, Weight, BMI Height: 5'7.00" Weight: 200lbs. 5.0oz. 90.409126ip; 31.00 BMI Method:Stated General Appearance: No Apparent Distress, WD/WN Eyes: Bilateral Eye Normal Inspection, Bilateral Eye PERRL, Bilateral Eye EOMI HEENT: PERRL/EOMI, TMs Normal, Normal ENT Inspection, Pharynx Normal Neck: Full Range of Motion, Non Tender, Supple Respiratory: Chest Non Tender, Lungs Clear, Normal Breath Sounds, No Accessory Muscle Use Cardiovascular: Regular Rate, Rhythm, No Edema, No Gallop, No JVD, No Murmur Gastrointestinal: Normal Bowel Sounds, No Organomegaly, No Pulsatile Mass, Non Tender Skin: Other (Diffuse papular, macular edematous and erythematous rash. No sloughing of skin. No pustules.) Procedures/Interventions Suture Size: 4-0 Progress/Results/Core Measures Suspected Sepsis SIRS Temperature: Pulse: 76 Respiratory Rate: 18 Blood Pressure 143 /83 Mean: 103 Results/Orders My Orders Orders - HYUN DEJESUS Diphenhydramine Injection (Benadryl Inje (05/01/21 20:30) Famotidine Injection (Pepcid Injection) (05/01/21 20:30) Methylprednisolone Sod Succ (Solu-Medrol (05/01/21 20:30) Medications Given in ED Current Medications Medications Dose Ordered Sig/Pablo Route Start Time Stop Time Status Last Admin Dose Admin Diphenhydramine HCl 25 mg ONCE ONCE IVP 05/01/21 20:30 05/01/21 20:31 DC 05/01/21 20:30 25 MG Famotidine 40 mg ONCE ONCE IVP 05/01/21 20:30 05/01/21 20:31 DC 05/01/21 20:30 40 MG Methylprednisolone Sodium Succinate 125 mg ONCE ONCE IVP 05/01/21 20:30 05/01/21 20:31 DC 05/01/21 20:31 125 MG Vital Signs/I&O 05/01/21 20:02 Temp 36.4 Pulse 76 Resp 18 B/P (MAP) 143/83 (103) Pulse Ox 98 O2 Delivery Room Air Capillary Refill : Less Than 3 Seconds Blood Pressure Mean: 103 Departure Communication (PCP) Patient presents ED with diffuse rash. Erythematous edematous. Patient appears to be having allergic reaction to some substance. She denies of any changes at home such as soap, laundry detergent, fragrances, food. No sloughing of the skin. No oral lesions. No difficulty breathing. Vital signs stable. Was give n a dose of Solu-Medrol, Pepcid and Benadryl with complete resolution of symptoms. Patient feeling much better at this time and request to be discharged. Patient was given short burst steroids if symptoms progress. Continue with Benadryl at home. If any worsening symptoms return back to ED for further evaluation. Impression Primary Impression: Allergic reaction Disposition: HOME, SELF-CARE Condition: Stable Departure-Patient Inst. Decision time for Depature: 21:15 Referrals: ALICIA MARTIN MD (PCP/Family) Primary Care Physician Patient Instructions: Allergic Reaction ED Add. Discharge Instructions: Recommend continue Benadryl 25 mg every 4-6 hours for itching All discharge instructions reviewed with patient and/or family. Voiced understanding. Scripts Prednisone (Prednisone) 50 Mg Tab 50 MG PO DAILY for 5 Days, #5 TAB Prov: HYUN DEJESUS 05/01/21 HYUN DEJESUS May 01, 2021 20:23
[2021-05-01] MEDS ORDERED: diphenhydrAMINE 50 MG/ML INJ (BENADRYL) IVP ONE (20:30)
[2021-05-01] MEDS ORDERED: FAMOTIDINE 20MG/2ML IV (PEPCID) IVP ONE (20:30)
[2021-05-01] MEDS ORDERED: methylPREDNISolone 125 MG (Solu-MEDROL) VIAL IVP ONE (20:30)
[2021-05-01] MEDS ORDERED: PRD50T PO (21:16)
[2021-05-01 21:37] VITALS: BP 143/82
== END 2021-05-01 21:36 | disposition home or self-care (01) ==
LOC: EDUNIT# 19:50 → ER 19:55
DX: T78.40XA Allergy, unspecified, initial encounter (principal)

== ENCOUNTER 2021-06-13 03:23 | Emergency (ER) | payer BC, MEDICAID ==
[~2021-06-13 03:23] MED LIST changes: +PRD50T PO
--- NOTE | 2021-06-13 06:56 | ED Integumentary General ---
General Chief Complaint: Skin/Wound Problems Stated Complaint: ABSCESS ON LEFT BUTT CHEEK Nursing Triage Note: TO ED VIA POV AND AMBULATORY TO ROOM 8 WITH C/O ABSCESS TO LEFT BUTTOCKS. Source: patient Exam Limitations: no limitations History of Present Illness Date Seen by Provider: Jun 13, 2021 Time Seen by Provider: 06:36 Initial Comments Patient to the ER by private conveyance chief complaint of 1 to 2 days with abscess starting up on her left buttock. She says she gets these occasionally. She would like it lanced and some antibiotics. No history of diabetes. No allergies to medications. Allergies and Home Medications Allergies Coded Allergies: Ric Known Allergies (Verified Allergy, Mild, 07/01/16) Patient Home Medication List Home Medication List Reviewed: Yes Docusate Sodium (Docusate Sodium) 100 Mg Capsule, 100 MG PO BID PRN for CONSTIPATION-1ST LINE Prescribed by: IVANA PEREZ on 08/09/162000 Hydrocodone Bit/Acetaminophen (Lortab 5 Mg Tablet) 1 Each Tablet, 1-2 TAB PO Q4H PRN for PAIN-MODERATE Prescribed by: IVANA PEREZ on 08/09/162000 Ibuprofen (Ibuprofen) 600 Mg Tablet, 600 MG PO Q6H Prescribed by: IVANA PEREZ on 08/09/162000 Methocarbamol (Robaxin-750) 750 Mg Tablet, 750 MG PO Q4H Prescribed by: SARAH MANJARREZ on 10/02/181740 Naproxen (Naproxen) 500 Mg Tablet, 500 MG PO Q12H Prescribed by: SARAH MANJARREZ on 10/02/181740 Pnv95/Ferrous Fumarate/FA ( Caplet) 1 Each Tablet, 1 EACH PO DAILY, (Reported) Entered as Reported by: SEAN BERNARD on 04/06/162144 Prednisone (Prednisone) 50 Mg Tab, 50 MG PO DAILY Prescribed by: ARMAND MCARTHUR on 05/01/212115 Review of Systems Review of Systems Constitutional: No chills, No diaphoresis, No fever EENTM: No ear discharge, No hearing loss Respiratory: No cough, No short of breath Cardiovascular: No edema, No Hx of Intervention, No palpitations Gastrointestinal: No abdominal pain, No constipation, No diarrhea Genitourinary: No discharge, No dysuria Skin: change in color, lesions All Other Systems Reviewed Negative Unless Noted: Yes Past Kaglwxr-Osoztd-Sjqaxz Hx Patient Social History Tobacco Use?: Yes Tobacco type used: Cigarettes Smoking Status: Current Everyday Smoker Substance use?: No Alcohol Use?: No Immunizations Up To Date Tetanus Booster (TDap): Unknown First/Initial COVID19 Vaccinat: JUNE 2020 Second COVID19 Vaccination Ron: JULY 2020 COVID19 Vaccine Educational Psychology Teacher: MODERNA Seasonal Allergies Seasonal Allergies: No Past Medical History Surgeries: Yes (plantar fasciotomy, removal of ovarian cyst and cyst on sternum ) Section, Orthopedic Respiratory: No Cardiac: No Neurological: No 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 Disorders: Yes Female 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 Genitourinary: No Gastrointestinal: No Musculoskeletal: No Endocrine: Yes (gestational diabetes) HEENT: No Cancer: No Psychosocial: No Integumentary: No 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) Adverse Reaction/Blood Tranf: No Family Medical History Abdominal aortic aneurysm 19 FATHER Arthritis Cataracts 19 MOTHER Completed stroke 19 FATHER (aunt) Diabetes mellitus 19 FATHER (uncle) Hypercholesterolemia 19 FATHER Hypertension 19 FATHER Myocardial infarction Neoplasm 19 FATHER (aunt) Seizure disorder 19 MOTHER Severe allergy 19 FATHER (dad had surgery, reports being allergic to anesthesia, "they told him he shouldn't have woken up") No Family History of: AIDS Nik's disease Alcoholism Alzheimer's disease Aphasia Asthma Cancer of mouth Cardiovascular disease Colon cancer Congenital disease Congenital heart disease Coronary thrombosis Cystic fibrosis Deafness or hearing loss Dementia Drug abuse Dysphasia Fibrocystic disease of breast Gastroenteritis Glaucoma Headache disorder Infertility Kidney disease Not obtainable due to adoption Osteoporosis Parkinson's disease Prostate cancer Psychosocial problem Respiratory disorder Thyroid disease Tuberculosis Visual disorder No Pertinent Family Hx Physical Exam Vital Signs Vital Signs - First Documented 06/13/21 04:22 Temp 36.6 Pulse 90 Resp 16 B/P (MAP) 124/84 (97) Pulse Ox 100 O2 Delivery Room Air Capillary Refill : Less Than 3 Seconds General Appearance: WD/WN, no apparent distress HEENT: PERRL/EOMI, TMs normal, pharynx normal Neck: full range of motion, supple, normal inspection Cardiovascular: normal peripheral pulses, regular rate, rhythm, no edema Respiratory: no respiratory distress, no accessory muscle use Skin: other (Erythematous indurated area over the left buttock with pointing but no discharge.) Procedures/Interventions I&D : Site: Left buttock Blade Size: 11 I & D Procedure: betadine prep Progress Site was cleaned with chlorhexidine and alcohol. Infiltrated with 2 cc 1% lidocaine without epinephrine. The patient was well anesthetized so we made a 3 x 4 mm crosswise incision using an 11 blade scalpel and retrieved about 40 cc of thin, malodorous purulent material. Suture Size: 4-0 Progress/Results/Core Measures Results/Orders Vital Signs/I&O 06/13/21 04:22 Temp 36.6 Pulse 90 Resp 16 B/P (MAP) 124/84 (97) Pulse Ox 100 O2 Delivery Room Air Blood Pressure Mean: 97 Departure Impression Primary Impression: Abscess Disposition: HOME, SELF-CARE Condition: Stable Departure-Patient Inst. Decision time for Depature: 07:03 Referrals: ALICIA MARTIN MD (PCP/Family) Primary Care Physician Patient Instructions: Abscess Incision and Drainage (DC) Add. Discharge Instructions: Keep the wound clean with regular soap and water. Do not plug it with Vaseline or triple antibiotic ointment. Loose dry gauze to catch the drainage change as often as necessary. Wound should seal up in about a day or 2. Try and express anything at that you can. Take Bactrim 1 tablet twice a day with food for the next 10 days to prevent rec urrence. If you have recurrent abscess, fever or other worrisome symptoms then return to the doctor for reevaluation All discharge instructions reviewed with patient and/or family. Voiced understanding. Scripts Sulfamethoxazole/Trimethoprim (Bactrim Ds Tablet) 1 Each Tablet 1 EACH PO BID for 10 Days, #20 TAB 0 Refills Prov: SHWETHA PAREDES 06/13/21 SHWETHA PAREDES Jun 13, 2021 06:56
[2021-06-13] MEDS ORDERED: SULF1TAB38 PO (07:04)
[2021-06-13 07:08] VITALS: BP 124/86
== END 2021-06-13 07:08 | disposition home or self-care (01) ==
LOC: EDUNIT# 03:23 → ER 03:27
DX: L02.31 Cutaneous abscess of buttock (principal); F17.210 Nicotine dependence, cigarettes, uncomplicated

== ENCOUNTER 2021-12-01 15:16 | Emergency (ER) | payer BC, MEDICAID ==
[~2021-12-01] VITALS: Ht 172 cm; Wt 95.2 kg
--- NOTE | 2021-12-01 15:54 | ED General ---
General Chief Complaint: General Problems/Pain Stated Complaint: NECK PAIN, CHILLS, HEADACHE, DIZZINESS Nursing Triage Note: PT AMB TO RM 9 WITH CC OF R SIDED NECK PAIN, CHILLS, DIZZINESS, PATRICIA SINCE 11/27/21. PT REPORTS WENT TO [facility] 2 DAYS AGO, TESTED NEGATIVE FOR COVID AND STREP. PT STATES HURTS TO SWALLOW. Source of Information: Patient Exam Limitations: No Limitations History of Present Illness Date Seen by Provider: Dec 01, 2021 Time Seen by Provider: 15:51 Initial Comments Patient is a 31-year-old female presents ED with throat pain, neck pain, chills fatigue weakness. Symptoms started 2 days ago. She reports pain with swallowing. She states she has some neck discomfort to the anterior part of her neck with swollen lymph nodes. Denies of any ear pain, nasal congestion, sinus pressure or headache. No cough, vomiting, diarrhea, abdominal pain. She states she was swabbed 2 days ago for COVID which was negative. Denies of any urinary symptoms or known fever at home. Denies take any medication at home. She states she has been working outside. She has no increasing pain with neck movement. Denies drug use or weight loss, dizziness, visual changes Allergies and Home Medications Allergies Coded Allergies: NKANo Known Allergies (Verified Allergy, Mild, 07/01/16) Patient Home Medication List Home Medication List Reviewed: Yes Amoxicillin (Amoxicillin) 500 Mg Capsule, 500 MG PO TID Prescribed by: ARMAND MCARTHUR on 12/01/211715 Docusate Sodium (Docusate Sodium) 100 Mg Capsule, 100 MG PO BID PRN for CONSTIPATION-1ST LINE Prescribed by: IVANA PEREZ on 08/09/162000 Hydrocodone Bit/Acetaminophen (Lortab 5 Mg Tablet) 1 Each Tablet, 1-2 TAB PO Q4H PRN for PAIN-MODERATE Prescribed by: IVANA PEREZ on 08/09/162000 Ibuprofen (Ibuprofen) 600 Mg Tablet, 600 MG PO Q6H Prescribed by: IVANA PEREZ on 08/09/162000 Methocarbamol (Robaxin-750) 750 Mg Tablet, 750 MG PO Q4H Prescribed by: SARAH MANJARREZ on 10/02/18 174 Naproxen (Naproxen) 500 Mg Tablet, 500 MG PO Q12H Prescribed by: SARAH MANJARREZ on 10/02/181740 Pnv95/Ferrous Fumarate/FA ( Caplet) 1 Each Tablet, 1 EACH PO DAILY, (Reported) Entered as Reported by: SEAN BERNARD on 04/06/162144 Prednisone (Prednisone) 50 Mg Tab, 50 MG PO DAILY Prescribed by: ARMAND MCARTHUR on 05/01/21 211 Sulfamethoxazole/Trimethoprim (Bactrim Ds Tablet) 1 Each Tablet, 1 EACH PO BID Prescribed by: SHWETHA PAREDES on 06/13/21 0704 Review of Systems Review of Systems Constitutional: chills, weakness EENTM: throat pain; No ear pain, No blurred vision, No double vision Respiratory: No cough Cardiovascular: No chest pain Gastrointestinal: No abdominal pain, No diarrhea, No nausea, No vomiting Genitourinary: No decreased output, No discharge Musculoskeletal: No joint pain Past Fbgnjnd-Cvmsoy-Yclkhw Hx Immunizations Up To Date Tetanus Booster (TDap): Unknown First/Initial COVID19 Vaccinat: JUNE 2020 Second COVID19 Vaccination Ron: JULY 2020 Seasonal Allergies Seasonal Allergies: No Past Medical History Surgeries: Yes (plantar fasciotomy, removal of ovarian cyst and cyst on sternum) Section, Orthopedic Respiratory: No Cardiac: No Neurological: No 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 Disorders: Yes Female 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 Disorders: 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 Genitourinary: No Gastrointestinal: No Musculoskeletal: No Endocrine: Yes (gestational diabetes) HEENT: No Cancer: No Psychosocial: No Integumentary: No 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) Adverse Reaction/Blood Tranf: No Family Medical History Abdominal aortic aneurysm 19 FATHER Arthritis Cataracts 19 MOTHER Completed stroke 19 FATHER (aunt) Diabetes mellitus 19 FATHER (uncle) Hypercholesterolemia 19 FATHER Hypertension 19 FATHER Myocardial infarction Neoplasm 19 FATHER (aunt) Seizure disorder 19 MOTHER Severe allergy 19 FATHER (dad had surgery, reports being allergic to anesthesia, "they told him he shouldn't have woken up") No Family History of: AIDS Williams's disease Alcoholism Alzheimer's disease Aphasia Asthma Cancer of mouth Cardiovascular disease Colon cancer Congenital disease Congenital heart disease Coronary thrombosis Cystic fibrosis Deafness or hearing loss Dementia Drug abuse Dysphasia Fibrocystic disease of breast Gastroenteritis Glaucoma Headache disorder Infertility Kidney disease Not obtainable due to adoption Osteoporosis Parkinson's disease Prostate cancer Psychosocial problem Respiratory disorder Thyroid disease Tuberculosis Visual disorder No Pertinent Family Hx Physical Exam Vital Signs Vital Signs - First Documented 12/01/21 15:29 Temp 37.6 Pulse 101 Resp 14 B/P (MAP) 118/71 (87) Pulse Ox 98 O2 Delivery Room Air Capillary Refill : Less Than 3 Seconds Height, Weight, BMI Height: 5'7.00" Weight: 200lbs. 5.0oz. 90.004139pm; 32.00 BMI Method:Stated General Appearance: No Apparent Distress, WD/WN Eyes: Bilateral Eye Normal Inspection, Bilateral Eye PERRL, Bilateral Eye EOMI HEENT: Other (Oropharynx with erythema and exudate. No uvula deviation. Tolerate secretions. No stridor) Neck: Full Range of Motion, Normal Inspection, Other (Tenderness bilateral cervical mandibular lymphadenopathy. No meningeal signs. No posterior or cervical midline tenderness) Respiratory: Chest Non Tender, Lungs Clear, Normal Breath Sounds, No Accessory Muscle Use Cardiovascular: No No Edema, No No Gallop; Tachycardia Gastrointestinal: Normal Bowel Sounds, No Organomegaly, Soft Back: No CVA Tenderness Neurologic/Psychiatric: Alert, Oriented x3, No Motor/Sensory Deficits, Normal Mood/Affect Skin: Normal Color, Warm/Dry Procedures/Interventions Suture Size: 4-0 Progress/Results/Core Measures Suspected Sepsis SIRS Temperature: Pulse: 101 Respiratory Rate: 14 Blood Pressure 118 /71 Mean: 87 Results/Orders Lab Results Laboratory Tests Test 12/01/21 15:54 12/01/21 16:40 Range/Units Influenza Type A (RT-PCR) Not Detected Not Detecte Influenza Type B (RT-PCR) Not Detected Not Detecte SARS-CoV-2 RNA (RT-PCR) Not Detected Not Detecte Group A Streptococcus Screen NEGATIVE NEGATIVE My Orders Orders - HYUN DEJESUS Covid 19 Inhouse Test (12/01/21 15:42) Influenza A And B By Pcr (12/01/21 15:42) Rapid Strep A Screen (12/01/21 15:50) Ibuprofen Tablet (Motrin Tablet) (12/01/21 16:00) Dexamethasone Oral Soln (Ed) (Decadron I (12/01/21 15:51) Medications Given in ED Current Medications Medications Dose Ordered Sig/Pablo Route Start Time Stop Time Status Last Admin Dose Admin Ibuprofen 800 mg ONCE ONCE PO 12/01/21 16:00 12/01/21 16:01 DC 12/01/21 15:58 800 MG Vital Signs/I&O 8/9/22 8/9/22 15:29 17:20 Temp 37.6 Pulse 101 81 Resp 14 14 B/P (MAP) 118/71 (87) 119/69 Pulse Ox 98 96 O2 Delivery Room Air Room Air Capillary Refill : Less Than 3 Seconds Blood Pressure Mean: 87 Departure Communication (PCP) Oropharynx with erythema, swelling, exudate. No uvula deviation. Tolerate secretions. Cervical adenopathy submandibular lymphadenopathy noted bilateral. By TMs clear. Lung sounds clear bilateral. Denies drug use. No evidence of stridor. Presentation is concerning for strep with swelling and redness with exudate noted bilateral tonsils. Could be viral in nature as well. She states she had negative COVID influenza yesterday. COVID influenza negative here. Discussed potential other etiologies. She states she has had similar symptoms with strep. Discussed conservative treatment at this time. Culture currently pending. If positive patient will have amoxicillin at home. Patient was given Solu-Medrol here in the ED for the throat pain. discussed cool liquids, popsicles, ice cream to help with pain. patient was given ibuprofen for fever. Patient in no acute distress. If any worsening symptoms return back to ED for further evaluation. Provided work note Impression Primary Impression: Pharyngitis Disposition: HOME, SELF-CARE Condition: Stable Departure-Patient Inst. Decision time for Depature: 17:15 Referrals: ALICIA MARTIN MD (PCP) Primary Care Physician Patient Instructions: Sore Throat in Adults Add. Discharge Instructions: Recommend drinking cool fluids. Continue with Tylenol ibuprofen at home. Recommend rest for the next 2 to 3 days. If any worsening symptoms such as unable to tolerate secretions, shortness of breath to return back to the ED All discharge instructions reviewed with patient and/or family. Voiced understanding. Scripts Amoxicillin (Amoxicillin) 500 Mg Capsule 500 MG PO TID for 10 Days, #30 CAP Prov: HYUN DEJESUS 12/01/21 Work/School Note: Work Release Form Date Seen in the Emergency Department: Dec 01, 2021 Return to Work: Dec 04, 2021 HYUN DEJESUS Dec 01, 2021 15:54
[2021-12-01] MEDS ORDERED: IBUPROFEN 800 MG (MOTRIN) TAB PO ONE (16:00)
[2021-12-01] MEDS ORDERED: AMOX500C2 PO (17:16)
[2021-12-01 17:20] VITALS: BP 119/69
== END 2021-12-01 17:20 | disposition home or self-care (01) ==
LOC: EDUNIT# 15:16 → ER 15:19
DX: J02.9 Acute pharyngitis, unspecified (principal); Z20.822 Contact with and (suspected) exposure to COVID-19
CPT/HCPCS: 87430; 87636; 99283

== ENCOUNTER 2021-12-03 03:56 | Emergency (ER) | payer BC, MEDICAID ==
[~2021-12-03] VITALS: Ht 172.7 cm; Wt 95.2 kg
[~2021-12-03 03:56] MED LIST changes: +AMOX500C2 PO
[2021-12-03] MEDS ORDERED: LACTATED RINGERS 1,000 ML IV ONE (05:15)
[2021-12-03 05:31] LABS: BASOPHILS % (AUTO) 0 % (0-10); EOSINOPHILS # (AUTO) 0.1 10^3/uL (0.0-0.3); EOSINOPHILS % (AUTO) 1 % (0-10); HEMATOCRIT 40 % (35-52); HEMOGLOBIN 13.4 g/dL (11.5-16.0); LYMPHOCYTES # (AUTO) 2.4 10^3/uL (1.0-4.0); LYMPHOCYTES % (AUTO) 22 % (12-44); MEAN CORPUSCULAR HEMOGLOBIN 30 pg (25-34); MEAN CORPUSCULAR HGB CONC 33 g/dL (32-36); MEAN CORPUSCULAR VOLUME 91 fL (80-99); MEAN PLATELET VOLUME 10.9 fL (9.0-12.2); MONOCYTES % (AUTO) 9 % (0-12); NEUTROPHILS # (AUTO) 7.6 10^3/uL (1.8-7.8); NEUTROPHILS % (AUTO) 68 % (42-75); PLATELET COUNT 235 10^3/uL (130-400); WHITE BLOOD COUNT 11.2 10^3/uL (4.3-11.0)
[2021-12-03 05:53] LABS: CALCIUM 9.3 MG/DL (8.5-10.1); CREATININE SERUM 0.69 MG/DL (0.60-1.30)
[2021-12-03] MEDS ORDERED: cefTRIAXone 1 GM PRE-MIX 50 ML IV STA (05:58)
[2021-12-03] MEDS ORDERED: AZITHROMYCIN 250 MG TAB (ZITHROMAX) PO STA (05:58)
[2021-12-03] MEDS ORDERED: KETOROLAC 30 MG/ML VIAL IVP ONE (06:00)
--- NOTE | 2021-12-03 06:13 | ED General ---
General Chief Complaint: Oral/Throat Problems Stated Complaint: NECK PAIN,PATRICIA,CAN'T SWALLOW Nursing Triage Note: Pt ambulates to ED9 with c/o fever, chills, headache and sore throat/pain with swallowing starting approximately 5 days ago. Pt states she came to ER Tuesday and was negative for Covid and strep, was given amoxicillian and a "steroid drink". Pt is taking abx as prescribed, states the drink helped until it wore off. Has been taking ibuprofen and Tylenol around the clock with minimal relief. Rates headache pain as 4/10 and throat pain as 7/10. Source of Information: Patient Exam Limitations: No Limitations History of Present Illness Date Seen by Provider: Dec 03, 2021 Time Seen by Provider: 05:00 Initial Comments This 31-year-old young lady had been seen in the emergency room 2 days ago and treated for pharyngitis. The strep culture had not returned yet by the time she checked in for this visit. Despite being treated and taking amoxicillin, she remains febrile with chills, headache, sore throat, and pain with swallowing. Symptoms have been persistent for 5 days. COVID testing was negative. Rghr-tik-fvryaml medications for pain and fever have been insufficient. See prior note for further details. Allergies and Home Medications Allergies Coded Allergies: NKANo Known Allergies (Verified Allergy, Mild, 07/01/16) Patient Home Medication List Home Medication List Reviewed: Yes Amoxicillin (Amoxicillin) 500 Mg Capsule, 500 MG PO TID Prescribed by: ARMAND MCARTHUR on 12/01/21 1716 Amoxicillin (Amoxicillin) 500 Mg Capsule, 1,000 MG PO TID Prescribed by: DEEPTHI WHITING on 12/03/21 0648 Cefdinir (Cefdinir) 300 Mg Capsule, 300 MG PO BID Prescribed by: DEEPTHI WHITING on 12/04/21 0801 Docusate Sodium (Docusate Sodium) 100 Mg Capsule, 100 MG PO BID PRN for CONSTIPATION-1ST LINE Prescribed by: IVANA PEREZ on 08/09/162000 Hydrocodone Bit/Acetaminophen (Lortab 5 Mg Tablet) 1 Each Tablet, 1-2 TAB PO Q4H PRN for PAIN-MODERATE Prescribed by: IVANA PEREZ on 08/09/162000 Ibuprofen (Ibuprofen) 600 Mg Tablet, 600 MG PO Q6H Prescribed by: IVANA PEREZ on 08/09/162000 Methocarbamol (Robaxin-750) 750 Mg Tablet, 750 MG PO Q4H Prescribed by: SARAH MANJARREZ on 10/02/181740 Naproxen (Naproxen) 500 Mg Tablet, 500 MG PO Q12H Prescribed by: SARAH MANJARREZ on 10/02/181740 Pnv95/Ferrous Fumarate/FA ( Caplet) 1 Each Tablet, 1 EACH PO DAILY, (Reported) Entered as Reported by: SEAN BERNARD on 04/06/162144 Prednisone (Prednisone) 50 Mg Tab, 50 MG PO DAILY Prescribed by: ARMAND MCARTHUR on 05/01/212115 Sulfamethoxazole/Trimethoprim (Bactrim Ds Tablet) 1 Each Tablet, 1 EACH PO BID Prescribed by: SHWETHA PAREDES on 06/13/21 0704 Review of Systems Review of Systems Constitutional: see HPI EENTM: see HPI Respiratory: no symptoms reported Cardiovascular: no symptoms reported Gastrointestinal: no symptoms reported Genitourinary: no symptoms reported : No Musculoskeletal: no symptoms reported Skin: no symptoms reported Psychiatric/Neurological: See HPI Hematologic/Lymphatic: No Symptoms Reported Past Nbnmfyl-Njepfn-Wmkikf Hx Patient Social History Tobacco Use?: Yes Tobacco type used: Cigarettes Use of E-Cig and/or Vaping dev: No Substance use?: No Alcohol Use?: No Immunizations Up To Date Tetanus Booster (TDap): Unknown Influenza Vaccine Up-to-Date: No; Not Current First/Initial COVID19 Vaccinat: JUNE 2020 Second COVID19 Vaccination Ron: JULY 2020 Third COVID19 Vaccination Date: MARCH 2021 Seasonal Allergies Seasonal Allergies: No Past Medical History Surgery/Hospitalization HX: TUBAL Surgeries: Yes (plantar fasciotomy, removal of ovarian cyst and cyst on sternum) Section, Orthopedic, Transurethral Resection Respiratory: No Cardiac: No Neurological: No : No 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 Disorders: Yes Female 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 Genitourinary: No Gastrointestinal: No Musculoskeletal: No Endocrine: Yes (gestational diabetes) HEENT: No Cancer: No Psychosocial: No Integumentary: No 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) Adverse Reaction/Blood Tranf: No Family Medical History Abdominal aortic aneurysm 19 FATHER Arthritis Cataracts 19 MOTHER Completed stroke 19 FATHER (aunt) Diabetes mellitus 19 FATHER (uncle) Hypercholesterolemia 19 FATHER Hypertension 19 FATHER Myocardial infarction Neoplasm 19 FATHER (aunt) Seizure disorder 19 MOTHER Severe allergy 19 FATHER (dad had surgery, reports being allergic to anesthesia, "they told him he shouldn't have woken up") No Family History of: AIDS [place]'s disease Alcoholism Alzheimer's disease Aphasia Asthma Cancer of mouth Cardiovascular disease Colon cancer Congenital disease Congenital heart disease Coronary thrombosis Cystic fibrosis Deafness or hearing loss Dementia Drug abuse Dysphasia Fibrocystic disease of breast Gastroenteritis Glaucoma Headache disorder Infertility Kidney disease Not obtainable due to adoption Osteoporosis Parkinson's disease Prostate cancer Psychosocial problem Respiratory disorder Thyroid disease Tuberculosis Visual disorder No Pertinent Family Hx Physical Exam Vital Signs Vital Signs - First Documented 12/03/21 04:27 Temp 38.0 Pulse 100 Resp 16 B/P (MAP) 122/77 (92) Pulse Ox 99 O2 Delivery Room Air Capillary Refill : Height, Weight, BMI Height: 5'7.00" Weight: 200lbs. 5.0oz. 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 Skin: Normal Color, Warm/Dry Procedures/Interventions Suture Size: 4-0 Progress/Results/Core Measures Suspected Sepsis SIRS Temperature: Pulse: 100 Respiratory Rate: 16 Laboratory Tests 12/03/21 05:00: White Blood Count 11.2H Blood Pressure 122 /77 Mean: 92 Laboratory Tests 12/03/21 05:00: Creatinine 0.69, Platelet Count 235 Results/Orders Lab Results Laboratory Tests Test 12/03/21 05:00 12/03/21 05:08 Range/Units White Blood Count 11.2 H 4.3-11.0 10^3/uL Red Blood Count 4.41 3.80-5.11 10^6/uL Hemoglobin 13.4 11.5-16.0 g/dL Hematocrit 40 35-52 % Mean Corpuscular Volume 91 80-99 fL Mean Corpuscular Hemoglobin 30 25-34 pg Mean Corpuscular Hemoglobin Concent 33 32-36 g/dL Red Cell Distribution Width 12.1 10.0-14.5 % Platelet Count 235 130-400 10^3/uL Mean Platelet Volume 10.9 9.0-12.2 fL Immature Granulocyte % (Auto) 1 % Neutrophils (%) (Auto) 68 42-75 % Lymphocytes (%) (Auto) 22 12-44 % Monocytes (%) (Auto) 9 0-12 % Eosinophils (%) (Auto) 1 0-10 % Basophils (%) (Auto) 0 0-10 % Neutrophils # (Auto) 7.6 1.8-7.8 10^3/uL Lymphocytes # (Auto) 2.4 1.0-4.0 10^3/uL Monocytes # (Auto) 1.0 0.0-1.0 10^3/uL Eosinophils # (Auto) 0.1 0.0-0.3 10^3/uL Basophils # (Auto) 0.0 0.0-0.1 10^3/uL Immature Granulocyte # (Auto) 0.1 0.0-0.1 10^3/uL Sodium Level 140 135-145 MMOL/L Potassium Level 4.0 3.6-5.0 MMOL/L Chloride Level 107 98-107 MMOL/L Carbon Dioxide Level 20 L 21-32 MMOL/L Anion Gap 13 5-14 MMOL/L Blood Urea Nitrogen 10 7-18 MG/DL Creatinine 0.69 0.60-1.30 MG/DL Estimat Glomerular Filtration Rate 118 BUN/Creatinine Ratio 14 Glucose Level 89 70-105 MG/DL Calcium Level 9.3 8.5-10.1 MG/DL C-Reactive Protein High Sensitivity 5.86 H 0.00-0.50 MG/DL Monoscreen NEGATIVE NEGATIVE Chlamydia DNA Probe Not Detected Not Detected Neisseria gonorrhoeae DNA Probe Not Detected Not Detected My Orders Orders - DEEPTHI GARCIA MD Basic Metabolic Panel (12/03/21 05:10) Cbc With Automated Diff (12/03/21 05:10) Hs C Reactive Protein (12/03/21 05:10) Monotest (12/03/21 05:10) Ed Iv/Invasive Line Start (12/03/21 05:10) Lactated Ringers (Lr 1000 Ml Iv Solution (12/03/21 05:15) Neisseria Gonorrhea Swab (12/03/21 05:10) Chlamydia Trachomatis Swab (12/03/21 05:10) Ketorolac Injection (Toradol Injection) (12/03/21 06:00) Azithromycin Tablet (Zithromax Tablet) (12/03/21 05:58) Ceftriaxone 1 Gm Pre-Mix (Rocephin 1 Gm (12/03/21 05:58) Lidocaine 2% Viscous 15 Ml (Xylocaine Vi (12/03/21 06:30) Medications Given in ED Vital Signs/I&O 12/03/21 12/03/21 12/03/21 04:27 05:02 07:05 Temp 38.0 37.6 Pulse 100 82 Resp 16 16 B/P (MAP) 122/77 (92) 129/81 Pulse Ox 99 99 O2 Delivery Room Air Room Air Room Air Capillary Refill : Blood Pressure Mean: 92 Progress Note #1: Progress Note 's were relatively unremarkable except for mild elevation in CRP. Patient was treated with Toradol, IV fluids, Rocephin IV, and viscous lidocaine orally. She did experience improvement. She had requested dexamethasone which have been provided on the prior visit. However, I do not want to continue with steroid therapy and mask the underlying condition. She also has had oral sexual contact with a new partner. STI swab was collected from the oropharynx. See discharge instructions for further discussion. Progress Note #2: Progress Note December 04, 2021, 07:59 - Patient called for culture results. The culture from the first ER visit revealed group B strep. She is still having a very slow recovery at a lot of sore throat. For this reason we will double cover with a cephalosporin in addition to the amoxicillin. The STI screening tests were not resulted yet. Cefdinir was sent to [facility]. Departure Impression Primary Impression: Pharyngitis Qualified Codes: J02.9 - Acute pharyngitis, unspecified Disposition: 01 HOME, SELF-CARE Condition: Improved Departure-Patient Inst. Decision time for Depature: 06:10 Referrals: ALICIA MARTIN MD (PCP/Family) Primary Care Physician Patient Instructions: Sore Throat, Adult ED Add. Discharge Instructions: Drink plenty of clear liquids to stay well-hydrated. You may take ibuprofen up to 600 mg every 6 hours and/or Tylenol (acetaminophen) up to 1000 mg every 6 hours as needed for pain. Additionally you may use the viscous lidocaine. Lightly gargle about 5 mL every 1-2 hours as needed for thr oat pain. Increase your amoxicillin dose to 1000 mg 3 times a day. Complete at least 10 full days of antibiotic therapy. Replace or sanitize toothbrushes and other oral instruments a few days before completing your antibiotics. Follow-up with your doctor or return to care if you are not improving quickly. Your throat culture should be available by tomorrow morning. Please call your doctor or the emergency room to review culture results as this may change the antibiotic therapy you are receiving. The STI screening that was performed will likely be available in 4 5 days. Review results with your primary care doctor. Return to care if you have worsening symptoms despite following these instructions. All discharge instructions reviewed with patient and/or family. Voiced understanding. Scripts Cefdinir (Cefdinir) 300 Mg Capsule 300 MG PO BID, #14 CAP 0 Refills Prov: DEEPTHI GARCIA MD 12/04/21 Amoxicillin (Amoxicillin) 500 Mg Capsule 1000 MG PO TID, #60 CAP 0 Refills Prov: DEEPTHI GARCIA MD 12/03/21 Work/School Note: Work Release Form Date Seen in the Emergency Department: Dec 03, 2021 Return to Work: Dec 05, 2021 Restrictions: Return-No Fever (24hrs), Return-No Vomiting(24hrs) Copy Copies To 1: ALICIA MARTIN MD, JOSHUA T MD Dec 03, 2021 06:13
[2021-12-03] MEDS ORDERED: LIDOCAINE 2% VISCOUS 15 ML UDC PO ONE (06:30)
[2021-12-03] MEDS ORDERED: AMOX500C2 PO (06:48)
[2021-12-03 07:05] VITALS: BP 129/81
[2021-12-04] MEDS ORDERED: CEFD300C3 PO (08:01)
== END 2021-12-03 07:05 | disposition home or self-care (01) ==
LOC: EDUNIT# 03:56 → ER 03:59
DX: J02.9 Acute pharyngitis, unspecified (principal)
CPT/HCPCS: 36415; 80048; 85025; 86141; 86308; 87491; 87591

== ENCOUNTER 2022-06-20 11:44 | Emergency (ER) | payer BC, MEDICAID ==
[~2022-06-20] VITALS: Ht 170 cm; Wt 100.0 kg
[~2022-06-20 11:44] MED LIST changes: +CEFD300C3 PO
--- NOTE | 2022-06-20 13:02 | ED EENT ---
History of Present Illness General Chief Complaint: Ear Problems Stated Complaint: EAR PAIN, SENSITIVITY TO HEAD Nursing Triage Note: PT TO ED W/ C/O X1 WK. WAS SEEN BY PCP ET TOLD EARDRUM WAS "BULGING". ALSO RECENTLY DX W/ STREP X1 WK AGO. Source: patient Exam Limitations: no limitations History of Present Illness Date Seen by Provider: Jun 20, 2022 Time Seen by Provider: 12:59 Initial Comments Patient is a 32-year-old female who presents ED with right-sided head pain. She states she was diagnosed with strep on Tuesday. She is currently on amoxicillin 500 mg twice daily. Patient states she started developing right ear pain and a sharp pain across her right side of her head for one week. She reports tenderness to palpate across her scalp. Denies any rash or swelling, visual changes. Denies any visual changes, vomiting, unilateral muscle weakness or sensory changes. Patient has been taking his Claritin, Zyrtec and Flonase for this pain on the right side of her head. This started on Tuesday. Denies any hearing loss, ear ringing, mumbling. Denies of any facial swelling, redness. Denies any dental pain. Allergies and Home Medications Allergies Coded Allergies: TRICEANo Known Allergies (Verified Allergy, Mild, 07/01/16) Patient Home Medication List Home Medication List Reviewed: Yes Amoxicillin (Amoxicillin) 500 Mg Capsule, 500 MG PO TID Prescribed by: ARMAND MCARTHUR on 12/01/21 1716 Amoxicillin (Amoxicillin) 500 Mg Capsule, 1,000 MG PO TID Prescribed by: DEEPTHI WHITING on 12/03/21 0648 Amoxicillin/Potassium Clav (Amox Tr-K Clv 875-125 mg Tab) 875 Mg-125 Mg Tablet, 1 EACH PO BID Prescribed by: ARMAND MCARTHUR on 06/20/22 1417 Cefdinir (Cefdinir) 300 Mg Capsule, 300 MG PO BID Prescribed by: DEEPTHI WHITING on 12/04/21 0801 Docusate Sodium (Docusate Sodium) 100 Mg Capsule, 100 MG PO BID PRN for CONSTIPATION-1ST LINE Prescribed by: IVANA PEREZ on 08/09/162000 Hydrocodone Bit/Acetaminophen (Lortab 5 Mg Tablet) 1 Each Tablet, 1-2 TAB PO Q4H PRN for PAIN-MODERATE Prescribed by: IVANA PEREZ on 08/09/162000 Hydrocodone/Acetaminophen (Hydrocodone-Acetamin 5-325 mg) 5 Mg-325 Mg Tablet, 1 TAB PO Q4H PRN for PAIN-MODERATE (5-7) Prescribed by: ARMAND MCARTHUR on 06/20/22 1417 Ibuprofen (Ibuprofen) 600 Mg Tablet, 600 MG PO Q6H Prescribed by: IVANA PEREZ on 08/09/162000 Methocarbamol (Robaxin-750) 750 Mg Tablet, 750 MG PO Q4H Prescribed by: SARAH MANJARREZ on 10/02/181740 Naproxen (Naproxen) 500 Mg Tablet, 500 MG PO Q12H Prescribed by: SARAH MANJARREZ on 10/02/18 174 Pnv95/Ferrous Fumarate/FA ( Caplet) 1 Each Tablet, 1 EACH PO DAILY, (Reported) Entered as Reported by: SEAN BERNARD on 04/06/16 214 Prednisone (Prednisone) 50 Mg Tab, 50 MG PO DAILY Prescribed by: ARMAND MCARTHUR on 05/01/21 2116 Sulfamethoxazole/Trimethoprim (Bactrim Ds Tablet) 1 Each Tablet, 1 EACH PO BID Prescribed by: SHWETHA PAREDES on 06/13/21 0704 Review of Systems Review of Systems Constitutional: No diaphoresis, No fever, No malaise, No weakness Eyes: Denies Drainage, Denies Decreased Acuity, Denies Pain, Denies Photophobia, Denies Previous Injury Ears: Denies Dizziness; Pain Nose: denies congestion Mouth: denies loose teeth, denies swelling Throat: denies swelling, denies discharge Respiratory: cough; No dyspnea on exertion, No short of breath Cardiovascular: No chest pain Gastrointestinal: No abdominal pain Musculoskeletal: No back pain, No joint pain Skin: change in color Past Kfnkngm-Pdlsqg-Hgrepj Hx Patient Social History Tobacco Use?: Yes Smoking Status: Current Everyday Smoker Use of E-Cig and/or Vaping dev: No Substance use?: No Alcohol Use?: No Pt feels they are or have been: No Immunizations Up To Date Tetanus Booster (TDap): Unknown First/Initial COVID19 Vaccinat: JUNE 2020 Second COVID19 Vaccination Ron: JULY 2020 Third COVID19 Vaccination Date: MARCH 2021 Seasonal Allergies Seasonal Allergies: No Past Medical History Surgery/Hospitalization HX: TUBAL Surgeries: Yes (plantar fasciotomy, removal of ovarian cyst and cyst on sternum) Section, Orthopedic, Transurethral Resection Respiratory: No Cardiac: No Neurological: No 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 Disorders: Yes 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 Genitourinary: No Gastrointestinal: No Musculoskeletal: No Endocrine: Yes (gestational diabetes) HEENT: No Cancer: No Psychosocial: No Integumentary: No 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) Adverse Reaction/Blood Tranf: No Family Medical History Abdominal aortic aneurysm 19 FATHER Arthritis Cataracts 19 MOTHER Completed stroke 19 FATHER (aunt) Diabetes mellitus 19 FATHER (uncle) Hypercholesterolemia 19 FATHER Hypertension 19 FATHER Myocardial infarction Neoplasm 19 FATHER (aunt) Seizure disorder 19 MOTHER Severe allergy 19 FATHER (dad had surgery, reports being allergic to anesthesia, "they told him he shouldn't have woken up") No Family History of: AIDS [place]'s disease Alcoholism Alzheimer's disease Aphasia Asthma Cancer of mouth Cardiovascular disease Colon cancer Congenital disease Congenital heart disease Coronary thrombosis Cystic fibrosis Deafness or hearing loss Dementia Drug abuse Dysphasia Fibrocystic disease of breast Gastroenteritis Glaucoma Headache disorder Infertility Kidney disease Not obtainable due to adoption Osteoporosis Parkinson's disease Prostate cancer Psychosocial problem Respiratory disorder Thyroid disease Tuberculosis Visual disorder No Pertinent Family Hx Physical Exam Vital Signs Vital Signs - First Documented 06/20/22 11:51 Temp 35.8 Pulse 67 Resp 20 B/P (MAP) 133/89 (104) Pulse Ox 98 O2 Delivery Room Air Height, Weight, BMI Height: 5'7.00" Weight: 200lbs. 5.0oz. 90.004922vm; 34.00 BMI Method:Stated General Appearance: WD/WN, no apparent distress Eyes: bilateral eye normal inspection, bilateral eye PERRL, bilateral eye EOMI Ears: right ear TM red, right ear TM bulging Nose: normal inspection Mouth/Throat: normal mouth inspection, pharynx normal, dental tenderness, excessive drooling Neck: non-tender, full range of motion, supple Cardiovascular: regular rate, rhythm, no edema, no gallop, no JVD Respiratory: chest non-tender, lungs clear, normal breath sounds, no respiratory distress, no accessory muscle use Gastrointestinal: normal bowel sounds, non tender, soft 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, no motor/sensory deficits, alert, normal mood/affect, oriented x 3 Procedures/Interventions Suture Size: 4-0 Progress/Results/Core Measures Results/Orders Lab Results Laboratory Tests Test 06/20/22 13:24 Range/Units White Blood Count 9.7 4.3-11.0 10^3/uL Red Blood Count 4.73 3.80-5.11 10^6/uL Hemoglobin 14.1 11.5-16.0 g/dL Hematocrit 42 35-52 % Mean Corpuscular Volume 89 80-99 fL Mean Corpuscular Hemoglobin 30 25-34 pg Mean Corpuscular Hemoglobin Concent 34 32-36 g/dL Red Cell Distribution Width 11.4 10.0-14.5 % Platelet Count 323 130-400 10^3/uL Mean Platelet Volume 10.2 9.0-12.2 fL Immature Granulocyte % (Auto) 1 % Neutrophils (%) (Auto) 66 42-75 % Lymphocytes (%) (Auto) 25 12-44 % Monocytes (%) (Auto) 5 0-12 % Eosinophils (%) (Auto) 2 0-10 % Basophils (%) (Auto) 1 0-10 % Neutrophils # (Auto) 6.4 1.8-7.8 10^3/uL Lymphocytes # (Auto) 2.5 1.0-4.0 10^3/uL Monocytes # (Auto) 0.5 0.0-1.0 10^3/uL Eosinophils # (Auto) 0.2 0.0-0.3 10^3/uL Basophils # (Auto) 0.1 0.0-0.1 10^3/uL Immature Granulocyte # (Auto) 0.1 0.0-0.1 10^3/uL Erythrocyte Sedimentation Rate 22 H 0-20 MM/HR Sodium Level 139 135-145 MMOL/L Potassium Level 3.9 3.6-5.0 MMOL/L Chloride Level 105 98-107 MMOL/L Carbon Dioxide Level 22 21-32 MMOL/L Anion Gap 12 5-14 MMOL/L Blood Urea Nitrogen 7 7-18 MG/DL Creatinine 0.71 0.60-1.30 MG/DL Estimat Glomerular Filtration Rate 115 BUN/Creatinine Ratio 10 Glucose Level 94 70-105 MG/DL Calcium Level 9.1 8.5-10.1 MG/DL Corrected Calcium 9.2 8.5-10.1 MG/DL Total Bilirubin 0.2 0.1-1.0 MG/DL Aspartate Amino Transf (AST/SGOT) 16 5-34 U/L Alanine Aminotransferase (ALT/SGPT) 20 0-55 U/L Alkaline Phosphatase 68 40-136 U/L C-Reactive Protein High Sensitivity 0.91 H 0.00-0.50 MG/DL Total Protein 7.3 6.4-8.2 GM/DL Albumin 3.9 3.2-4.5 GM/DL My Orders Orders - HYUN DEJESUS Cbc With Automated Diff (06/20/22 13:05) Comprehensive Metabolic Panel (06/20/22 13:05) Erythrocyte Sedimentation Rate (06/20/22 13:05) Hs C Reactive Protein (06/20/22 13:05) Hydrocodone/Apap 5/325 Tablet (Lortab 5 (06/20/22 13:15) Medications Given in ED Current Medications Medications Dose Ordered Sig/Pablo Route Start Time Stop Time Status Last Admin Dose Admin Acetaminophen/ Hydrocodone Bitart 1 ea ONCE ONCE PO 06/20/22 13:15 06/20/22 13:16 DC 06/20/22 13:17 1 EA Vital Signs/I&O 06/20/22 06/20/22 11:51 14:24 Temp 35.8 35.8 Pulse 67 65 Resp 20 18 B/P (MAP) 133/89 (104) 127/84 Pulse Ox 98 100 O2 Delivery Room Air Room Air Blood Pressure Mean: 104 Departure Communication (PCP) Patient reports his right-sided head pain for the past week with right ear pain. Diagnosed with strep on Tuesday placed amoxicillin. She states the throat has improved but complained of this right-sided sharp pain tenderness to palpate. She does have tenderness to palpate throughout the right scalp. There is no evidence of rash. No visual changes, unilateral muscle weakness or sensory changes. She has associated headache. No bruit or stridor. No history of coronary artery disease, vascular disease. No history of autoimmune disease. C oncerning evidence for right otitis media. She has no right mastoid tenderness. No TMJ tenderness. No dental tenderness. No evidence of Peyman angina. No meningeal signs. Due to patient's complaint CBC, CMP and ESR and CRP was ordered. Patient with a normal white blood count and unremarkable. CMP unremarkable. ESR of 22, CRP of 0.91. Inflammatory markers without significant change suggesting temporal arteritis. She has no fever. No jaw claudication, visual loss. She does not necessarily fit the criteria of being greater than 50 years of age, ESR greater than 50 mm/h, or new onset headache suggesting temporal arteritis. Concerning for the otitis media resulting in the right- sided facial pain. Switch amoxicillin to Augmentin and provide pain medication. Pain improved here with dose of pain medication. Return precaution were discussed with patient. Impression Primary Impression: Otitis media Disposition: 01 HOME, SELF-CARE Condition: Stable Departure-Patient Inst. Decision time for Depature: 14:16 Referrals: ALICIA MARTIN MD (PCP/Family) Primary Care Physician Patient Instructions: Ear Infections (Otitis Media) in Adults (DC) Scripts Hydrocodone/Acetaminophen (Hydrocodone-Acetamin 5-325 mg) 5 Mg-325 Mg Tablet 1 TAB PO Q4H PRN for PAIN-MODERATE (5-7), #6 TAB Prov: HYUN DEJESUS 06/20/22 Amoxicillin/Potassium Clav (Amox Tr-K Clv 875-125 mg Tab) 875 Mg-125 Mg Tablet 1 EACH PO BID for 10 Days, #20 TAB Prov: HYUN DEJESUS 06/20/22 HYUN DEJESUS Jun 20, 2022 13:02
[2022-06-20] MEDS ORDERED: HYDROcodone/APAP 5 MG/325 MG (LORTAB) TAB PO ONE (13:15)
[2022-06-20 13:32] LABS: BASOPHILS # (AUTO) 0.1 10^3/uL (0.0-0.1); BASOPHILS % (AUTO) 1 % (0-10); EOSINOPHILS # (AUTO) 0.2 10^3/uL (0.0-0.3); EOSINOPHILS % (AUTO) 2 % (0-10); HEMATOCRIT 42 % (35-52); HEMOGLOBIN 14.1 g/dL (11.5-16.0); LYMPHOCYTES # (AUTO) 2.5 10^3/uL (1.0-4.0); LYMPHOCYTES % (AUTO) 25 % (12-44); MEAN CORPUSCULAR HEMOGLOBIN 30 pg (25-34); MEAN CORPUSCULAR HGB CONC 34 g/dL (32-36); MEAN CORPUSCULAR VOLUME 89 fL (80-99); MEAN PLATELET VOLUME 10.2 fL (9.0-12.2); MONOCYTES # (AUTO) 0.5 10^3/uL (0.0-1.0); MONOCYTES % (AUTO) 5 % (0-12); NEUTROPHILS # (AUTO) 6.4 10^3/uL (1.8-7.8); NEUTROPHILS % (AUTO) 66 % (42-75); PLATELET COUNT 323 10^3/uL (130-400); WHITE BLOOD COUNT 9.7 10^3/uL (4.3-11.0)
[2022-06-20 13:44] LABS: ALBUMIN 3.9 GM/DL (3.2-4.5); POTASSIUM 3.9 MMOL/L (3.6-5.0)
[2022-06-20 13:45] LABS: CALCIUM 9.1 MG/DL (8.5-10.1)
[2022-06-20 13:46] LABS: TOTAL PROTEIN 7.3 GM/DL (6.4-8.2)
[2022-06-20 13:48] LABS: BILIRUBIN,TOTAL 0.2 MG/DL (0.1-1.0)
[2022-06-20 13:50] LABS: CREATININE SERUM 0.71 MG/DL (0.60-1.30)
[2022-06-20 14:02] LABS: ERYTHROCYTE SEDIMENTATION RATE 22 MM/HR (0-20)
[2022-06-20] MEDS ORDERED: AMOX1TAB12 PO (14:17)
[2022-06-20] MEDS ORDERED: ACHD5005 PO (14:17)
[2022-06-20 14:24] VITALS: BP 127/84
== END 2022-06-20 14:26 | disposition home or self-care (01) ==
LOC: EDUNIT# 11:44 → ER 11:46
DX: H66.91 Otitis media, unspecified, right ear (principal); F17.200 Nicotine dependence, unspecified, uncomplicated
CPT/HCPCS: 36415; 80053; 85025; 85652; 86141; 99283

== ENCOUNTER → 2022-07-08 | Outpatient (CLI) | payer BC, MEDICAID ==
[~2022-07-08] MED LIST changes: +AMOX1TAB12 PO
--- NOTE | 2022-07-08 14:39 | Diagnostic Imaging Report ---
INDICATION: Left breast lump. TECHNIQUE: Sonographic interrogation of the palpable lump in the left breast was performed. FINDINGS: There is a hypoechoic mass in the retroareolar left breast measuring 1.3 x 1.1 x 1.6 cm. No internal vascularity is identified. There is posterior acoustic enhancement. This is consistent with either a complex cyst or fibroadenoma. No other masses are seen. IMPRESSION: Circumscribed solid nodule versus complex cyst in the retroareolar left breast corresponding to the palpable abnormality. This may represent a fibroadenoma. After conversation with the patient, the patient elected to undergo either attempted aspiration or core biopsy of the lesion. The patient will be scheduled for ultrasound-guided biopsy. ACR BI-RADS Category 3: Probably benign findings. Dictated by: Dictated on workstation # [id number]
== END ==
LOC: RAD 14:00
PROVIDERS: ATTEND Nurse Practitioner Women's Health
DX: N63.20 Unspecified lump in the left breast, unspecified quadrant (principal)
CPT/HCPCS: 76641

== ENCOUNTER → 2022-07-21 | Outpatient (CLI) | payer BC, MEDICAID ==
[~2022-07-21] VITALS: Ht 175.3 cm; Wt 100.0 kg
[~2022-07-21] MED LIST changes: +LIDOCAINE 1% INJ 30 ML (XYLOCAINE) VIAL INJ ONE
--- NOTE | 2022-07-21 11:52 | Diagnostic Imaging Report ---
INDICATION: Left breast mass. Patient presents for ultrasound guided biopsy. Patient is brought to the sonographic suite placed on table in the supine position. Ultrasound imaging of the left breast was performed to evaluate appropriate entry site. Left breast was prepped and draped in usual sterile fashion. Small amount of 1% lidocaine was utilized for local anesthesia. A total of 4 core biopsies were made of a hypoechoic mass in the retroareolar left breast utilizing a 14-gauge achieve needle. A marker clip was deployed. Hemostasis was obtained using manual compression. Patient tolerated the procedure well and left Department in stable condition. IMPRESSION: Successful ultrasound-guided core biopsy of the solid mass in the retroareolar left breast. Pathology results are currently pending. Dictated by: Dictated on workstation # [id number]
== END ==
LOC: RAD 10:19
PROVIDERS: ATTEND Nurse Practitioner Women's Health
DX: N63.20 Unspecified lump in the left breast, unspecified quadrant (principal)
CPT/HCPCS: 19083

== ENCOUNTER 2022-08-04 06:30 | Outpatient (CLI) | payer BC, MEDICAID ==
[~2022-08-04] VITALS: Ht 175.3 cm; Wt 100.0 kg
[~2022-08-04 06:30] MED LIST changes: -LIDOCAINE 1% INJ 30 ML (XYLOCAINE) VIAL INJ ONE
[2022-08-05] MEDS ORDERED: HYDR-3817 PO (14:27)
== END 2022-08-04 08:49 | disposition home or self-care (01) ==
LOC: PREOP 06:30
PROVIDERS: ATTEND Surgery
DX: Z01.818 Encounter for other preprocedural examination (principal); N63.20 Unspecified lump in the left breast, unspecified quadrant

== ENCOUNTER 2022-08-05 13:20 | Day surgery (SDC) | payer BC, MEDICAID ==
[~2022-08-05] VITALS: Ht 175.3 cm; Wt 100.0 kg
[2022-08-05] VITALS (12 sets, daily range): BP systolic 111–133; BP diastolic 64–97
[2022-08-05] MEDS ORDERED: ceFAZolin INJECTION 1,000 MG in NS (IVPB) 50 ML IV ONE (13:45)
[2022-08-05] MEDS ORDERED: BUP/EPI 0.5% 1:200,000 (SENSORCAINE) 30 ML VIAL ONE (13:55)
[2022-08-05] MEDS ORDERED: fentaNYL INJ 100 MCG/2 ML AMP ONE (13:59)
[2022-08-05] MEDS ORDERED: proPOfol 200 MG/20 ML (DIPRIVAN) VIAL IV ONE (13:59)
[2022-08-05] MEDS ORDERED: MIDAZOLAM 2 MG/2 ML (VERSED) VIAL ONE (13:59)
[2022-08-05] MEDS ORDERED: LIDOCAINE PF 2% 5 ML (XYLOCAINE) VIAL ONE (13:59)
[2022-08-05] MEDS ORDERED: ONDANSETRON 4 MG/2 ML (SDV) Z0FRAN ONE (13:59)
[2022-08-05] MEDS: LACTATED RINGERS 1,000 ML IV PRN ×2 (14:04→15:09)
[2022-08-05] MEDS ORDERED: ceFAZolin INJECTION 2,000 MG in NS (IVPB) 50 ML IV ONE (14:15)
--- NOTE | 2022-08-05 14:25 | Progress Note-Pre Operative ---
Pre-Operative Progress Note Date of Available H&P: Aug 05, 2022 Date H&P Reviewed: Aug 05, 2022 Time H&P Reviewed: 13:30 History & Physical: No changes noted Pre-Operative Diagnosis: persistent left breast mass ANGEL GARCIA MD Aug 05, 2022 14:25
[2022-08-05] MEDS ORDERED: HYDR-3817 PO (14:27)
--- NOTE | 2022-08-05 14:27 | Discharge Inst-Surgical ---
D/C Lap Instructions-JOSE New, Converted, or Re-Newed RX: RX on Chart Follow Up Appt in 2 weeks Activity as tolerated No driving for 24 hours No driving while on pain medications Incentive Spirometry use every 2 hours while awake Regular Diet Symptoms to Report: Fever over 101 degree F, Nausea/Vomiting Infection Signs and Symptoms to report: Increased redness, Foul odor of wound, Increased drainage Bathing instructions: May shower Operative Area Clean/Dry; Keep incision clean/dry If any problems/questions: Contact your physician or go to Emergency Room ANGEL GARCIA MD Aug 05, 2022 14:27
[2022-08-05] MEDS ORDERED: ONDANSETRON 4 MG/2 ML (SDV) Z0FRAN IVP PRN ×2 (14:30→15:30)
[2022-08-05] MEDS ORDERED: ACETAMINOPHEN 325 MG TABLET PO PRN (14:30)
[2022-08-05] MEDS ORDERED: oxyCODONE/APAP 5/325MG (PERCOCET 5) TABLET PO PRN (14:30)
[2022-08-05] MEDS ORDERED: morphine INJ 10 MG/ML 1ML (SYR OR VIAL) IVP PRN ×2 (14:30)
[2022-08-05] MEDS ORDERED: BUP/EPI 0.5% 1:200,000 (SENSORCAINE) 30 ML VIAL INJ ONE (14:50)
[2022-08-05] MEDS ORDERED: SEVOFLURANE (ULTANE) 15 ML INHAL SOLN ONE (15:11)
--- NOTE | 2022-08-05 15:22 | Progress Note-Post Operative ---
Post-Operative Progess Note Surgeon (s)/Resident Services Manager (s) Surgeon ANGEL GARCIA MD Resident Services Manager: lynne ellis INCOMING INSPECTOR Pre-Operative Diagnosis persistent left breast mass Post-Operative Diagnosis same(ductal abscess) Procedure & Operative Findings Date of Procedure 08/05/22 Procedure Performed/Findings left breast ductal/mass quadrentectomy Anesthesia Type general LMA Estimated Blood Loss Estimated blood loss (mL): minimal Specimens/Packing Specimens Removed left breast mass/inferior quadrant ducts ANGEL GARCIA MD Aug 05, 2022 15:22
--- NOTE | 2022-08-05 15:27 | Anesthesia-General Post-Op ---
General Patient Condition Mental Status/LOC: Same as Preop Cardiovascular: Satisfactory Nausea/Vomiting: Absent Respiratory: Satisfactory Pain: Controlled Complications: Absent Post Op Complications Complications None Follow Up Care/Instructions Patient Instructions None needed. Anesthesia/Patient Condition Patient Condition Patient is awake in PACU and doing well, no complaints, stable vital signs, no apparent adverse anesthesia problems. No complications reported per nursing. LUCIANA MARTELL DO Aug 05, 2022 15:27
[2022-08-05] MEDS ORDERED: morphine INJ 10 MG/ML 1ML (SYR OR VIAL) IVP ONE (15:30)
--- NOTE | 2022-08-05 20:31 | OPERATIVE REPORT ---
DATE OF SERVICE: 08/05/2022 ATTENDING PRIMARY CARE PHYSICIAN: Dr. Jerome Cortes. PREOPERATIVE DIAGNOSIS: Persistent left breast mass. POSTOPERATIVE DIAGNOSES: Left breast mass/inferior quadrant ductal cyst versus abscess. PROCEDURE: Left breast ductal quadrantectomy. SURGEON: Angel Garcia MD HOOF TRIMMER: Rashid Mendoza APRN ANESTHESIA: General laryngeal mask airway. ESTIMATED BLOOD LOSS: Minimal. FINDINGS: Cystic lesion, possible abscess connected to the ductal system of the inferior quadrant, left breast. DISPOSITION: The patient tolerated the procedure well. INDICATIONS: The patient is a 32-year-old female who developed a palpable lesion at approximately the 6 o'clock position of the nipple areolar complex. She states that this grew larger in size and became painful. 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 She states that the lesion has persisted and again is painful and would like to have the lesion removed. She does not report any abnormal nipple discharge. However, there is a mild amount of nipple dimpling. She has not had any previous breast biopsies and does not report any family history of breast cancer. DESCRIPTION OF PROCEDURE: The patient was brought to the operating room, laid supine on the table. After adequate IV pain and sedative medications and general laryngeal mask airway intubation, the breast was prepped and draped in standard surgical fashion. A 0.5% Marcaine was then used to anesthetize the overlying skin in the inferior quadrant of the nipple-areolar complex. A crescent-shaped skin incision along the border was then made using a #15 blade. The lesion appeared to be within the ductal system and we proceeded to proceed with a ductal quadrantectomy including the lesion as well as the ductal system using Metzenbaum scissors as well as electrocautery. We did this by retracting the lesion using Dacia clamps and systematically dissecting the ductal system towards the skin into the main duct innervating the inferior quadrant of the breast as well as the surrounding normal tissue. The lesion was then fully excised and sent to pathology. Good hemostasis was achieved using electrocautery. The breast tissue was then loosely approximated using 3-0 Vicryl interrupted sutures and skin was closed using 4-0 Monocryl running subcuticular suture. Wound was then cleaned and covered with Dermabond. The patient tolerated the procedure well. We instructed to keep the area clean and dry and to have her follow up in my office in approximately 2 weeks to discuss the pathology results. She does not have any major restrictions; however, again no severe hyperextension of the upper extremity or significant lifting or exertion for 2 weeks. Job ID: [id number] DocumentID: [id number] Dictated Date: 08/05/2022 15:29:36 Supervisor Fireworks [employer] Date: 08/05/2022 20:29:00 Dictated By: ANGEL GARCIA MD MTDD
== END 2022-08-05 17:15 | disposition home or self-care (01) ==
LOC: SDC 13:20
PROVIDERS: ATTEND Surgery
DX: N61.1 Abscess of the breast and nipple (principal); N60.32 Fibrosclerosis of left breast; F17.210 Nicotine dependence, cigarettes, uncomplicated
CPT/HCPCS: 84703; 87081

== ENCOUNTER 2022-08-12 17:23 | Emergency (ER) | payer BC, MEDICAID ==
[~2022-08-12] VITALS: Ht 175.3 cm; Wt 99.8 kg
[~2022-08-12 17:23] MED LIST changes: +HYDR-3817 PO
[2022-08-12 17:32] VITALS: BP 135/83
[2022-08-12] MEDS ORDERED: CEPH500T PO (18:33)
--- NOTE | 2022-08-12 18:33 | ED Integumentary General ---
General Chief Complaint: Post OP Complications/Pain Stated Complaint: SURGERY SITE ISSUE Nursing Triage Note: PT AMB TO ED BY POV WITH C/O DRAINAGE FROM INCISION SITE. PT REPORTS SHE WAS GETTING INTO THE SHOWER THIS EVENING AND NOTICED DRAINAGE COMING FROM INCISION SITE ON L AREOLA. PT REPORTS SHE HAS NOT NOTICED ANY DRAINAGE UNTIL THIS POINT. SEROSANGUINOUS DRAINAGE NOTED ON GAUZE COVERING L AREOLA, NO REDNESS, EDEMA, OR FOUL SMELL NOTED. Source: patient Exam Limitations: no limitations History of Present Illness Date Seen by Provider: Aug 12, 2022 Time Seen by Provider: 18:19 Initial Comments 32-year-old female presents to the emergency department for evaluation of post operative incision that started draining today. She had what they believed to be a benign mass removed from her left breast with some milk ducts taken as well per her report. Operation was [address] Garcia. She was doing well but went back to work today. During the day today she had some clear drainage from the incision. It had previously not been draining. She denies any fevers chills nausea or vomiting. No redness to the wound and states the wound is healing well. All other systems reviewed and negative except documented per HPI. Voice recognition software was used to help create this chart Allergies and Home Medications Allergies Coded Allergies: NKANo Known Allergies (Verified Allergy, Mild, 08/04/22) Patient Home Medication List Home Medication List Reviewed: Yes Hydrocodone/Acetaminophen (Hydrocodone-Acetamin 7.5-325) 7.5 Mg-325 Mg Tablet, 1 EACH PO Q4H PRN for PAIN-BREAKTHROUGH Prescribed by: ANGEL GARCIA on 08/05/22 2183 Review of Systems Review of Systems Constitutional: see HPI Past Lrlhssu-Vmomie-Xxdhqx Hx Patient Social History Tobacco Use?: Yes Tobacco type used: Cigarettes Smoking Status: Current Everyday Smoker Use of E-Cig and/or Vaping dev: Yes E-Cig or Vaping type used: Nicotine Use of E-Cig and/or Vaping Guilherme: Current Everyday User Substance use?: No Alcohol Use?: No Pt feels they are or have been: No Immunizations Up To Date Tetanus Booster (TDap): Less than 5yrs Influenza Vaccine Up-to-Date: Yes; Up-to-Date First/Initial COVID19 Vaccinat: 07/02/20 Second COVID19 Vaccination Ron: 07/24/20 Third COVID19 Vaccination Date: 07/02/20 Seasonal Allergies Seasonal Allergies: No Past Medical History Surgery/Hospitalization HX: TUBAL Surgeries: Yes (plantar fasciotomy, removal of ovarian cyst and cyst on sternum) Section, Orthopedic, Transurethral Resection, Tubal Ligation Respiratory: No Currently Using CPAP: No Currently Using BIPAP: No Cardiac: No Neurological: No 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 Disorders: Yes 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 Genitourinary: No Gastrointestinal: No Musculoskeletal: No Endocrine: Yes (gestational diabetes) HEENT: No Cancer: No Psychosocial: No Integumentary: No 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) Adverse Reaction/Blood Tranf: No Family Medical History Reviewed Nursing Family Hx Abdominal aortic aneurysm 19 FATHER Arthritis Cataracts 19 MOTHER Completed stroke 19 FATHER (aunt) Diabetes mellitus 19 FATHER (uncle) Hypercholesterolemia 19 FATHER Hypertension 19 FATHER Myocardial infarction Neoplasm 19 FATHER (aunt) Seizure disorder 19 MOTHER Severe allergy 19 FATHER (dad had surgery, reports being allergic to anesthesia, "they told him he shouldn't have woken up") No Family History of: AIDS Newport's disease Alcoholism Alzheimer's disease Aphasia Asthma Cancer of mouth Cardiovascular disease Colon cancer Congenital disease Congenital heart disease Coronary thrombosis Cystic fibrosis Deafness or hearing loss Dementia Drug abuse Dysphasia Fibrocystic disease of breast Gastroenteritis Glaucoma Headache disorder Infertility Kidney disease Not obtainable due to adoption Osteoporosis Parkinson's disease Prostate cancer Psychosocial problem Respiratory disorder Thyroid disease Tuberculosis Visual disorder No Pertinent Family Hx Physical Exam Vital Signs Vital Signs - First Documented 08/12/22 17:32 Temp 36.7 Pulse 71 Resp 16 B/P (MAP) 135/83 (100) Pulse Ox 98 O2 Delivery Room Air Capillary Refill : Less Than 3 Seconds General Appearance: WD/WN, no apparent distress Cardiovascular: regular rate, rhythm, no murmur Respiratory: chest non-tender, lungs clear, normal breath sounds Gastrointestinal: normal bowel sounds, non tender, soft Neurologic/Psychiatric: alert, normal mood/affect, oriented x 3 Skin: normal color, other (Inframammary incision to the left breast with a small amount of serous drainage from a tiny area within the otherwise well- healed incision. No redness or purulence.) Procedures/Interventions Suture Size: 4-0 Progress/Results/Core Measures Results/Orders Vital Signs/I&O 08/12/22 17:32 Temp 36.7 Pulse 71 Resp 16 B/P (MAP) 135/83 (100) Pulse Ox 98 O2 Delivery Room Air Blood Pressure Mean: 100 Departure Communication (Admissions) Patient is hemodynamically stable. There is no evidence for overt infection at this time. I believe she likely developed a seroma or had increase inflammatory lymphatic fluid buildup when she use her arm more at work today after going back for the first time. Out of abundance of caution I will go ahead and give her a short course of antibiotics and strict return precautions however I do not think that this is an abscess at this time. She sees Dr. Gacria in 1 week. I advised her to call the clinic tomorrow to see if they wanted to see her sooner. She states understanding. She is discharged in stable condition Impression Primary Impression: Postoperative wound seroma Disposition: HOME, SELF-CARE Condition: Stable Departure-Patient Inst. Referrals: ANGEL GARCIA MD, CHAD C MD (PCP/Family) Primary Care Physician Patient Instructions: Seroma Add. Discharge Instructions: Take the antibiotics as prescribed until they are gone. Call Dr. Garcia's office in the morning to see if they want to see you any sooner. Return to the emergency department immediately for any redness that spreading, fevers or drainage that looks like pus. Scripts Cephalexin (Cephalexin) 500 Mg Tablet 500 MG PO BID for 7 Days, #14 TAB Prov: EL RODRIGES DO 08/12/22 EL RODRIGES DO Aug 12, 2022 18:33
== END 2022-08-12 18:47 | disposition home or self-care (01) ==
LOC: EDUNIT# 17:23 → ER 17:25
DX: L76.34 Postprocedural seroma of skin and subcutaneous tissue following other procedure (principal); F17.210 Nicotine dependence, cigarettes, uncomplicated; Z90.12 Acquired absence of left breast and nipple
CPT/HCPCS: 99281

== ENCOUNTER → 2022-11-17 | Outpatient (CLI) | payer BC, MEDICAID ==
[~2022-11-17] MED LIST changes: +CEPH500T PO
--- NOTE | 2022-11-17 12:24 | Diagnostic Imaging Report ---
EXAMINATION: Ultrasound left breast. INDICATION: Left breast pain. FINDINGS: The previous left breast ultrasound exam of 07/08/2022 noted a 1.3 x 1.1 x 1.6 cm hypoechoic mass within the left breast. This was subsequently biopsied using ultrasound guidance on 07/21/2022 and proved be an abscess. It is my understanding that the patient subsequently underwent a surgical removal of the abscess. The patient now complains of pain and swelling in the retroareolar region. There is no discrete mass in this area to suggest a recurrent abscess; however, the breast tissue in this area is heterogeneous with some increased vascularity. I suspect that there is an inflammatory/infectious process present. Clinical followup is recommended. IMPRESSION: There does appear to be edema/inflammation/infection of the retroareolar region but there is no discrete abscess identified. Clinical followup is recommended. ACR BI-RADS Category 1: Negative. Result letter will be mailed to the patient. Note: At least 10% of breast cancer is not imaged by mammography. Dictated by: Dictated on workstation # [id number]
== END ==
LOC: RAD 10:46
PROVIDERS: ATTEND Nurse Practitioner Family
DX: N64.4 Mastodynia (principal); Z87.898 Personal history of other specified conditions